=== PATIENT | male | born 2000 | race Caucasian/White ===

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

== ENCOUNTER → 2021-02-10 16:35 | Outpatient (CLI) | payer OTHER, SELFPAY ==
--- NOTE | 2021-02-10 16:43 | RAD_ITS ---
EXAM: XR ABDOMEN, 2 VIEWS CLINICAL INDICATION: RUQ ABD PAIN TECHNIQUE: Frontal view of the abdomen/pelvis with upright view of the abdomen. This report was created using [employer] report generation technology. COMPARISON: None. FINDINGS: LOWER THORAX: No acute pathology. INTRAPERITONEAL SPACE: No free air. GASTROINTESTINAL TRACT: Constipation. Stool throughout the colon. Non-obstructive. No bowel or stomach distention. ORGANS: Unremarkable as visualized. No organomegaly. No abnormal calcifications. BONES/JOINTS: No acute pathology. SOFT TISSUES: No acute pathology. RAD/Abd Inc Decub and/or Erect IMPRESSION: Constipation. Electronically Signed: Elder Gonsalez MD at 16:48 EDT , Service support ,
[2021-02-10 17:41] LABS: Absolute Lymphocyte Count 2.32 X10^3/uL (0.83-4.51); Absolute Neutrophil Count 4.2 X10^3/uL (2.0-7.7); Basophil# 0.05 X10^3/uL; Basophil% 0.7 % (0-1); Eosinophil# 0.06 X10^3/uL; Eosinophils% 0.8 % (0-5); Hematocrit 48.2 % (40-54); Hemoglobin 15.8 g/dL (13.0-16.5); Lymphocyte # 2.32 X10^3/ul (0.83-4.51); Lymphocyte % 31.4 % (19-41); Mean Corp Hgb Conc 32.8 g/dL (32-36); Mean Corpuscular Hgb 29.4 pg (27.0-32.0); Mean Corpuscular Volume 89.8 fL (80-94); Mean Platelet Vol. 9.7 fl (6.2-12.0); Monocyte# 0.77 X10^3/uL; Monocyte% 10.4 % (0-10); NRBC Flagged by Analyzer 0 % (0-5); Neutrophil # 4.16 X10^3/uL (2.7-7.7); Neutrophil % 56.4 % (47-70); Platelet Count 314 K/mm3 (150-450); RBC Distribution Width CV 12.8 % (11.6-14.6); RBC Distribution Width SD 41.8 fl (35.1-43.9); Red Blood Count 5.37 M/mm3 (4.6-6.2); White Blood Count 7.4 K/mm3 (4.4-11.0)
[2021-02-10 18:35] LABS: AST(SGOT) 18 U/L (15-37); Alanine Aminotransfer ALT/SGPT 28 U/L (16-61); Albumin, Serum 3.5 g/dL (3.2-5.0); Alkaline Phosphatase 59 U/L (45-117); Anion Gap 3 (5-15); BUN 11 mg/dL (7-18); BUN/Creat Ratio 11.5 RATIO (10-20); Calcium,Total 9.5 mg/dL (8.5-10.1); Chloride 107 mmol/L (98-107); Creatinine, Serum 0.96 mg/dL (0.70-1.30); EST Glomerular Filtration Rate 107 mL/min (>60); Est Glom Filt Rate - Afr Amer 129 mL/min (>60); Globulin 3.6 g/dL (2.2-4.2); Glucose 99 mg/dL (74-106); Lipase 98 U/L (73-393); Potassium 3.9 mmol/L (3.5-5.1); Protein, Total 7.1 g/dL (6.4-8.2); Sodium Level 141 mmol/L (136-145)
== END ==
PROVIDERS: PCP Family Medicine; Referring Provider Family Medicine; Visit Provider Family Medicine
DX: K59.00 Constipation, unspecified (principal)
CPT/HCPCS: 36415; 74019; 80053; 83690; 85025

== ENCOUNTER 2021-04-15 20:02 | Emergency (ER) | payer OTHER, SELFPAY ==
[2021-04-15 20:03] VITALS: BP 143/102; PULSE 120; RESP 18; TEMP 35.9; O2SAT 97; BMI 28.8
--- NOTE | 2021-04-15 22:06 | EDS_ITS ---
HPI History of Present Illness Chief Complaint: Dizziness Informant: patient Narrative Narrative: 21-year-old male with a history of hypertension and stroke presents to the emergency room following an episode where he felt lightheaded. 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 Symptoms have subsequently left. He states that he had a stroke earlier this year became concerned. He did not have any arm or leg symptoms denies any speech symptoms. Patient notes that while mixing chemicals did not have any dyspnea or coughing. He notes that he also has a history of anxiety and does feel somewhat anxious about healthcare. [facility] Medical History CVA (cerebral vascular accident) Hypertension Physical exam, pre-employment Home Medications lisinopril 10 mg PO DAILY 01/23/19 [History Last Taken Unknown] escitalopram oxalate [Lexapro] 10 mg PO DAILY 06/12/19 [History Last Taken Unknown] omeprazole 20 mg PO DAILY 06/12/19 [History Last Taken Unknown] buspirone 5 mg PO BID 08/19/20 [History Last Taken Unknown] aspirin 81 mg PO DAILY@0800 #30 tab.chew 08/20/20 [Rx Last Taken Unknown] atorvastatin 40 mg PO QHS #30 tablet 08/20/20 [Rx Last Taken Unknown] clopidogrel 75 mg PO DAILY #21 tablet 08/20/20 [Rx Last Taken Unknown] Allergy/AdvReac Type Severity Reaction Status Date / Time No Known Allergies Allergy Verified 04/15/21 20:05 Social History (Updated 04/15/21 @ 22:[address] Casa Cohen DO) Smoking Status: Never smoker substance use type: does not use ROS ROS ED Constitutional Constitutional ED: Denies chills, fever(s) or weight loss Eyes Eyes: Denies change in vision or diplopia ENT ENT ED: Denies ear pain, rhinorrhea or sore throat Cardiovascular Cardiovascular: Denies chest pain, orthopnea, palpitations or racing heartbeat Respiratory/Chest Respiratory/Chest: Denies cough, dyspnea or orthopnea Gastrointestinal Gastrointestinal: Reports abdominal pain; Denies diarrhea, nausea or vomiting Genitourinary Genitourinary ED: Denies dysuria, hematuria or urinary frequency Musculoskeletal Musculoskeletal: Denies arthralgias or myalgias Integumentary Denies abscess or rash Neurologic Neurologic: Reports other Details: Lightheadedness ; Denies headache(s) or weakness Psychiatric Psychiatric: Denies anxiety, depression, suicidal ideation or suicidal thoughts Endocrine Endocrinology: Denies polydipsia, polyphagia or polyuria Allergic/Immunologic Allergic/Immunologic ED: Denies mouth swelling, tongue swelling or urticaria EXAM Physical Exam Const Vital Signs: 04/15/21 20:03 04/15/21 21:09 04/15/21 22:08 Temperature 96.7 F L Temperature Source Temporal Pulse Rate 120 H 117 H Respiratory Rate 18 Respiratory Effort Normal Blood Pressure 143/102 H Blood Pressure Mean 115 Pulse Ox 97 93 Oxygen Delivery Method Room Air Room Air Positive well nourished and well developed General Appearance ED: well developed HEENT Reports normocephalic, head/scalp atraumatic and moist mucous membranes Eyes PERRL and EOMs intact bilaterally Neck no lymphadenopathy, supple and no JVD Resp normal respiratory effort and clear to auscultation bilaterally Cardio regular rate, regular rhythm and no murmurs GI normal to inspection, nondistended, normoactive bowel sounds and non-tender Palpation: soft Back/Spine no CVA tenderness and normal ROM Extremity normal to inspection General Extremety ED: Negative for edema General Extremity: Negative for edema Neuro oriented x3 and CN's II-XII intact bilaterally Sensorium / Orientation: alert Motor Exam: strength 5/5 throughout Psych mental status grossly normal Mood & Affect: Negative for depressed or tearful Skin no rashes or lesions noted and no wounds MDM MDM MDM Narrative Medical decision making narrative: Patient observed on the monitor. He remains tachycardic but I believe that this is most likely due to his anxiety and he concurs. Basic blood work showed no anemia. Renal function and liver function are normal. Electrolytes are checked. Noted glucose of 142 and was discussed with the patient that next time he has a doctor's appointment for primary care he should perhaps discuss fasting blood work. Lab Data Labs: Laboratory Results - last 24 hr 04/15/21 04/15/21 21:03 21:03 WBC 12.3 H RBC 5.29 Hgb 15.8 Hct 46.8 MCV 88.5 MCH 29.9 MCHC 33.8 RDW Std Deviation 41.3 RDW Coeff of Asya 12.8 Plt Count 287 MPV 9.5 Immature Gran % (Auto) 0.300 Neut % (Auto) 70.8 H Lymph % (Auto) 23.3 Titus % (Auto) 4.9 Eos % (Auto) 0.2 Baso % (Auto) 0.5 Absolute Neuts (auto) 8.7 H Absolute Lymphs (auto) 2.87 Nucleated RBC % 0 Sodium 140 Potassium 3.6 Chloride 106 Carbon Dioxide 29.0 Anion Gap 5 BUN 16 Creatinine 1.15 Estim Creat Clear Calc 102.46 Est GFR (MDRD) Af Amer 104 Est GFR (MDRD) Non-Af 86 BUN/Creatinine Ratio 13.9 Glucose 142 H Calcium 9.2 Total Bilirubin 0.30 AST 22 ALT 43 Alkaline Phosphatase 57 Total Protein 7.2 Albumin 3.5 Globulin 3.7 Albumin/Globulin Ratio 0.9 EKG Initial EKG: Attestation: I personally reviewed and interpreted this EKG as follows: Comments: Sinus tachycardia with a ventricular rate of 110 bpm Discharge Plan Triage Chief Complaint: Dizziness ED Provider: Casa Cohen Dx/Rx/DC Orders Clinical Impression: Light-headedness, Sinus tachycardia Instructions: ED Dizziness, Uncertain Cause Prescriptions: No Action lisinopril 5 MG tablet 10 mg PO DAILY RF: 0 omeprazole 20 MG capsule,delayed release(DR/EC) 20 mg PO DAILY RF: 0 escitalopram oxalate [Lexapro] 10 MG tablet 10 mg PO DAILY RF: 0 buspirone 5 MG tablet 5 mg PO BID RF: 0 atorvastatin 40 MG tablet 40 mg PO QHS Qty: 30 RF: 1 aspirin 81 MG tablet,chewable 81 mg PO DAILY@0800 Qty: 30 RF: 1 clopidogrel 75 MG tablet 75 mg PO DAILY Qty: 21 RF: 0 Primary Care Provider: Eusebio Galarza Referrals: Eusebio Galarza MD [Primary Care Provider] - As Needed Disposition Disposition: Home, Self Care
--- NOTE | 2021-04-15 22:06 | EKG12_ITS ---
Test Reason : DIZZY Blood Pressure : / mmHG Vent. Rate : 110 BPM Atrial Rate : 110 BPM P-R Int : 142 ms QRS Dur : 088 ms QT Int : 330 ms P-R-T Axes : 037 079 -23 degrees QTc Int : 446 ms Sinus tachycardia Nonspecific T wave abnormality Abnormal ECG Confirmed by JOSSELINE PITTMAN, KARTHIKEYAN ([id number]), senior editor YAMILA THAYER ([id number]) on 04/17/2021 8:23:31 AM Referred By: CHAYO Confirmed By:KARTHIKEYAN MANJARREZ MD
[2021-04-15 22:08] VITALS: PULSE 117; O2SAT 93
[2021-04-15 22:21] LABS: Absolute Lymphocyte Count 2.87 X10^3/uL (0.83-4.51); Absolute Neutrophil Count 8.7 X10^3/uL (2.0-7.7); Basophil# 0.06 X10^3/uL; Basophil% 0.5 % (0-1); Eosinophil# 0.03 X10^3/uL; Eosinophils% 0.2 % (0-5); Hematocrit 46.8 % (40-54); Hemoglobin 15.8 g/dL (13.0-16.5); Lymphocyte # 2.87 X10^3/ul (0.83-4.51); Lymphocyte % 23.3 % (19-41); Mean Corp Hgb Conc 33.8 g/dL (32-36); Mean Corpuscular Hgb 29.9 pg (27.0-32.0); Mean Corpuscular Volume 88.5 fL (80-94); Mean Platelet Vol. 9.5 fl (6.2-12.0); Monocyte% 4.9 % (0-10); NRBC Flagged by Analyzer 0 % (0-5); Neutrophil % 70.8 % (47-70); Platelet Count 287 K/mm3 (150-450); RBC Distribution Width CV 12.8 % (11.6-14.6); RBC Distribution Width SD 41.3 fl (35.1-43.9); Red Blood Count 5.29 M/mm3 (4.6-6.2); White Blood Count 12.3 K/mm3 (4.4-11.0)
[2021-04-15 22:37] LABS: ALB/GLOB Ratio 0.9 RATIO (0.9-2.4); AST(SGOT) 22 U/L (15-37); Alanine Aminotransfer ALT/SGPT 43 U/L (16-61); Albumin, Serum 3.5 g/dL (3.2-5.0); Alkaline Phosphatase 57 U/L (45-117); Anion Gap 5 (5-15); BUN 16 mg/dL (7-18); BUN/Creat Ratio 13.9 RATIO (10-20); Calcium,Total 9.2 mg/dL (8.5-10.1); Chloride 106 mmol/L (98-107); Creatinine, Serum 1.15 mg/dL (0.70-1.30); EST Glomerular Filtration Rate 86 mL/min (>60); Est Glom Filt Rate - Afr Amer 104 mL/min (>60); Estimated Creatinine Clearance 102.46 ml/min; Globulin 3.7 g/dL (2.2-4.2); Glucose 142 mg/dL (74-106); Potassium 3.6 mmol/L (3.5-5.1); Protein, Total 7.2 g/dL (6.4-8.2); Sodium Level 140 mmol/L (136-145)
[2021-04-15 22:39] VITALS: PULSE 116; RESP 18; O2SAT 96
== END 2021-04-15 22:46 | disposition home or self-care (01) ==
PROVIDERS: Emergency Provider Emergency Medicine; PCP Family Medicine
DX: R42 Dizziness and giddiness (principal); R00.0 Tachycardia, unspecified; F41.9 Anxiety disorder, unspecified; I10 Essential (primary) hypertension; Z79.82 Long term (current) use of aspirin; Z79.899 Other long term (current) drug therapy
CPT/HCPCS: 80053; 85025; 93005; 99284; A4216

== ENCOUNTER 2021-06-05 02:50 | Emergency (ER) | payer OTHER, SELFPAY ==
[2021-06-05 02:51] VITALS: BP 153/99; PULSE 119; RESP 18; TEMP 36.6; O2SAT 97; BMI 32.5
--- NOTE | 2021-06-05 03:18 | EDS_ITS ---
HPI History of Present Illness Chief Complaint: Dizziness Informant: patient Onset/Context/Timing Onset: Days (4-5) Context: Sudden Onset Timing: Intermittent and Lasts (minute or 2) Quality: spinning Location: head Current Severity: Gone Maximum Severity: Moderate Worsened by: certain movements, especially by bending over and standing back up Associated Symptoms Associated Symptoms: none Narrative Narrative: 21-year-old male presenting with intermittent vertigo over the past 4 or 5 days, started developing a mild headache tonight/this morning. He denies any diplopia or other vision changes, earache, recent URI or concurrent URI symptoms, tinnitus, or otorrhea. He denies any ataxia or problems walking. He is triggering every episode by certain head movements, especially when he bends over, and then also it gets triggered when he stands back up. Every time he gets an episode, it is short-lived as long as he remains still, and the symptoms resolve. He has had this occur in the past with some nausea but no nausea or vomiting this time. He is on aspirin and clopidogrel for a history of a small stroke, his presenting symptoms then were numbness on the right side, which resolved. He denies any peripheral neurologic symptoms with these symptoms now. [facility] Medical History CVA (cerebral vascular accident) Hypertension Physical exam, pre-employment Home Medications lisinopril 10 mg PO DAILY 01/23/19 [History Last Taken Unknown] escitalopram oxalate [Lexapro] 10 mg PO DAILY 06/12/19 [History Last Taken Unknown] omeprazole 20 mg PO DAILY 06/12/19 [History Last Taken Unknown] buspirone 5 mg PO BID 08/19/20 [History Last Taken Unknown] aspirin 81 mg PO DAILY@0800 #30 tab.chew 08/20/20 [Rx Last Taken Unknown] atorvastatin 40 mg PO QHS #30 tablet 08/20/20 [Rx Last Taken Unknown] clopidogrel 75 mg PO DAILY #21 tablet 08/20/20 [Rx Last Taken Unknown] meclizine 25 mg PO Q8H PRN PRN #20 tab 06/05/21 [Rx Last Taken Unknown] Allergy/AdvReac Type Severity Reaction Status Date / Time No Known Allergies Allergy Verified 06/05/21 02:55 Social History Smoking Status: Never smoker substance use type: does not use ROS ROS ED Constitutional Constitutional ED: Denies chills or fever(s) Eyes Eyes: Denies change in vision or diplopia ENT ENT ED: Denies rhinorrhea or sore throat Cardiovascular Cardiovascular: Denies chest pain or palpitations Respiratory/Chest Respiratory/Chest: Denies cough or dyspnea Gastrointestinal Gastrointestinal: Denies abdominal pain, diarrhea, nausea or vomiting Genitourinary Genitourinary ED: Denies dysuria or hematuria Musculoskeletal Musculoskeletal: Denies back pain or neck pain Integumentary Denies abscess or rash Neurologic Neurologic: Reports as per HPI, headache(s) and vertigo; Denies paresthesias or weakness Psychiatric Psychiatric: Denies anxiety or suicidal thoughts EXAM Physical Exam Const Vital Signs: 06/05/21 02:51 Temperature 97.9 F Temperature Source Temporal Pulse Rate 119 H Respiratory Rate 18 Blood Pressure 153/99 H Blood Pressure Mean 117 Pulse Ox 97 Oxygen Delivery Method Room Air Positive well nourished and well developed General Appearance ED: well developed and NAD HEENT Reports TM's normal bilaterally and moist mucous membranes normocephalic and atraumatic Eyes PERRL and EOMs intact bilaterally Eyes Narrative: No vertical or rotatory nystagmus. Neck full ROM and supple Resp normal respiratory effort and clear to auscultation bilaterally Cardio regular rate, regular rhythm and no murmurs GI non-tender and non-distended Auscultation: normoactive bowel sounds Palpation: soft Back/Spine no CVA tenderness General Back: other FROM Extremity normal to inspection General Extremety ED: Negative for edema, pulses abnormal or tenderness General Extremity: Negative for edema or pulses abnormal Neuro oriented x3, CN's II-XII intact bilaterally, no sensory deficits noted and deep tendon reflexes 2+ bilaterally Neuro Narrative: Normal gait. Normal [id number] and normal [id number] bilaterally. Sensorium / Orientation: awake and alert Motor Exam: strength 5/5 throughout Skin no rashes or lesions noted and no wounds MDM MDM MDM Narrative Medical decision making narrative: This patient has peripheral vertigo and has a benign exam, I do not think he needs further emergent work-up at this time. We will prescribe him meclizine to use as needed, if the symptoms persist without improvement for another 4 days or so, advised follow-up with otolaryngology. We discussed reasons to return to his comfortable with the plan. Discharge Plan Triage Chief Complaint: Dizziness ED Provider: Bassam Pittman Dx/Rx/DC Orders Clinical Impression: Peripheral positional vertigo Instructions: ED Vertigo, Unspecified Prescriptions: New meclizine [meclizine] 25 MG tablet 25 mg PO Q8H PRN PRN (Reason: Dizziness) Qty: 20 RF: 0 No Action lisinopril 5 MG tablet 10 mg PO DAILY RF: 0 omeprazole 20 MG capsule,delayed release(DR/EC) 20 mg PO DAILY RF: 0 escitalopram oxalate [Lexapro] 10 MG tablet 10 mg PO DAILY RF: 0 buspirone 5 MG tablet 5 mg PO BID RF: 0 atorvastatin 40 MG tablet 40 mg PO QHS Qty: 30 RF: 1 aspirin 81 MG tablet,chewable 81 mg PO DAILY@0800 Qty: 30 RF: 1 clopidogrel 75 MG tablet 75 mg PO DAILY Qty: 21 RF: 0 Primary Care Provider: Eusebio Galarza Referrals: Eusebio Galarza MD [Primary Care Provider] - Eusebio Downing MD [STAFF PHYSICIAN] - 1 Week if not improving Disposition Disposition: Home, Self Care
[2021-06-05] MEDS: Meclizine HCl 25 MG Tablet PO (03:20)
[2021-06-05 03:26] VITALS: BP 148/90; PULSE 116; RESP 18; O2SAT 98
== END 2021-06-05 03:27 | disposition home or self-care (01) ==
PROVIDERS: Emergency Provider Emergency Medicine; PCP Family Medicine; Visit Provider Emergency Medicine
DX: H81.399 Other peripheral vertigo, unspecified ear (principal); I10 Essential (primary) hypertension; Z79.82 Long term (current) use of aspirin; Z79.899 Other long term (current) drug therapy
CPT/HCPCS: 99282

== ENCOUNTER 2021-11-25 22:22 | Emergency (ER) | payer OTHER, SELFPAY ==
[2021-11-25 22:23] VITALS: BP 117/85; PULSE 130; RESP 16; TEMP 36.9; O2SAT 97; BMI 32.5
--- NOTE | 2021-11-25 23:11 | EDS_ITS ---
HPI History of Present Illness HPI Narrative: Patient presents with pain in his left hand that began today. Patient states he was eating tonight and felt pain in his left fifth MP joint. Patient is right- hand dominant. Patient was eating with his right hand. Patient states the pain began suddenly. Patient states pain is been constant. Patient denies any trauma or injury. Patient describes a severe cramping. Patient states it is better with movement. Patient denies any paresthesias or weakness. Patient denies any other injuries. Chief Complaint: Upper Extremity Injury Informant: patient Occured/Mechanism Comment: Sudden pain while eating Onset/Context/Timing Context: Sudden Onset Timing: Continuous Quality of Pain: - (Cramping) Location: Left fifth MP joint Worsened by: Nothing Relieved by: Movement Associated Symptoms Associated Symptoms: Negative for Parasthesia, Weakness or Loss of Funtion PFSH [facility] Medical History (Updated 11/25/21 @ 23:[address] Luca Barnes DO) Anxiety CVA (cerebral vascular accident) Hypertension Physical exam, pre-employment Allergy/AdvReac Type Severity Reaction Status Date / Time No Known Allergies Allergy Verified 11/25/21 22:25 Surgical History (Updated 11/25/21 @ 23:[address] Luca Barnes DO) History of tonsillectomy and adenoidectomy Social History Smoking Status: Never smoker substance use type: does not use ROS ROS ED Constitutional Constitutional ED: Denies chills or fever(s) Eyes Eyes: Denies blurry vision or change in vision ENT ENT ED: Denies rhinorrhea or sore throat Cardiovascular Cardiovascular: Denies chest pain or palpitations Respiratory/Chest Respiratory/Chest: Denies cough or dyspnea Gastrointestinal Gastrointestinal: Denies nausea or vomiting Genitourinary Genitourinary ED: Denies dysuria or hematuria Musculoskeletal Musculoskeletal: Denies back pain or neck pain Integumentary Denies abscess or rash Neurologic Neurologic: Denies headache(s) or weakness Allergic/Immunologic Allergic/Immunologic ED: Denies mouth swelling or urticaria EXAM Physical Exam Const Vital Signs: 11/25/21 22:23 Temperature 98.5 F Temperature Source Temporal Pulse Rate 130 H Respiratory Rate 16 Blood Pressure 117/85 H Blood Pressure Mean 95 Pulse Ox 97 Oxygen Delivery Method Room Air Positive well nourished, well developed and obese General Appearance ED: well developed and NAD Nutritional Appearance: obese HEENT Reports moist mucous membranes Extremity Extremity Narrative: There is tenderness over the left fifth MP joint and proximal phalanx. There is no edema or ecchymosis. There is no obvious deformity noted. Range of motion was slightly limited in flexion extension of the MP joint secondary to pain. There is no tenderness over the middle and distal phalanges. Capillary refill was less than 2 seconds in all digits. Radial pulses are equal bilaterally. Sensation was intact to light touch in the radial, median, and ulnar areas. Strength is 5/5 in the radial, median, and ulnar areas. Neuro oriented x3, CN's II-XII intact bilaterally, moves all extremities, no focal motor deficits and no sensory deficits noted Sensorium / Orientation: alert Motor Exam: strength 5/5 throughout Psych mental status grossly normal MDM MDM MDM Narrative Medical decision making narrative: I was going to order x-rays of the left hand however, patient states he needs to go to work tomorrow and does not want to have the x-rays done. Patient was given AlumaFoam splint. Patient was instructed to ice and elevate the left hand. Patient was instructed to take Tylenol or ibuprofen as needed for pain. Patient understood and was agreeable with the plan. All questions were answered. Discharge Plan Triage Chief Complaint: Upper Extremity Injury ED Provider: Luca Barnes Dx/Rx/DC Orders Clinical Impression: Left hand pain, Hypertension Instructions: ED Finger Sprain Primary Care Provider: Eusebio Galarza Referrals: Eusebio Galarza MD [Primary Care Provider] - 5-7 Days Disposition Disposition: Home, Self Care
[2021-11-25 23:34] VITALS: PULSE 125; RESP 18; O2SAT 98
== END 2021-11-25 23:36 | disposition home or self-care (01) ==
PROVIDERS: Emergency Provider Emergency Medicine; PCP Family Medicine; Visit Provider Emergency Medicine
DX: M79.642 Pain in left hand (principal); I10 Essential (primary) hypertension; E66.9 Obesity, unspecified; Z68.32 Body mass index [BMI] 32.0-32.9, adult; Z86.73 Personal history of transient ischemic attack (TIA), and cerebral infarction without residual deficits
CPT/HCPCS: 99282

== ENCOUNTER 2021-12-26 00:47 | Observation (INO) | payer OTHER, SELFPAY ==
[2021-12-26] VITALS (17 sets, daily range): BP systolic 137–171; BP diastolic 77–108; PULSE 84–140; RESP 15–27; TEMP 36.4–37.2; O2SAT 93–100; BMI 34.4; BMI 34.0
[2021-12-26 01:21] LABS: Bedside Glucose 147 mg/dL (74-106)
--- NOTE | 2021-12-26 01:24 | EKG12_ITS ---
Test Reason : DYSRHYTHMIA Blood Pressure : / mmHG Vent. Rate : 113 BPM Atrial Rate : 113 BPM P-R Int : 154 ms QRS Dur : 090 ms QT Int : 308 ms P-R-T Axes : 035 066 -42 degrees QTc Int : 422 ms Sinus tachycardia Nonspecific ST and T wave abnormality Abnormal ECG Confirmed by JOSSELINE PITTMAN, KARTHIKEYAN ([id number]), news videotape editor YAMILA THAYER ([id number]) on 12/26/2021 1:48:48 PM Referred By: BB Confirmed By:KARTHIKEYAN MANJARREZ MD
--- NOTE | 2021-12-26 01:24 | CT_ITS ---
EXAM: CT brain without contrast HISTORY: Neuro deficit, acute, stroke suspected -- vertigo, R paresthesias TECHNIQUE: CT Head Stroke Protocol W/O Contrast Injection A radiation dose optimization technique was used for this scan. COMPARISON: CT and MR brain 08/19/2020 LIMITATIONS: None. BRAIN: Chronic lacunar infarct in the left basal ganglia, correlating with prior infarct.. VENTRICLES: No hydrocephalus. EXTRA-AXIAL SPACES: No hemorrhages, fluid collections, or masses. CALVARIUM/SKULL BASE: Normal. FACE/SINUSES: Visualized portions normal. SOFT TISSUES: Normal. OTHER: None. CONCLUSION: No intracranial hemorrhage or acute territorial infarction. Chronic lacunar infarct in the left basal ganglia. N.B. : The above Results were Read Back by London Toro MD to Bassam Pittman MD, and understanding confirmed on 12/26/2021 01:57:00 (ET). Electronically Signed: London Toro MD at 1:54 EDT , CT/STROKE Brain/Head without Cont IMPRESSION: undefined
--- NOTE | 2021-12-26 01:25 | CT_ITS ---
We are attempting to reach an attending provider to discuss findings. An addendum with communication details will be sent when the communication is complete. STUDY: CTA HEAD AND NECK WITH CONTRAST REASON FOR EXAM: Male, 21 years old. Neuro deficit, acute, stroke suspected -- vertigo, R paresthesias RADIATION DOSAGE (If Supplied By Facility): CTDIvol = ( 13.96 ) mGy, DLP = ( 2223.51 ) mGycm TECHNIQUE: CT angiography was performed with a multi-detector CT scanner. Data acquisition was obtained from the skull base through the vertex following intravenous administration of IV 100mL Isovue-370. MIP images were reconstructed from the axial data set. Post-processing of the angiographic images was performed, with multiplanar reformation and 3D reconstruction. Individualized dose optimization techniques were used for this CT. COMPARISON: CTA head and neck 08/19/2020. FINDINGS: CAROTID ARTERIES: Normal. ANTERIOR CEREBRAL ARTERIES: Normal. MIDDLE CEREBRAL ARTERIES: Normal. POSTERIOR CEREBRAL ARTERIES: Normal. BASILAR ARTERY: Normal. VERTEBRAL ARTERIES: Diminutive right vertebral artery. VENOUS STRUCTURES: Normal. OTHER: None. AORTIC ARCH: Normal. CAROTID ARTERIES: Normal. VERTEBRAL ARTERIES: Normal. OTHER ARTERIES: Normal. VENOUS STRUCTURES: Normal. BONES/SOFT TISSUES: Nonspecific reversal of the normal cervical lordosis. OTHER: None. CT/STROKE CTA Head AND Neck W/Con IMPRESSION: Diminutive right vertebral artery, similar compared to the prior. Otherwise, no flow-limiting stenosis, aneurysm or dissection in the head and neck. Findings discussed with Dr. Bassam Pittman via phone at 11:13 PM PST on 12/25/2021. Electronically Signed: London Toro MD at 2:16 EDT ,
--- NOTE | 2021-12-26 01:27 | EDS_ITS ---
HPI History of Present Illness Chief Complaint: Neuro S/Sx Informant: patient Onset/Context/Timing Onset: Hours (4-4.5) Context: Sudden Onset Timing: Continuous Quality and Location: Positive for Right Arm Parasthesia and Right Leg Parasthesia Current Severity: Mild Maximum Severity: Mild Worsened by: nothing Relieved by: nothing Associated Symptoms Associated Symptoms: Negative for Headache, Nausea, Vomiting or Chest Pain Narrative Narrative: Patient states he was lying in bed, thinks maybe he turned his head and suddenly felt dizzy like he was spinning. No associated headache, loss of consciousness, feeling like he was going to faint, or nausea/vomiting. He states that was about 7 PM. He states around the same time, he noticed that his heart was racing a little. He does not notice that as much now. Additionally, about 2.5 hours later at 2130, he noticed numbness and tingling in his right hand and his right foot. No trouble speaking or understanding others, no weakness, no other new symptoms. The symptoms have now been there, he presents to the emergency department ambulatory with his father, and states that he had a TIA that he was admitted for here a year or so ago, discharged on aspirin and other prescription medications, he never followed up, and has not taken any of those medications in at least a year or so. He does not know why he had a TIA. He denies having COVID that he knew of prior to that. [facility] Medical History Anxiety CVA (cerebral vascular accident) Hypertension Physical exam, pre-employment Allergy/AdvReac Type Severity Reaction Status Date / Time No Known Allergies Allergy Verified 11/25/21 22:25 Surgical History History of tonsillectomy and adenoidectomy Social History Smoking Status: Current some day smoker tobacco type: e-cigarettes substance use type: does not use ROS ROS ED Constitutional Constitutional ED: Denies chills or fever(s) Eyes Eyes: Denies blurry vision, change in vision or diplopia ENT ENT ED: Denies ear pain, rhinorrhea, sore throat or tinnitus Cardiovascular Cardiovascular: Denies chest pain or palpitations Respiratory/Chest Respiratory/Chest: Denies cough or dyspnea Gastrointestinal Gastrointestinal: Denies abdominal pain, diarrhea, nausea or vomiting Genitourinary Genitourinary ED: Denies dysuria or hematuria Musculoskeletal Musculoskeletal: Denies back pain or neck pain Integumentary Denies abscess or rash Neurologic Neurologic: Reports as per HPI, paresthesias and vertigo; Denies headache(s) or weakness Psychiatric Psychiatric: Denies anxiety or suicidal thoughts EXAM Physical Exam Const Vital Signs: 12/26/21 00:51 12/26/21 01:24 12/26/21 01:51 Temperature 97.9 F Temperature Source Temporal Pulse Rate 134 H 140 H 121 H Respiratory Rate 22 H 22 H 27 H Blood Pressure 161/108 H 164/101 H 171/107 H Blood Pressure Mean 125 122 128 Pulse Ox 100 100 97 Oxygen Delivery Method Room Air Room Air Room Air 12/26/21 01:54 12/26/21 01:24 12/26/21 02:00 Temperature Temperature Source Pulse Rate 118 H 140 H 114 H Respiratory Rate 15 22 H 21 H Blood Pressure 171/107 H 164/101 H 171/107 H Blood Pressure Mean 128 122 128 Pulse Ox 98 100 98 Oxygen Delivery Method Room Air Room Air Room Air 12/26/21 01:24 12/26/21 02:14 12/26/21 02:30 Temperature Temperature Source Pulse Rate 113 H 115 H Respiratory Rate 26 H 25 H Blood Pressure 152/94 H 149/98 H Blood Pressure Mean 113 115 Pulse Ox 97 98 96 Oxygen Delivery Method Room Air Room Air Room Air 12/26/21 03:00 Temperature Temperature Source Pulse Rate 99 Respiratory Rate 24 H Blood Pressure 142/86 H Blood Pressure Mean 104 Pulse Ox 96 Oxygen Delivery Method Room Air Positive well nourished and well developed General Appearance ED: well developed and NAD HEENT Reports moist mucous membranes normocephalic and atraumatic Eyes PERRL and EOMs intact bilaterally Neck full ROM and supple Resp normal respiratory effort and clear to auscultation bilaterally Cardio regular rate, regular rhythm and no murmurs Rate: tachycardic GI non-tender and non-distended Auscultation: normoactive bowel sounds Palpation: soft Back/Spine no CVA tenderness General Back: other FROM Extremity normal to inspection General Extremety ED: Negative for edema, pulses abnormal or tenderness General Extremity: Negative for edema or pulses abnormal Neuro oriented x3, CN's II-XII intact bilaterally and no sensory deficits noted Sensorium / Orientation: awake and alert Motor Exam: strength 5/5 throughout Skin no rashes or lesions noted and no wounds STROKE Vital Signs/Narrative: Vital Signs Temp Pulse Resp BP Pulse Ox O2 Del Method 12/26/21 03:00 99 24 H 142/86 H 96 Room Air 12/26/21 02:30 115 H 25 H 149/98 H 96 Room Air 12/26/21 02:14 113 H 26 H 152/94 H 98 Room Air 12/26/21 01:24 97 Room Air 12/26/21 02:00 114 H 21 H 171/107 H 98 Room Air 12/26/21 01:24 140 H 22 H 164/101 H 100 Room Air 12/26/21 01:54 118 H 15 171/107 H 98 Room Air 12/26/21 01:51 121 H 27 H 171/107 H 97 Room Air 12/26/21 01:24 140 H 22 H 164/101 H 100 Room Air 12/26/21 00:51 97.9 F 134 H 22 H 161/108 H 100 Room Air NIHSS Initial: 1a Level of Consciousness: 0 1b LOC Questions (Score 2 if aphasic/stupor): 0 1c LOC Commands (Only score 1st attempt): 0 2 Best Gaze (If aphasic, use reflexive mvmts.): 0 3 Visual: 0 4 Facial Palsy: 0 5 Motor Arm Right (UN = amputation/fusion): 0 5 Motor Arm Left: 0 6 Motor Leg Right: 0 6 Motor Leg Left: 0 7 Limb ataxia (Only + if out of proportion): 0 8 Sensory (Aphasia/stupor=0 or 1, coma=2): 1 9 Best Language: 0 10 Dysarthria (mute, coma=2, intubated=UN): 0 11 Extinction and Inattention (only scored if +): 0 Total Score: 1 MDM MDM MDM Narrative Medical decision making narrative: Patient did indeed have an MRI of the brain in August 2020 showing several lacunar infarcts in the left basal ganglia. I did call a stroke team, and since the patient has unexplained tachycardia that appears to be sinus and an S1Q3T3 pattern and apparently a history of abnormal clotting, I sent for CT angiography of the chest to evaluate for pulmonary embolus simultaneous with the CTA of the head and neck. The plain CT was negative. I saw the patient back in the room simultaneous with the stroke neurologist via telemedicine, who evaluated the patient in real-time. His paresthesias have improved some but are still present. She and I both agree that IV tPA is not indicated due to nondisabling mild neurologic symptoms and findings, her NIHSS is 0 at the time of her evaluation. I discussed this with the patient and father and they are in agreement, he states he was much worse than this when he was seen here last August for similar symptoms. His CTA returned negative for LVO. His blood pressure is elevated, but not high enough to require emergent treatment/control. That will continue to be monitored closely. CT angiography of the chest negative for pulmonary embolus. The rest of his work-up is unremarkable. Plan is for admission for further stroke work-up and treatment. Lab Data Attestation: I reviewed the patient's lab results. Labs: Laboratory Results - last 24 hr 12/26/21 12/26/21 12/26/21 01:02 01:27 01:27 WBC 10.6 RBC 5.42 Hgb 16.2 Hct 47.7 MCV 88.0 MCH 29.9 MCHC 34.0 RDW Std Deviation 40.4 RDW Coeff of Asya 12.6 Plt Count 312 MPV 10.0 Immature Gran % (Auto) 0.200 Neut % (Auto) 48.0 Lymph % (Auto) 39.4 Roosevelt % (Auto) 10.9 H Eos % (Auto) 1.0 Baso % (Auto) 0.5 Absolute Neuts (auto) 5.1 Absolute Lymphs (auto) 4.19 Nucleated RBC % 0 PT 12.6 INR 1.0 APTT 26.7 Sodium Potassium Chloride Carbon Dioxide Anion Gap BUN Creatinine Estim Creat Clear Calc Est GFR (MDRD) Af Amer Est GFR (MDRD) Non-Af BUN/Creatinine Ratio Glucose Calcium Troponin I High Sens POC Glucose 147 H 12/26/21 01:27 WBC RBC Hgb Hct MCV MCH MCHC RDW Std Deviation RDW Coeff of Asya Plt Count MPV Immature Gran % (Auto) Neut % (Auto) Lymph % (Auto) Roosevelt % (Auto) Eos % (Auto) Baso % (Auto) Absolute Neuts (auto) Absolute Lymphs (auto) Nucleated RBC % PT INR APTT Sodium 142 Potassium 3.5 Chloride 107 Carbon Dioxide 28.0 Anion Gap 7 BUN 12 Creatinine 1.05 Estim Creat Clear Calc 108.57 Est GFR (MDRD) Af Amer 115 Est GFR (MDRD) Non-Af 95 BUN/Creatinine Ratio 11.4 Glucose 132 H Calcium 9.5 Troponin I High Sens < 3 L POC Glucose Radiography Diagnostic Testing: Clinical Impression(s) from Imaging Studies Brain CT 12/26/21 01:24 IMPRESSION: undefined Head/Neck CTA 12/26/21 01:25 IMPRESSION: Diminutive right vertebral artery, similar compared to the prior. Otherwise, no flow-limiting stenosis, aneurysm or dissection in the head and neck. Findings discussed with Dr. Bassam Pittman via phone at 11:13 PM PST on 12/25/2021. Electronically Signed: London Toro MD at 2:16 EDT Reading Location ID and State: [id number] / [employer] Tel , Service support , ADDENDUM: 12/26/21 0229 IMPRESSION: Diminutive right vertebral artery, similar compared to the prior. Otherwise, no flow-limiting stenosis, aneurysm or dissection in the head and neck. Findings discussed with Dr. Bassam Pittman via phone at 11:13 PM PST on 12/25/2021. N.B. : The above Results were Read Back by London Toro MD to Bassam Pittman MD, and understanding confirmed on 12/26/2021 02:22:46 (ET). Electronically Signed: London Toro MD at 2:16 EDT , Chest CTA 12/26/21 01:34 IMPRESSION: No pulmonary embolism to the subsegmental level.. Absent flow within the proximal right vertebral artery, similar compared to the prior. Electronically Signed: London Toro MD at 2:55 EDT , Rhythm Strip Rhythm Strip: Sinus Tach Rate: 115 Ectopy: None EKG Initial EKG: Attestation: I personally reviewed and interpreted this EKG as follows: Interpretation: No Acute Injury Pattern, Sinus Tachycardia, Inverted T- Waves (inf and lat precord leads) and Non-Specific ST Changes Comments: +S1Q3T3 pattern present Stroke Documentation Questions Stroke Team Activated: Yes Reviewed Inclusion/Exclusion criteria: Yes Was Patient considered for Endovascular Intervention?: No-CTA negative, determined not to be an endovascular candidate IV Alteplase (t-PA) Administered: No Critical Care Time Critical Care Time: Yes Critical care time (excluding procedures): 30-74 minutes (40 min), Including time spent:, Discussing w/Patient &/or Family/Ecommerce Analyst, Discussing w/Consultants, Arranging Admission or Transfer and Performing Direct Patient Care at Bedside Discharge Plan Dx/Rx/DC Orders Clinical Impression: Acute ischemic stroke, Vertigo, Noncompliance with medications, Tachycardia Disposition Disposition: Acute Care Hospital [facility]
[2021-12-26 01:32] LABS: Absolute Lymphocyte Count 4.19 X10^3/uL (0.83-4.51); Absolute Neutrophil Count 5.1 X10^3/uL (2.0-7.7); Basophil# 0.05 X10^3/uL; Basophil% 0.5 % (0-1); Eosinophil# 0.11 X10^3/uL; Hematocrit 47.7 % (40-54); Hemoglobin 16.2 g/dL (13.0-16.5); Lymphocyte # 4.19 X10^3/ul (0.83-4.51); Lymphocyte % 39.4 % (19-41); Mean Corpuscular Hgb 29.9 pg (27.0-32.0); Monocyte# 1.16 X10^3/uL; Monocyte% 10.9 % (0-10); NRBC Flagged by Analyzer 0 % (0-5); Neutrophil # 5.11 X10^3/uL (2.7-7.7); Platelet Count 312 K/mm3 (150-450); RBC Distribution Width CV 12.6 % (11.6-14.6); RBC Distribution Width SD 40.4 fl (35.1-43.9); Red Blood Count 5.42 M/mm3 (4.6-6.2); White Blood Count 10.6 K/mm3 (4.4-11.0)
--- NOTE | 2021-12-26 01:34 | CT_ITS ---
STUDY: CTA CHEST REASON FOR EXAM: Male, 21 years old. sob, tachycardia RADIATION DOSAGE (If Supplied By Facility): CTDIvol = ( 13.96 ) mGy, DLP = ( 2223.51 ) mGycm TECHNIQUE: The examination was performed with the intravenous administration of IV 100mL Isovue-370. Post-processing of the angiographic images was performed, with multiplanar reformation and 3D reconstruction. Individualized dose optimization techniques were used for this CT. COMPARISON: CTA head and neck 08/19/2020 FINDINGS: LUNGS: Normal. AORTA/GREAT VESSELS: No aneurysm. Absent flow in the proximal right vertebral artery, similar compared to the prior. PULMONARY VESSELS: Normal. PLEURA: Normal. MEDIASTINUM: Normal. UPPER ABDOMEN: Normal. BONES/SOFT TISSUES: Normal. OTHER: None. CT/CTA Chest W/WO Contrast IMPRESSION: No pulmonary embolism to the subsegmental level.. Absent flow within the proximal right vertebral artery, similar compared to the prior. Electronically Signed: London Toro MD at 2:55 EDT ,
[2021-12-26 01:42] LABS: Prothrombin Time (Protime)PT. 12.6 SECONDS (11.7-14.9)
[2021-12-26 01:43] LABS: Partial Thromboplast Time 26.7 Seconds (24.1-36.2)
[2021-12-26] MEDS: 0.9% Normal Saline 1,000 ML 999 ML IV (01:45)
[2021-12-26 01:50] LABS: Anion Gap 7 (5-15); BUN 12 mg/dL (7-18); BUN/Creat Ratio 11.4 RATIO (10-20); Calcium,Total 9.5 mg/dL (8.5-10.1); Chloride 107 mmol/L (98-107); Creatinine, Serum 1.05 mg/dL (0.70-1.30); EST Glomerular Filtration Rate 95 mL/min (>60); Est Glom Filt Rate - Afr Amer 115 mL/min (>60); Estimated Creatinine Clearance 108.57 ml/min; Glucose 132 mg/dL (74-106); Potassium 3.5 mmol/L (3.5-5.1); Sodium Level 142 mmol/L (136-145); Troponin-I HS < 3 pg/mL (3.0-78.0)
--- NOTE | 2021-12-26 03:51 | PCM.HP.STD ---
[facility] - General General Date of Admission: 12/26/21 Date of Service: 12/26/21 Chief Complaint: Dizziness after few hours right-sided numbness and weakness, night of 12/25/2021 HPI Narrative RENU LICEA, is a 21 M came to ER after he felt dizzy, spinning sensation about 7 PM on 12/25. After about 2 and half hours, about 2130 hrs., he felt right upper and right lower extremity numbness and weakness. His said he was feeling losing balance and walking. Of note, patient had subacute lacunar infarct in left sided basal ganglia in August 2020 during his previous admission. Patient is nonadherent to aspirin and is not taking it. It is also unclear whether he completed dual antiplatelet regimen, aspirin and Plavix for 3 weeks. This time, patient had CT head which did not show acute abnormality, head and neck CTA showed diminutive right vertebral artery similar to the previous imaging; otherwise no flow-limiting stenosis, aneurysm or dissection in head and neck. Chest CTA was also done because of S1,Q3, T3 pattern EKG and was negative for acute PE to subsegmental level. Twelve-lead EKG individually reviewed which showed sinus tachycardia at 113 bpm, S1,Q3, T3 pattern, NH 154 ms, QRS 90 ms. QTc 422 ms. In ED, patient was tachycardic, heart rate 120s to 140s per minute, respiratory rate 22-27, BP 170/107. Basic labs discussed in assessment plan but showed mild hyperglycemia, 132 mg/dL Patient is further admitted for complete work-up of suspected stroke. [facility] Medical History Anxiety CVA (cerebral vascular accident) Hypertension Physical exam, pre-employment Allergy/AdvReac Type Severity Reaction Status Date / Time No Known Allergies Allergy Verified 11/25/21 22:25 Surgical History History of tonsillectomy and adenoidectomy Social History Smoking Status: Current some day smoker tobacco type: e-cigarettes substance use type: does not use ROS ROS Narrative Constitutional: No fever, no URI. No headache HEENT: Mild dizziness and a spinning sensation. Reports systems reviewed and no addt'l complaints, except as documented Respiratory/Chest: Denies chest pain, shortness of breath at rest or with exertion Gastrointestinal: Denies coffee ground emesis, hematemesis or vomiting Genitourinary: Denies burning urination or new urinary tract symptoms Musculoskeletal: Reports joint pain and limited range of motion Neurologic: Denies seizure-like activity. As described in HPI skin: No ulcer. No rash Endocrinology: Reports systems reviewed and no addt'l complaints, except as documented Hematologic/Lymphatic: Reports systems reviewed and no addt'l complaints, except as documented Rest 14 ROS are negative except as mentioned in HPI Vital Signs Vital Signs Vital Signs: 12/26/21 00:51 12/26/21 01:24 12/26/21 01:51 Temperature 97.9 F Temperature Source Temporal Pulse Rate 134 H 140 H 121 H Respiratory Rate 22 H 22 H 27 H Blood Pressure 161/108 H 164/101 H 171/107 H Blood Pressure Mean 125 122 128 Pulse Ox 100 100 97 Oxygen Delivery Method Room Air Room Air Room Air 12/26/21 01:54 12/26/21 01:24 12/26/21 02:00 Temperature Temperature Source Pulse Rate 118 H 140 H 114 H Respiratory Rate 15 22 H 21 H Blood Pressure 171/107 H 164/101 H 171/107 H Blood Pressure Mean 128 122 128 Pulse Ox 98 100 98 Oxygen Delivery Method Room Air Room Air Room Air 12/26/21 01:24 12/26/21 02:14 12/26/21 02:30 Temperature Temperature Source Pulse Rate 113 H 115 H Respiratory Rate 26 H 25 H Blood Pressure 152/94 H 149/98 H Blood Pressure Mean 113 115 Pulse Ox 97 98 96 Oxygen Delivery Method Room Air Room Air Room Air 12/26/21 03:00 12/26/21 03:30 12/26/21 03:46 Temperature 98.9 F Temperature Source Temporal Pulse Rate 99 91 91 Respiratory Rate 24 H 23 H 23 H Blood Pressure 142/86 H 144/77 H 144/77 H Blood Pressure Mean 104 99 99 Pulse Ox 96 93 93 Oxygen Delivery Method Room Air Room Air Room Air 12/26/21 03:00 Temperature Temperature Source Pulse Rate 91 Respiratory Rate 23 H Blood Pressure 144/77 H Blood Pressure Mean 99 Pulse Ox 93 Oxygen Delivery Method Room Air Weight Weight: 226 lb 13.69 oz Body Mass Index (BMI) 34.4 Physical Exam Narrative Physical exam General: Alert, Oriented x3, Cooperative, obesity grade 3; BMI 34.5 kg/m? HEENT: Deep oropharyngeal structures could not be clearly visualized. Atraumatic, PERRLA, EOMI, Normocephalic Oral: No Gingival or Mucosal Lesions/ Ulcerations Neck: Supple, No JVD, Negative Carotid Bruits Lungs: Air entry diminished in bilateral lung bases. No crepitation/rhonchi Cardiovascular: Regular rate, Regular Rhythm, Normal S1, Normal S2, No murmurs Abdomen: Bowel Sounds Present, Soft, Non Tender, Non-Distended : No renal angle tenderness. No suprapubic tenderness. Extremities: No edema, Capillary Refill Less than 3 Seconds Skin: No rashes, No breakdown Musculoskeletal: No Tenderness to Palpation of Joints or Extremities. Muscle strength 5/5 at major joints of all extremities Neurological: Cranial nerves II-XII grossly intact, DTR 2+/4 and Symmetrical, NIHSS 0. No language deficit, dysarthria, dysphagia, dysphonia or muscle incoordination. Psych/Mental Status: Normal Affect, Appropriate. Results Lab / Micro Data Result Diagrams: 12/26/21 01:12/26/21 01: Labs: Laboratory Results - last 24 hr 12/26/21 01:02: POC Glucose 147 H 12/26/21:: WBC 10.6, RBC 5.42, Hgb 16.2, Hct 47.7, MCV 88.0, MCH 29.9, MCHC 34.0, RDW Std Deviation 40.4, RDW Coeff of Asya 12.6, Plt Count 312, MPV 10.0, Immature Gran % (Auto) 0.200, Neut % (Auto) 48.0, Lymph % (Auto) 39.4, Edwards % (Auto) 10.9 H, Eos % (Auto) 1.0, Baso % (Auto) 0.5, Absolute Neuts (auto) 5.1, Absolute Lymphs (auto) 4.19, Nucleated RBC % 0 12/26/21:: PT 12.6, INR 1.0, APTT 26.7 12/26/21 01:27: Sodium 142, Potassium 3.5, Chloride 107, Carbon Dioxide 28.0, Anion Gap 7, BUN 12, Creatinine 1.05, Estim Creat Clear Calc 108.57, Est GFR (MDRD) Af Amer 115, Est GFR (MDRD) Non-Af 95, BUN/Creatinine Ratio 11.4, Glucose 132 H, Calcium 9.5, Troponin I High Sens < 3 L Rhythm Strip Rhythm Strip: Sinus Tach Rate: 115 Ectopy: None Radiology Impression Brain CT 12/26/21 01:24 IMPRESSION: undefined ADDENDUM: 12/26/21307 IMPRESSION: undefined ADDENDUM: 12/26/21307 IMPRESSION: undefined Head/Neck CTA 12/26/21 01:25 IMPRESSION: Diminutive right vertebral artery, similar compared to the prior. Otherwise, no flow-limiting stenosis, aneurysm or dissection in the head and neck. Findings discussed with Dr. Bassam Pittman via phone at 11:13 PM PST on 12/25/2021. Electronically Signed: London Toro MD at 2:16 EDT Reading Location ID and State: [email or web address] / [employer] Tel , Service support , ADDENDUM: 12/26/21 0229 IMPRESSION: Diminutive right vertebral artery, similar compared to the prior. Otherwise, no flow-limiting stenosis, aneurysm or dissection in the head and neck. Findings discussed with Dr. Bassam Pittman via phone at 11:13 PM PST on 12/25/2021. N.B. : The above Results were Read Back by London Toro MD to Bassam Pittman MD, and understanding confirmed on 12/26/2021 02:22:46 (ET). Electronically Signed: London Toro MD at 2:16 EDT , Chest CTA 12/26/21 01:34 IMPRESSION: No pulmonary embolism to the subsegmental level.. Absent flow within the proximal right vertebral artery, similar compared to the prior. Electronically Signed: London Toro MD at 2:55 EDT , Assessment & Plan Assessment/Plan (1) Stroke-like symptoms: PLAN: Plan This is a 21-year-old question is being admitted for work-up for suspected stroke. 1. TIA/suspected stroke: Patient's symptoms of right-sided weakness and numbness has resolved by the time he came to ED. Patient evaluated by [facility] neurologist. No tPA recommended as patient symptoms improved. NIH stroke scale 0. CT does not show LVO or in fact unremarkable as in the previous CTA of August 2020. Recommended full stroke work-up with MRI head and echo. Fasting profile, A1c and TSH tomorrow AM. Stroke protocol with PT OT and speech therapy evaluation, BP and glucose control. 2. Lacunar infarct of left posterior putamen and posterior body of left caudate nucleus: Patient was admitted in August 2020. Full stroke work-up was done. Echo showed EF 65% with negative bubble study. Further patient had SAMIA which showed no thrombus detected in left atrial appendage. Small mobile echodensity on the atrial aspect of mitral valve apparatus compatible with Lambls excrescence. At that time patient was discharged on 30-day event monitor, dual antiplatelet agent and high intensity statin which patient is not adherent. Patient did not had any residual neurological deficit from previous stroke. 3. Hypertension: Keep BP as per stroke protocol, systolic about 150 in the next 24 hours. 4. Hyperglycemia: A1c tomorrow AM. Patient states he is not diabetic. 5. Dyslipidemia: Patient not taking statin. Fasting probably tomorrow a.m. 6. Suspected obstructive sleep apnea: Patient states he has difficulty falling asleep and sometimes he wakes up in middle of night. Suggested outpatient sleep study. CODE STATUS: Full code Charges/Coding Visit Charges OBSV E&M: 89789 Initial observation care L3
[2021-12-26 04:12] LABS: Magnesium 2.1 mg/dL (1.6-2.6)
--- NOTE | 2021-12-26 04:51 | MRI_ITS ---
HISTORY: STROKE. TECHNIQUE: Multiplanar and multisequence MR images of the brain were obtained without contrast. 286 images. COMPARISON: CT same day, MR 08/19/2020. FINDINGS: BRAIN PARENCHYMA: Multiple small foci of increased T2 FLAIR signal in the bilateral cerebral white matter again seen. Chronic left basal ganglia lacunar infarct. No abnormal focus of restricted diffusion. No acute intracranial hemorrhage identified. CSF SPACES: Cerebral ventricles, cortical sulci, and other extra-axial CSF spaces within normal limits in size for patient''s age. No significant midline shift or other mass effect.No extra-axial fluid collection. VASCULAR SYSTEM: Major intracranial flow voids are maintained. PARANASAL SINUSES AND MASTOID AIR CELLS: No significant air fluid levels. ORBITS: Symmetric contents. MRI/Brain without Contrast IMPRESSION: No evidence for acute infarct. Chronic lacunar infarct in the left basal ganglia. No significant interval change in mild white matter changes which can be seen with chronic small vessel ischemic gliosis, migraine related changes, or sequela of nonspecific demyelination or inflammation. Electronically Signed: Malu Valadez MD at 10:39 EDT ,
[2021-12-26] MEDS: Potassium Chloride Oral Tablet 20 MEQ 40 MEQ PO (05:38)
[2021-12-26] MEDS: 0.9% Saline Lock 10 ML Syringe IV (05:39)
[2021-12-26] MEDS: Lactated Ringers 1,000 ML 100 ML IV (05:40)
[2021-12-26 07:20] LABS: Anion Gap 4 (5-15); BUN 12 mg/dL (7-18); BUN/Creat Ratio 14.1 RATIO (10-20); Calcium,Total 8.7 mg/dL (8.5-10.1); Chloride 110 mmol/L (98-107); Cholesterol 161 mg/dL (200); Creatinine, Serum 0.85 mg/dL (0.70-1.30); EST Glomerular Filtration Rate 121 mL/min (>60); Est Glom Filt Rate - Afr Amer 146 mL/min (>60); Estimated Creatinine Clearance 134.12 ml/min; Glucose 102 mg/dL (74-106); High Density Lipoprotein 33 mg/dL; Sodium Level 141 mmol/L (136-145); Thyroid Stim Hormone (TSH) 1.78 uIU/mL (0.358-3.74); Triglycerides 56 mg/dL; Very Low Density Lipoprotein 11 mg/dL (5-40)
[2021-12-26 07:38] LABS: Hemoglobin A1c 5.8 % (3.8-5.6)
[2021-12-26] MEDS: Escitalopram Oxalate 10 MG Tablet PO (08:00)
[2021-12-26] MEDS: Aspirin 81 MG TAB.CHEW PO (08:00)
[2021-12-26 11:55] LABS: Bedside Glucose 92 mg/dL (74-106)
--- NOTE | 2021-12-26 12:00 | PCM.DC.SUM ---
Providers Date of Admission: 12/26/21 Date of Discharge: 12/26/21 Primary Care Physician: Dr. Eusebio Galarza MD Reason For Visit: SUSPECTED STROKE Diagnosis Discharge Diagnosis (1) Stroke-like symptoms: Status: Acute Code(s): R29.90 - Unspecified symptoms and signs involving the nervous system Medications at Discharge Home Medications amlodipine 5 mg tablet 5 mg PO DAILY #30 tabs 12/26/21 aspirin 81 mg chewable tablet 81 mg PO BREAKFAST #30 tabs 12/26/21 atorvastatin 20 mg tablet 20 mg PO QHS #30 tabs 12/26/21 escitalopram oxalate 10 mg tablet (Lexapro) 10 mg PO DAILY 12/26/21 Hospital Course Operations None Procedures - (MRI Brain) Summary of Care Provided Minutes Spent on Discharge: 36 Hospital Course: Luca Franco 21-year-old white male who presents emergency department was coming hospital on 12/26/2021 complaining of dizziness after a few hours of right-sided numbness and weakness on the night of 12/25/2021. Upon presentation the patient reported he felt dizzy with a spinning sensation that started a about 7 PM on 12/25/2021. After about 2 and half hours he felt that he had some right upper and right lower extremity weakness and numbness. He reported that he felt like he was losing balance and difficulty walking. The patient had a known history of subacute lacunar infarct in the left-sided basal ganglia in August 2020 at which time a SAMIA was performed and negative and a hypercoagulable panel was performed and negative. He was evaluated by neurology at that time and besides the above studies it was recommended that he proceed with aspirin 81 mg daily on a continual basis and he was placed on Plavix for 21 days after that period. The patient is currently only on Lexapro and has been noncompliant with his aspirin at baseline. He was also recommended he follow-up with neurology but the pt never proceeded with this follow-up after discharge. It was noted that he was hypertensive on arrival and he remained so throughout his stay. There is a documented h/o HTN but the pt was not taking any medication for this. A CT of his brain was done on presentation that showed no intra cranial hemorrhage or acute territorial infarction but did show his chronic lacunar infarct of the left basal ganglia consistent with his previous stroke. CTA of his head and neck showed a diminutive right vertebral artery which was unchanged from his previous study but otherwise no limiting stenosis, aneurysm, or dissection in the head or neck. CTA of his chest was performed showed absent flow within the proximal right vertebral artery similar to previous study from 08/19/2020. The echocardiogram done previously which was a SAMIA did not show any positive bubble study and no other significant abnormalities therefore was not repeated this admission. He was evaluated by stroke neurologist and emergency department who recommended further evaluation with an MRI but the torrential included TIA versus migraine. MRI performed on 12/26/2021 showed no acute abnormalities and redemonstrated his previous basal ganglia stroke. Hemoglobin A1c was obtained and found to be 5.8 and his cholesterol panel showed a total cholesterol of 161/LDL of 117/triglycerides of 56. We did start amlodipine 5 mg p.o. daily for his blood pressure elevation and I have encouraged him to follow-up with his primary care physician within the next 1 to 2 weeks for follow-up on his blood pressure. The patient did not ever follow-up with neurology previously and we have call to make an appointment with Dr. Diallo which will be on February 16, 2022 at 1 PM. This information was disseminated the patient prior to discharge both verbally and on his discharge paperwork. I have impressed on him the importance of following up given his previous stroke on MRI and with his neurological symptoms he experienced prior to this admission. We will restart his aspirin and I strongly impressed upon him the importance of continued antiplatelet therapy ongoing until he is evaluated by neurology. We also started him on atorvastatin 20 mg daily with his previous stroke his goal LDL is less than 70 and is currently 117. We also do suspect he has obstructive sleep apnea and have recommended an outpatient polysomnography which she will need to follow-up with his primary care physician to have ordered. He was discharged home in stable condition on 12/26/2021 Discharge diagnoses: Vertigo-resolved Left-sided weakness-resolved Hypertension Hyperlipidemia Suspected insulin resistance without DM-2 Suspected LINDSEY Obesity-BMI 34 Physical Exam Narrative He hadPatient reports all his symptoms have resolved since last evening. Feels well otherwise never followed up with neurology and stopped taking his aspirin. Const alert, oriented x3 and no apparent distress Constitutional Narrative: Obese young white male sitting up in bed, father bedside, patient appears comfortable nontoxic General Appearance: cooperative, comfortable, well kempt and well developed Orientation / Consciousness: awake Exam Limitations: no limitations Nutritional Appearance: obese HEENT normocephalic, head/scalp atraumatic, hearing grossly normal bilaterally and moist oral mucous membranes HEENT Narrative: Poor dentition for age, Mallampati 3, no thrush Eyes PERRL, EOMs intact bilaterally and conjunctivae normal Eyes Narrative: No scleral icterus Neck no lymphadenopathy, supple, no JVD and no carotid bruits Neck Narrative: Trachea midline, no thyroid enlargement, neck is short and thick Resp normal respiratory effort, no retractions, no use of accessory muscles and clear to auscultation bilaterally Auscultation: Negative for crackles, rales, rhonchi or wheezes Cardio regular rate, regular rhythm, S1 normal heart sound, S2 normal heart sound, no murmurs, no rub, no gallops, no clicks and no JVD GI normal to inspection, nondistended, normoactive bowel sounds, soft to palpation, non-tender and non-distended; Negative for hepatosplenomegaly Extremity no clubbing, cyanosis or edema Skin no rashes or lesions noted, no wounds, skin turgor normal and no jaundice Neuro oriented x3, CN's II-XII intact bilaterally, moves all extremities, no focal motor deficits and no sensory deficits noted Sensorium / Orientation: awake, alert, oriented to person, oriented to place and oriented to time Speech: speech normal Motor Exam: strength 5/5 throughout Psych Psych Narrative: Affect is mildly flat but patient's eye contact is good and interaction is normal Weight / BMI Weight Weight: 101.4 kg Body Mass Index (BMI) 34.0 ABG / Lab / Microbiology Data Result Diagrams: 12/26/21 01:27 12/26/21 06:35 Laboratory: Laboratory Results - last 24 hr 12/26/21 01:02: POC Glucose 147 H 12/26/21 01:27: WBC 10.6, RBC 5.42, Hgb 16.2, Hct 47.7, MCV 88.0, MCH 29.9, MCHC 34.0, RDW Std Deviation 40.4, RDW Coeff of Asya 12.6, Plt Count 312, MPV 10.0, Immature Gran % (Auto) 0.200, Neut % (Auto) 48.0, Lymph % (Auto) 39.4, [place] % (Auto) 10.9 H, Eos % (Auto) 1.0, Baso % (Auto) 0.5, Absolute Neuts (auto) 5.1, Absolute Lymphs (auto) 4.19, Nucleated RBC % 0 12/26/21 01:27: PT 12.6, INR 1.0, APTT 26.7 12/26/21 01:27: Sodium 142, Potassium 3.5, Chloride 107, Carbon Dioxide 28.0, Anion Gap 7, BUN 12, Creatinine 1.05, Estim Creat Clear Calc 108.57, Est GFR (MDRD) Af Amer 115, Est GFR (MDRD) Non-Af 95, BUN/Creatinine Ratio 11.4, Glucose 132 H, Calcium 9.5, Troponin I High Sens < 3 L 12/26/21 01:27: Magnesium 2.1 12/26/21 06:35: TSH 1.78 12/26/21 06:35: Sodium 141, Potassium 4.0, Chloride 110 H, Carbon Dioxide 27.0, Anion Gap 4 L, BUN 12, Creatinine 0.85, Estim Creat Clear Calc 134.12, Est GFR (MDRD) Af Amer 146, Est GFR (MDRD) Non-Af 121, BUN/Creatinine Ratio 14.1, Glucose 102, Calcium 8.7, Triglycerides 56, Cholesterol 161, LDL Cholesterol 117, VLDL Cholesterol 11, HDL Cholesterol 33 L 12/26/21 06:35: Hemoglobin A1c 5.8 H 12/26/21 11:20: POC Glucose 92 Radiography Diagnostic Testing: Radiology Impression Brain CT 12/26/21 01:24 IMPRESSION: undefined ADDENDUM: 12/26/21307 IMPRESSION: undefined ADDENDUM: 12/26/21307 IMPRESSION: undefined Head/Neck CTA 12/26/21 01:25 IMPRESSION: Diminutive right vertebral artery, similar compared to the prior. Otherwise, no flow-limiting stenosis, aneurysm or dissection in the head and neck. Findings discussed with Dr. Bassam Pittman via phone at 11:13 PM PST on 12/25/2021. Electronically Signed: London Toro MD at 2:16 EDT , ADDENDUM: 12/26/21 0229 IMPRESSION: Diminutive right vertebral artery, similar compared to the prior. Otherwise, no flow-limiting stenosis, aneurysm or dissection in the head and neck. Findings discussed with Dr. Bassam Pittman via phone at 11:13 PM PST on 12/25/2021. N.B. : The above Results were Read Back by London Toro MD to Bassam Pittman MD, and understanding confirmed on 12/26/2021 02:22:46 (ET). Electronically Signed: London Toro MD at 2:16 EDT , Chest CTA 12/26/21 01:34 IMPRESSION: No pulmonary embolism to the subsegmental level.. Absent flow within the proximal right vertebral artery, similar compared to the prior. Electronically Signed: London Toro MD at 2:55 EDT , Brain MRI 12/26/21 04:51 IMPRESSION: No evidence for acute infarct. Chronic lacunar infarct in the left basal ganglia. No significant interval change in mild white matter changes which can be seen with chronic small vessel ischemic gliosis, migraine related changes, or sequela of nonspecific demyelination or inflammation. Electronically Signed: Malu Valadez MD at 10:39 EDT , D/C Instructions Discharge Diet: Low fat / Low cholesterol Discharge Activity: Return to Normal Activity Return to work on: 12/27/21 Meaningful Use Info Meaningful Use Diagnoses (Choose all that apply): None applicable Discharge Plan Admission Admit Date/Time: 12/26/21 03:32 Primary Reason for Your Visit: Dizziness Attending Provider: Danielle Bronson Primary Care Provider: Eusebio Galarza Consulting Providers: George Eduardo Discharge Orders/Prescriptions Prescriptions: New aspirin 81 mg Tablet,Chewable 81 mg PO BREAKFAST Qty: 30 11RF amlodipine 5 mg tablet 5 mg PO DAILY Qty: 30 1RF atorvastatin 20 mg tablet 20 mg PO QHS Qty: 30 1RF Continued escitalopram oxalate [Lexapro] 10 mg Tablet 10 mg PO DAILY Referrals / Follow Up: Eusebio Galarza MD [Primary Care Provider] - Within 2 Weeks (follow-up for blood pressure and hospital follow-up) Freddie Diallo MD [Non-Staff] - 02/16/22 1:00 pm Disposition Disposition (needs filled in before D/C Order can be placed): Home, Self Care Charges/Coding Visit Charges Inpatient E&M: 94547 Disch Hosp
== END 2021-12-26 12:04 | disposition home or self-care (01) ==
LOC: ED 02:18 → PCU 04:01
PROVIDERS: Admitting Provider Internal Medicine; Emergency Provider Emergency Medicine; PCP Family Medicine; Visit Provider Internal Medicine
DX: R29.90 Unspecified symptoms and signs involving the nervous system (principal); R42 Dizziness and giddiness; Z91.14 Patient's other noncompliance with medication regimen; F17.290 Nicotine dependence, other tobacco product, uncomplicated; R26.2 Difficulty in walking, not elsewhere classified; Z86.73 Personal history of transient ischemic attack (TIA), and cerebral infarction without residual deficits; E78.5 Hyperlipidemia, unspecified; I10 Essential (primary) hypertension; E66.9 Obesity, unspecified; R00.0 Tachycardia, unspecified; R73.9 Hyperglycemia, unspecified; R20.2 Paresthesia of skin; R53.1 Weakness; Z68.34 Body mass index [BMI] 34.0-34.9, adult
CPT/HCPCS: 70450; 70496; 70498; 70551; 71275; 80048; 80061; 82962; 83036; 83735; 84443; 84484; 85025; 85610; 85730; 93005; 94762; 96360; 96361; 99218; 99251; 99285; J7030; J7120; Q9967; A4216; G0378; G0463

== ENCOUNTER 2022-03-26 23:23 | Emergency (ER) | payer OTHER, SELFPAY ==
[2022-03-26 23:25] VITALS: BP 159/101; PULSE 116; RESP 18; TEMP 36.7; O2SAT 98; BMI 31.9
[2022-03-26 23:45] VITALS: PULSE 92; RESP 16; O2SAT 97
--- NOTE | 2022-03-26 23:48 | EX.ED.DYSGE1 ---
HPI History of Present Illness Chief Complaint: Cold Sx Narrative Narrative: Patient presents with cold and congestion and lightheadedness for the past week. He has no fevers or chills or cough. He has no shortness of breath. He is also very interested in smoking cessation. He does not have a headache or neck pain. He has no cough. [facility] Medical History Anxiety CVA (cerebral vascular accident) Hypertension Noncompliance with medications Physical exam, pre-employment Tear of tendon of right upper extremity Home Medications amlodipine 5 mg tablet 5 mg PO DAILY #30 tabs 12/26/21 [Rx Last Taken Unknown] aspirin 81 mg chewable tablet 81 mg PO BREAKFAST #30 tabs 12/26/21 [Rx Last Taken Unknown] atorvastatin 20 mg tablet 20 mg PO QHS #30 tabs 12/26/21 [Rx Last Taken Unknown] escitalopram oxalate 10 mg tablet (Lexapro) 10 mg PO DAILY 12/26/21 [History Last Taken 12/23/21] Allergy/AdvReac Type Severity Reaction Status Date / Time No Known Allergies Allergy Verified 03/26/22 23:27 Surgical History History of tonsillectomy and adenoidectomy Social History Smoking Status: Never smoker substance use type: does not use ROS ROS ED ROS Narrative Past medical history: Reviewed Medications: Reviewed Social history: Smoker, he vapes Review of systems: All systems negative except as indicated General: No fever Eyes: No visual changes ENT: Some upper airway congestion and rhinorrhea. Neck: No neck pain Cardiovascular: No chest pain Respiratory: No shortness of breath or cough Gastrointestinal: No abdominal pain, nausea vomiting or diarrhea Genitourinary: No dysuria Musculoskeletal: Denies myalgias no difficulty with ambulation Skin: No rash Neurological: No memory loss, confusion or any focal weakness Psych: No recent behavioral changes Hematologic: No easy bleeding or easy bruising EXAM Physical Exam Narrative Exam Narrative: Physical exam General: Does not appear in any distress Head: Normocephalic, Atraumatic Eyes: Conjunctiva not pale ENT: TMs are clear. He has slight rhinorrhea and slight swollen nasal turbinates are they are pink. He has very slight postnasal drip but otherwise normal posterior oropharynx. Neck: Supple, Nontender, No lymphadenopathy Cardiovascular: Regular rate, Regular rhythm Respiratory: No distress, CTA bilaterally Abdomen: Soft, Nontender, Nondistended Back: Nontender, Normal Inspection. Negative for: CVA tenderness Extremities: Nontender, No edema Skin: Normal color, No rash Neurological: Alert, Normal Strength, Normal Sensation. He tells me he feels lightheaded he has no vertigo or disequilibrium but I did a cerebellar test which was normal I did a Romberg which was normal his gait is normal. Psychological: Slightly anxious l Const Vital Signs: 03/26/22 23:25 03/26/22 23:45 03/26/22 23:46 Temperature 98.0 F Temperature Source Temporal Pulse Rate 116 H 92 Respiratory Rate 18 16 Respiratory Pattern Normal Blood Pressure 159/101 H Blood Pressure Mean 120 Pulse Ox 98 97 Oxygen Delivery Method Room Air Room Air MDM MDM MDM Narrative Medical decision making narrative: Patient likely has an upper respiratory infection is likely getting better there is no need for antibiotics at this time. He is also slightly hypertensive I mention this to him and he needs to follow-up with PCP he is already on amlodipine, I told him to watch his diet, salt intake and take his blood pressures 2-3 times a day so his doctor can make an informed decision about his blood pressure treatment. Otherwise he is told to quit smoking, in fact I spent quite a bit of time on smoking cessation guidance. I believe he can be safely discharged home Discharge Plan Triage Chief Complaint: Cold Sx ED Provider: Ace Newman Dx/Rx/DC Orders Clinical Impression: Hypertension, Acute upper respiratory infection Instructions: Blood Pressure Check Steps, ED URI, Viral, No Abx (Adult) Prescriptions: No Action escitalopram oxalate [Lexapro] 10 mg Tablet 10 mg PO DAILY aspirin 81 mg Tablet,Chewable 81 mg PO BREAKFAST Qty: 30 11RF amlodipine 5 mg tablet 5 mg PO DAILY Qty: 30 1RF atorvastatin 20 mg tablet 20 mg PO QHS Qty: 30 1RF Primary Care Provider: Eusebio Galarza Referrals: Eusebio Galarza MD [Primary Care Provider] - 3-5 Days Disposition Disposition: Home, Self Care
== END 2022-03-26 23:57 | disposition home or self-care (01) ==
PROVIDERS: Emergency Provider Emergency Medicine; PCP Family Medicine; Visit Provider Emergency Medicine
DX: J06.9 Acute upper respiratory infection, unspecified (principal); I10 Essential (primary) hypertension; R42 Dizziness and giddiness; F17.290 Nicotine dependence, other tobacco product, uncomplicated
CPT/HCPCS: 99282

== ENCOUNTER 2022-04-05 02:57 | Emergency (ER) | payer OTHER, SELFPAY ==
[2022-04-05 02:58] VITALS: BP 145/95; PULSE 98; RESP 20; TEMP 36.1; O2SAT 94; BMI 32.5
[2022-04-05] MEDS: diazePAM 5 MG Tablet PO (04:20)
--- NOTE | 2022-04-05 05:38 | EDS_ITS ---
HPI History of Present Illness Chief Complaint: Dizziness Narrative Narrative: Patient is a 22-year-old male who states that he has noticed bouts of dizziness which he describes as more of a sense of motion when he moves his head. He states it came on earlier this evening and it seems to resolve if he is at rest but worsens as he changes positions. He denies any trauma or headache or change in vision. He denies any chest pain or palpitations associated with this. However the symptoms have persisted throughout the evening he presents for evaluation [facility] Medical History Anxiety CVA (cerebral vascular accident) Hypertension Noncompliance with medications Physical exam, pre-employment Tear of tendon of right upper extremity Home Medications amlodipine 5 mg tablet 5 mg PO DAILY #30 tabs 12/26/21 [Rx Last Taken Unknown] aspirin 81 mg chewable tablet 81 mg PO BREAKFAST #30 tabs 12/26/21 [Rx Last Taken Unknown] atorvastatin 20 mg tablet 20 mg PO QHS #30 tabs 12/26/21 [Rx Last Taken Unknown] escitalopram oxalate 10 mg tablet (Lexapro) 10 mg PO DAILY 12/26/21 [History Last Taken 12/23/21] diazepam 5 mg tablet (Valium) 5 mg PO TID PRN Dizziness/vertigo 5 days #15 tabs 04/05/22 [Rx Last Taken Unknown] Allergy/AdvReac Type Severity Reaction Status Date / Time No Known Allergies Allergy Verified 04/05/22 04:25 Surgical History History of tonsillectomy and adenoidectomy Social History Smoking Status: Never smoker substance use type: does not use ROS ROS ED Constitutional Constitutional ED: Denies chills or fever(s) Eyes Eyes: Denies change in vision ENT ENT ED: Denies sore throat Cardiovascular Cardiovascular: Denies chest pain Respiratory/Chest Respiratory/Chest: Denies cough or dyspnea Gastrointestinal Gastrointestinal: Denies abdominal pain, diarrhea, nausea or vomiting Genitourinary Genitourinary ED: Denies dysuria Musculoskeletal Musculoskeletal: Denies myalgias Integumentary Denies rash Neurologic Neurologic: Reports other Details: Positive dizziness ; Denies headache(s) Hematologic/Lymphatic Hematologic/Lymphatic: Denies easy bleeding or easy bruising EXAM Physical Exam Const Vital Signs: 04/05/22 02:58 04/05/22 04:24 Temperature 96.9 F L Temperature Source Temporal Pulse Rate 98 Respiratory Rate 20 H Respiratory Effort Normal Respiratory Pattern Normal Blood Pressure 145/95 H Blood Pressure Mean 111 Pulse Ox 94 Oxygen Delivery Method Room Air Positive well nourished and well developed General Appearance ED: well developed HEENT Reports moist mucous membranes Eyes PERRL and EOMs intact bilaterally Neck supple Resp normal respiratory effort and clear to auscultation bilaterally Cardio regular rate and regular rhythm Extremity normal to inspection Neuro oriented x3 and CN's II-XII intact bilaterally Neuro Narrative: Mild horizontal nystagmus is noted and patient has a positive Hallpike Phuc exam on right. No pronator drift no dysmetria no truncal ataxia. NIH stroke scale score of 0 Sensorium / Orientation: alert Psych mental status grossly normal Skin no rashes or lesions noted MDM MDM MDM Narrative Medical decision making narrative: Patient presented to the ER slightly hypertensive but has a past medical history of this. Otherwise he is a normal neurologic exam with stroke scale score of 0. His history and exam is most consistent with peripheral vertigo as he has dizziness described as a sense of motion with changes in position that resolves at rest and he has horizontal nystagmus and positive Hallpike Phuc exam. Therefore this time I do not feel there is need for imaging or laboratory studies. Patient was given oral Valium and then ambulated in the ER. He was able to do so with a steady gait and had improvement of his dizziness and therefore he is safe for discharge. Discharge Plan Triage Chief Complaint: Dizziness ED Provider: Cas Gordon Dx/Rx/DC Orders Clinical Impression: Peripheral positional vertigo Instructions: Vestibular Rehab Therapy, ED BPV Vertigo Prescriptions: New diazepam [Valium] 5 mg tablet 5 mg PO TID PRN (Reason: Dizziness/vertigo) 5 Days Qty: 15 0RF No Action escitalopram oxalate [Lexapro] 10 mg Tablet 10 mg PO DAILY aspirin 81 mg Tablet,Chewable 81 mg PO BREAKFAST Qty: 30 11RF amlodipine 5 mg tablet 5 mg PO DAILY Qty: 30 1RF atorvastatin 20 mg tablet 20 mg PO QHS Qty: 30 1RF Primary Care Provider: Eusebio Galarza Referrals: Eusebio Galarza MD [Primary Care Provider] - Activity Restrictions/Additional Instructions: Please take the Valium as directed to help control any vertigo symptoms. You may try the Keven maneuver at home to help with symptoms as well. Return to the ER should you have any further concerns or worsening of symptoms Disposition Disposition: Home, Self Care Discharge Date/Time: 04/05/22 05:43
[2022-04-05 05:39] VITALS: PULSE 78; RESP 17; O2SAT 99
== END 2022-04-05 05:43 | disposition home or self-care (01) ==
LOC: ED 03:12
PROVIDERS: Emergency Provider Emergency Medicine; PCP Family Medicine; Visit Provider Emergency Medicine
DX: R42 Dizziness and giddiness (principal); I10 Essential (primary) hypertension
CPT/HCPCS: 99283

== ENCOUNTER 2022-04-30 17:48 | Emergency (ER) | payer OTHER, SELFPAY ==
[2022-04-30 17:50] VITALS: BP 140/102; PULSE 97; RESP 15; TEMP 36.2; O2SAT 98; BMI 31.9
--- NOTE | 2022-04-30 19:28 | EX.ED.UPPERE ---
HPI History of Present Illness HPI Narrative: 22-year-old male history of prior shoulder injury 7 years ago. Complaining of recurrent pain. No fever. No recent trauma. He is also had a history of TIAs. Chief Complaint: Upper Extremity Injury Informant: patient Occured/Mechanism Mechanism/Context: No injury and No blunt trauma Onset/Context/Timing Onset: Days Context: Gradual Onset Timing: Continuous Quality of Pain: Dull and Aching Current Severity: Mild Maximum Severity: Mild Associated Symptoms Associated Symptoms: Negative for Parasthesia, Weakness or Loss of Funtion Narrative Narrative: 22-year-old male history of prior right shoulder injury never needed surgery. That was 7 years ago. Also reportedly history of TIAs. States in the last week he has had recurrent right shoulder discomfort. More pain with range of motion. No falls or trauma. No weakness. Prior similar symptoms: Yes Recent Illness/Hospitalization: No PFSH PFSH Medical History Anxiety CVA (cerebral vascular accident) Hypertension Noncompliance with medications Physical exam, pre-employment Tear of tendon of right upper extremity Home Medications amlodipine 5 mg tablet 5 mg PO DAILY #30 tabs 12/26/21 [Rx Last Taken Unknown] aspirin 81 mg chewable tablet 81 mg PO BREAKFAST #30 tabs 12/26/21 [Rx Last Taken Unknown] atorvastatin 20 mg tablet 20 mg PO QHS #30 tabs 12/26/21 [Rx Last Taken Unknown] escitalopram oxalate 10 mg tablet (Lexapro) 10 mg PO DAILY 12/26/21 [History Last Taken 12/23/21] diazepam 5 mg tablet (Valium) 5 mg PO TID PRN Dizziness/vertigo 5 days #15 tabs 04/05/22 [Rx Last Taken Unknown] Allergy/AdvReac Type Severity Reaction Status Date / Time No Known Allergies Allergy Verified 04/30/22 17:54 Surgical History History of tonsillectomy and adenoidectomy Social History Smoking Status: Never smoker substance use type: does not use ROS ROS ED ROS Narrative Denies recent illness. Review of Systems ROS Unobtainable: Denies due to encephalopathy Constitutional Constitutional ED: Denies chills or fever(s) Eyes Eyes: Denies blurry vision Cardiovascular Cardiovascular: Denies chest pain Respiratory/Chest Respiratory/Chest: Denies cough or dyspnea Gastrointestinal Gastrointestinal: Denies abdominal pain Genitourinary Genitourinary ED: Denies dysuria Integumentary Denies abscess Neurologic Neurologic: Denies headache(s) Psychiatric Psychiatric: Denies anxiety Endocrine Endocrinology: Denies cold intolerance Hematologic/Lymphatic Hematologic/Lymphatic: Denies easy bleeding Allergic/Immunologic Allergic/Immunologic ED: Denies mouth swelling or tongue swelling EXAM Physical Exam Narrative Exam Narrative: Well-appearing 22-year-old male. Vital signs stable afebrile. Sitting upright in bed. H EENT exam normal. No facial droop. Normal speech. Neck nontender no lymphadenopathy. Lungs clear to auscultation bilaterally. Heart regular rhythm no murmur. Abdomen soft nontender. Patient moves all 4 extremities. Specifically the right shoulder has mild tenderness. However he has full internal and external rotation. AB and adduction. He can lift his hand above his head. There is no signs of any type of rotator cuff tear. 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 Normal radial pulse. Normal flexion-extension of his wrist and elbow. Shoulder is not swollen. No redness. No bony deformity. Neurologic exam normal. NIH is 0. Const Vital Signs: 04/30/22 17:50 Temperature 97.2 F L Temperature Source Temporal Pulse Rate 97 Respiratory Rate 15 Blood Pressure 140/102 H Blood Pressure Mean 114 Pulse Ox 98 Oxygen Delivery Method Room Air Positive well nourished and well developed; Negative for obese, cachectic, contractures or unkempt General Appearance ED: well developed and NAD; Negative for unkempt, cachectic, contractures, cyanotic or diaphoretic Nutritional Appearance: Negative for cachectic or obese HEENT Reports moist mucous membranes normocephalic and atraumatic; Negative for trauma or tenderness Eyes PERRL and EOMs intact bilaterally General Eye ED: Negative for other Neck full ROM and supple General: Negative for tenderness Lymph Lymphatic: Negative for other Chest Wall inspection of chest normal and palpation of chest normal Chest: Negative for other Resp normal respiratory effort and clear to auscultation bilaterally Effort and Inspection: Negative for pain with movement Auscultation: Negative for rales, rhonchi or wheezes Cardio regular rate, regular rhythm, S1 normal heart sound, S2 normal heart sound and no murmurs Rate: Negative for bradycardia or tachycardic Rhythm: Negative for abnormal rhythm GI non-tender, non-distended and no masses Inspection: Negative for abdominal distention Auscultation: normoactive bowel sounds Palpation: soft; Negative for tender or guarding Back/Spine no CVA tenderness General Back: Negative for CVA tenderness Cervical Spine: Negative for cervical spine tenderness Thoracic Spine / Upper Back: Negative for thoracic spinal tenderness Lumbar Spine / Lower Back: Negative for lumbar spinal tenderness or straight leg raise positive - left Extremity normal to inspection and full ROM Extremity Narrative: Mild right shoulder tenderness. However full range of motion. Normal strength. No rotator cuff tear. 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 Normal radial pulse. Normal sensation. General Extremety ED: Negative for edema General Extremity: Negative for edema Neuro oriented x3, CN's II-XII intact bilaterally, moves all extremities, no focal motor deficits and no sensory deficits noted Sensorium / Orientation: alert, oriented to person, oriented to place and oriented to time; Negative for orientation impaired, lethargic or stuporous Motor Exam: strength 5/5 throughout Psych mental status grossly normal Appearance: Negative for unkempt Attitude: No agitated Mood & Affect: Negative for depressed, anxious or tearful Skin General Skin Exam: Negative for petechiae Lesions: no lesions Rashes: no rashes Trauma: no lacerations or abrasions MDM MDM MDM Narrative Medical decision making narrative: Patient reportedly with a prior right shoulder injury 7 years ago. Complaining of recurrent discomfort over the last week. Exam there is no rotator cuff injury. He has had no recent trauma. I suspect that he had a prior rotator cuff strain. He has recurrent inflammation. There is no signs of this being a TIA or CVA. He does not need any x-rays because there is been no recent trauma. He will be placed on Motrin for pain. Ice. Follow-up with orthopedics. Discharge Plan Triage Chief Complaint: Upper Extremity Injury ED Provider: Rashi Abreu Dx/Rx/DC Orders Clinical Impression: Acute pain of right shoulder, History of TIAs Instructions: ED Shoulder Sprain Prescriptions: No Action escitalopram oxalate [Lexapro] 10 mg Tablet 10 mg PO DAILY aspirin 81 mg Tablet,Chewable 81 mg PO BREAKFAST Qty: 30 11RF amlodipine 5 mg tablet 5 mg PO DAILY Qty: 30 1RF atorvastatin 20 mg tablet 20 mg PO QHS Qty: 30 1RF diazepam [Valium] 5 mg tablet 5 mg PO TID PRN (Reason: Dizziness/vertigo) 5 Days Qty: 15 0RF Primary Care Provider: Eusebio Galarza Referrals: Eusebio Galarza MD [Primary Care Provider] - Dario Bauman MD [Med Staff - Active Staff] - 1 Week Activity Restrictions/Additional Instructions: Ice to shoulder decrease pain and inflammation. Motrin 400 to 600 mg 3 times a day to decrease pain and inflammation. Follow-up with orthopedic doctor if not improving. Disposition Disposition: Home, Self Care
== END 2022-04-30 19:40 | disposition home or self-care (01) ==
PROVIDERS: Emergency Provider Emergency Medicine; PCP Family Medicine; Visit Provider Emergency Medicine
DX: M25.511 Pain in right shoulder (principal); Z79.82 Long term (current) use of aspirin; Z79.899 Other long term (current) drug therapy; Z86.73 Personal history of transient ischemic attack (TIA), and cerebral infarction without residual deficits
CPT/HCPCS: 99282

== ENCOUNTER 2022-05-31 19:38 | Emergency (ER) | payer OTHER, SELFPAY ==
[2022-05-31 19:41] VITALS: BP 184/98; PULSE 120; RESP 18; TEMP 36.3; O2SAT 97; BMI 31.9
--- NOTE | 2022-05-31 19:43 | ED.RN ---
DR ALY AND MEL MADE AWARE OF PT'S SYMPTOMS. NO STROKE ALERT CALLED AT THIS TIME
--- NOTE | 2022-05-31 19:47 | SDCEKG_ITS ---
Test Reason : DIZZINESS Blood Pressure : / mmHG Vent. Rate : 111 BPM Atrial Rate : 111 BPM P-R Int : 142 ms QRS Dur : 082 ms QT Int : 326 ms P-R-T Axes : 038 063 -22 degrees QTc Int : 443 ms Sinus tachycardia T wave abnormality, consider inferior ischemia Abnormal ECG Confirmed by ROBYN PITTMAN, CHRISTINE ([id number]), publications editor YAMILA THAYER ([id number]) on 06/02/2022 9:31:19 AM Referred By: Confirmed By:CHRISTINE CARLSON MD
--- NOTE | 2022-05-31 19:47 | CT_ITS ---
INDICATION: numbness EXAMINATION: CT BRAIN - CT Head or Brain W/O Contrast Injection TECHNIQUE: Multiple axial images were obtained of the head without intravenous contrast. A radiation dose optimization technique was used for this scan. IV Contrast dosage and agent: None. COMPARISON: 12/26/2021 FINDINGS: BRAIN PARENCHYMA: No intra- or extra-axial hemorrhage. No acute territorial infarction. Stable chronic lacunar infarction left basal ganglia. No intracranial mass or mass effect. Posterior fossa structures are unremarkable. CSF SPACES: Appropriate for age. No hydrocephalus. Basal cisterns are patent. CALVARIUM, SKULL BASE, PARANASAL SINUSES AND MASTOID AIR CELLS: Clear. No discrete lytic or blastic abnormalities. ORBITS: Both globes, extraocular muscles, optic nerves and retrobulbar fat appear unremarkable. CT/Brain/Head without Contrast IMPRESSION: No acute intracranial findings. Electronically Signed: Brian Sandoval MD at 20:55 EST ,
--- NOTE | 2022-05-31 19:55 | EX.ED.DYSGE1 ---
HPI History of Present Illness Chief Complaint: Neuro S/Sx Narrative Narrative: Patient presents with numbness in his arm and leg, the best he can describe it is that it feels strange but is not completely numb. He has no fever or chills no face involvement he has no weakness he has no difficulty speaking or confusion no vision changes no balance issues. He had a recent work-up for similar symptoms had an overt normal CT angiogram of the head and neck and normal MRI. He was referred to neurology but he did not followe up [facility] Medical History Anxiety CVA (cerebral vascular accident) Hypertension Noncompliance with medications Physical exam, pre-employment Tear of tendon of right upper extremity Home Medications aspirin 81 mg chewable tablet 81 mg PO BREAKFAST #30 tabs 12/26/21 [Rx Last Taken Unknown] atorvastatin 20 mg tablet 20 mg PO QHS #30 tabs 12/26/21 [Rx Last Taken Unknown] escitalopram oxalate 10 mg tablet (Lexapro) 10 mg PO DAILY 12/26/21 [History Last Taken 12/23/21] Allergy/AdvReac Type Severity Reaction Status Date / Time No Known Allergies Allergy Verified 05/31/22 19:42 Surgical History History of tonsillectomy and adenoidectomy Social History Smoking Status: Current every day smoker tobacco type: e-cigarettes substance use type: does not use ROS ROS ED ROS Narrative Past medical history: Reviewed, mostly unremarkable he has a history of hypertension, as well as tachycardia especially when he is stressed, he tells me he is stressed currently. Medications: Reviewed Social history: Noncontributory Review of systems: All systems negative except as indicated General: No fever Eyes: No visual changes ENT: No upper airway congestion, normal voice Neck: No neck pain Cardiovascular: No chest pain Respiratory: No shortness of breath or cough Gastrointestinal: No abdominal pain, nausea vomiting or diarrhea Genitourinary: No dysuria Musculoskeletal: Denies myalgias no difficulty with ambulation Skin: No rash Neurological: As in HPI Psych: No recent behavioral changes Hematologic: No easy bleeding or easy bruising EXAM Physical Exam Narrative Exam Narrative: Physical exam General: Well nourished, Well developed, No Acute Distress Head: Normocephalic, Atraumatic Eyes: Conjunctiva not pale ENT: Moist mucous membranes Neck: Supple, Nontender, No lymphadenopathy Cardiovascular: Regular tachycardia Respiratory: No distress, CTA bilaterally Abdomen: Soft, Nontender, Nondistended Back: Nontender, Normal Inspection. Negative for: CVA tenderness Extremities: Nontender, No edema Skin: Normal color, No rash Neurological: Alert, Normal Strength, Normal Sensation Psychological: Normal affect Const Vital Signs: 05/31/22 19:41 Temperature 97.3 F L Temperature Source Temporal Pulse Rate 120 H Respiratory Rate 18 Blood Pressure 184/98 H Blood Pressure Mean 126 Pulse Ox 97 MDM MDM MDM Narrative Medical decision making narrative: A. Problems addressed ( does not have to be diagnoses) B. Amount and/or complexity of the data (2 out of 3) 1. Any 3 I reviewed prior notes from Dr. Eduardo on 12/26/2021 as well as prior MRI and CT angiogram of the head and neck which were negative. CBC and CMP were ordered and interpreted by me I discussed the patient with his friend who was in the room 2. Independent interpretation of test Telemetry: Sinus rhythm with a rate in the 120s, no ectopy. C. Risk of complications and/or morbidity Differential diagnosis: I was worried about TIA, however the patient recently had an MRI which was negative. Her CT here is also negative. I am worried about possible other neurological pathologies like multiple sclerosis, he will need an outpatient work-up and I will refer him again to neurology. I have thought about admitting the patient, however the patient recently was admitted for a TIA, had normal work-up therefore especially that I cannot reproduce his symptoms I believe it is reasonable to be discharged home and get an outpatient neurology follow-up. Patient also has significant anxiety, he is tachycardic and he tells me every time he is anxious he gets tachycardic and this is not abnormal, after observing him in the ED his heart rate did improve and his anxiety also improved. Lab Data Labs: Laboratory Results - last 24 hr 05/31/22 05/31/22 19:54 19:54 WBC 10.2 RBC 5.59 Hgb 16.4 Hct 48.8 MCV 87.3 MCH 29.3 MCHC 33.6 RDW Std Deviation 41.6 RDW Coeff of Asya 13.0 Plt Count 305 MPV 9.2 Immature Gran % (Auto) 0.200 Neut % (Auto) 66.3 Lymph % (Auto) 25.4 [place] % (Auto) 6.9 Eos % (Auto) 0.7 Baso % (Auto) 0.5 Absolute Neuts (auto) 6.8 Absolute Lymphs (auto) 2.58 Nucleated RBC % 0 Sodium 140 Potassium 3.5 Chloride 108 H Carbon Dioxide 27.0 Anion Gap 5 BUN 13 Creatinine 0.93 Estim Creat Clear Calc 121.56 Est GFR (MDRD) Af Amer 132 Est GFR (MDRD) Non-Af 109 BUN/Creatinine Ratio 14.0 Glucose 127 H Calcium 9.1 Total Bilirubin 0.20 AST 18 ALT 37 Alkaline Phosphatase 62 Total Protein 7.4 Albumin 3.8 Globulin 3.6 Albumin/Globulin Ratio 1.1 Radiography Diagnostic Testing: Clinical Impression(s) from Imaging Studies Brain CT 05/31/22 19:47 IMPRESSION: No acute intracranial findings. Electronically Signed: Brian Sandoval MD at 20:55 EST Reading Location ID and State: [id number] [facility] Tel , Service support , EKG Initial EKG: Comments: Sinus rhythm with a rate of 111. Normal CO interval. Normal QTc interval. No acute ischemic changes. Other than tachycardia normal EKG. Interpreted by emergency doctor. Discharge Plan Triage Chief Complaint: Neuro S/Sx ED Provider: Ace Newmna Dx/Rx/DC Orders Clinical Impression: Hypertension, Arm paresthesia, right, Anxiety, Tachycardia Instructions: ED Paraesthesias Prescriptions: No Action escitalopram oxalate [Lexapro] 10 mg Tablet 10 mg PO DAILY aspirin 81 mg Tablet,Chewable 81 mg PO BREAKFAST Qty: 30 11RF atorvastatin 20 mg tablet 20 mg PO QHS Qty: 30 1RF Primary Care Provider: Eusebio Galarza Referrals: Eusebio Galarza MD [Primary Care Provider] - Freddie Diallo MD [Non-Staff] - 3-5 Days Disposition Disposition: Home, Self Care NIHSS NIHSS 1a. Level of Consciousness: Alert; keenly responsive 1b. LOC Questions: Answers BOTH questions correctly. 1c. LOC Commands: Performs both tasks correctly. 2. Best Gaze: Normal 3. Visual: No visual loss 4. Facial Palsy: Normal symmetrical movements 5a. Left Arm: No drift; arm holds 90 (or 45) degrees for full 10 seconds 5b. Right Arm: No drift; arm holds 90 (or 45) degrees for full 10 seconds 6a. Left Leg: No drift; leg holds 30-degree position for full 5 seconds 6b. Right Leg: No drift; leg holds 30-degree position for full 5 seconds 7. Limb Ataxia: Absent 8. Sensory: Normal; no sensory loss 9. Best Language: No aphasia; normal 10. Dysarthria: Normal 11. Extinction and Inattention: No abnormality Total: 0
[2022-05-31 19:58] LABS: Absolute Lymphocyte Count 2.58 X10^3/uL (0.83-4.51); Absolute Neutrophil Count 6.8 X10^3/uL (2.0-7.7); Basophil# 0.05 X10^3/uL; Basophil% 0.5 % (0-1); Eosinophil# 0.07 X10^3/uL; Eosinophils% 0.7 % (0-5); Hematocrit 48.8 % (40-54); Hemoglobin 16.4 g/dL (13.0-16.5); Lymphocyte # 2.58 X10^3/ul (0.83-4.51); Lymphocyte % 25.4 % (19-41); Mean Corp Hgb Conc 33.6 g/dL (32-36); Mean Corpuscular Hgb 29.3 pg (27.0-32.0); Mean Corpuscular Volume 87.3 fL (80-94); Mean Platelet Vol. 9.2 fl (6.2-12.0); Monocyte% 6.9 % (0-10); NRBC Flagged by Analyzer 0 % (0-5); Neutrophil # 6.75 X10^3/uL (2.7-7.7); Neutrophil % 66.3 % (47-70); Platelet Count 305 K/mm3 (150-450); RBC Distribution Width SD 41.6 fl (35.1-43.9); Red Blood Count 5.59 M/mm3 (4.6-6.2); White Blood Count 10.2 K/mm3 (4.4-11.0)
[2022-05-31 20:16] LABS: ALB/GLOB Ratio 1.1 RATIO (0.9-2.4); AST(SGOT) 18 U/L (15-37); Alanine Aminotransfer ALT/SGPT 37 U/L (16-61); Albumin, Serum 3.8 g/dL (3.2-5.0); Alkaline Phosphatase 62 U/L (45-117); Anion Gap 5 (5-15); BUN 13 mg/dL (7-18); Calcium,Total 9.1 mg/dL (8.5-10.1); Chloride 108 mmol/L (98-107); Creatinine, Serum 0.93 mg/dL (0.70-1.30); EST Glomerular Filtration Rate 109 mL/min (>60); Est Glom Filt Rate - Afr Amer 132 mL/min (>60); Estimated Creatinine Clearance 121.56 ml/min; Globulin 3.6 g/dL (2.2-4.2); Glucose 127 mg/dL (74-106); Potassium 3.5 mmol/L (3.5-5.1); Protein, Total 7.4 g/dL (6.4-8.2); Sodium Level 140 mmol/L (136-145)
[2022-05-31 20:38] VITALS: BP 153/77
[2022-05-31 21:13] VITALS: RESP 12
[2022-05-31 21:15] VITALS: BMI 31.8
== END 2022-05-31 21:16 | disposition home or self-care (01) ==
PROVIDERS: Emergency Provider Emergency Medicine; PCP Family Medicine; Visit Provider Emergency Medicine
DX: I10 Essential (primary) hypertension (principal); R20.2 Paresthesia of skin; F41.9 Anxiety disorder, unspecified; R00.0 Tachycardia, unspecified; F17.290 Nicotine dependence, other tobacco product, uncomplicated; Z79.82 Long term (current) use of aspirin; Z79.899 Other long term (current) drug therapy; Z86.73 Personal history of transient ischemic attack (TIA), and cerebral infarction without residual deficits
CPT/HCPCS: 70450; 80053; 85025; 93005; 99282; A4216

== ENCOUNTER → 2022-08-26 | Outpatient (CLI) | payer OTHER, SELFPAY ==
--- NOTE | 2022-08-26 16:38 | MRI_ITS ---
INDICATION: Upper back pain, numbness EXAMINATION: MRI - MR Spine Thoracic W/O Contrast TECHNIQUE: Multiplanar and multisequence MR images of the thoracic spine. IV Contrast Dosage and Agent: None. COMPARISON: None. FINDINGS: VERTEBRAE: No fracture. Normal vertebral bodies and posterior elements. VERTEBRAL ALIGNMENT: Normal. There is preservation of the normal thoracic kyphosis. No scoliosis. DISCS: Normal disc height and morphology. Normal spinal canal and neuroforamina. CORD: Unremarkable in signal and morphology. Normal conus medullaris. SOFT TISSUES: Unremarkable. MRI/Spine Thoracic (Routine) IMPRESSION: Unremarkable MRI of the thoracic spine. Electronically Signed: Ace Barrios MD at 21:03 EDT ,
--- NOTE | 2022-08-26 16:38 | MRI_ITS ---
INDICATION: Dull upper back and neck pain, numbness right arm, leg. EXAMINATION: MRI - MR Spine Cervical W/O Contrast TECHNIQUE: Multiplanar and multisequence MR images of the cervical spine were performed. IV Contrast Dosage and Agent: None. COMPARISON: None. FINDINGS: VERTEBRAE: Normal vertebral bodies and posterior elements. VERTEBRAL ALIGNMENT: Normal, including the craniocervical junction and cervicothoracic junction. No spondylolisthesis. There is preservation of the normal cervical lordosis. CERVICAL SPINAL CORD: Unremarkable in signal and morphology. C2/C3: Normal disc height and morphology. Normal spinal canal and neuroforamina. C3/C4: Normal disc height and morphology. Uncovertebral hypertrophy with moderate right and mild left neural foraminal stenosis. C4/C5: Mild disc bulge. Normal spinal canal and neuroforamina. C5/C6: Mild disc bulge. Normal spinal canal and neuroforamina. C6/C7: Right paracentral disc protrusion with mild mass effect on the ventral cord. Normal spinal canal and neuroforamina. C7/T1: Normal disc height and morphology. Normal spinal canal and neuroforamina. NECK SOFT TISSUES: No prevertebral soft tissue swelling. There is no cervical adenopathy. MRI/Spine Cervical (Routine) IMPRESSION: Uncovertebral hypertrophy at C3-4 with moderate right and mild left neural foraminal stenosis. Right paracentral disc protrusion with mild mass effect on the ventral cord at C6-7. No abnormal cord signal. Electronically Signed: Ace Barrios MD at 20:46 EDT ,
== END | disposition home or self-care (01) ==
PROVIDERS: PCP Family Medicine; Referring Provider Nurse Practitioner Family; Visit Provider Nurse Practitioner Family
DX: R20.0 Anesthesia of skin (principal)
CPT/HCPCS: 72141; 72146

== ENCOUNTER 2022-09-24 20:17 | Emergency (ER) | payer OTHER, SELFPAY ==
[2022-09-24 20:17] VITALS: BP 151/90; PULSE 110; RESP 18; TEMP 36.5; O2SAT 99; BMI 32.5
[2022-09-24 20:37] LABS: Bacteria 0 SEEN /hpf (None Seen); Mucous, Urine 0 SEEN /hpf (<or=2+); Red Blood Cells-Urine 0 SEEN /hpf (0-5)
[2022-09-24 20:39] LABS: Color, Urine Yellow (Yellow); Glucose, Dipstick Normal (Normal); Ketone-Dipstick 5 mg/dl (Negative); Leukocyte Esterase-Dipstick Negative /ul (Negative); Nitrite-Dipstick Negative (Negative); Occult Blood-Urine Negative /ul (Negative); Protein-Dipstick 30 mg/dl (Negative); Specific Gravity, Urine 1.015 (1.002-1.030); Urine Bilirubin Dipstick Negative (Negative); Urine Clarity Clear (Clear); Urine Urobilinogen 4 mg/dl (Normal)
[2022-09-24 20:52] LABS: Absolute Lymphocyte Count 2.65 X10^3/uL (0.83-4.51); Absolute Neutrophil Count 5.8 X10^3/uL (2.0-7.7); Basophil# 0.05 X10^3/uL; Basophil% 0.5 % (0-1); Eosinophil# 0.09 X10^3/uL; Hematocrit 47.7 % (40-54); Hemoglobin 15.8 g/dL (13.0-16.5); Lymphocyte # 2.65 X10^3/ul (0.83-4.51); Lymphocyte % 28.8 % (19-41); Mean Corp Hgb Conc 33.1 g/dL (32-36); Mean Corpuscular Hgb 29.8 pg (27.0-32.0); Mean Corpuscular Volume 89.8 fL (80-94); Mean Platelet Vol. 9.3 fl (6.2-12.0); Monocyte# 0.64 X10^3/uL; NRBC Flagged by Analyzer 0 % (0-5); Neutrophil # 5.75 X10^3/uL (2.7-7.7); Neutrophil % 62.5 % (47-70); Platelet Count 292 K/mm3 (150-450); RBC Distribution Width CV 12.7 % (11.6-14.6); RBC Distribution Width SD 41.5 fl (35.1-43.9); Red Blood Count 5.31 M/mm3 (4.6-6.2); White Blood Count 9.2 K/mm3 (4.4-11.0)
[2022-09-24 20:54] LABS: Squamous Epithelial Cells - UA 0-5 SEEN /hpf (0-5); White Blood Cells 0-5 SEEN /hpf (0-5)
[2022-09-24 21:10] LABS: AST(SGOT) 25 U/L (15-37); Alanine Aminotransfer ALT/SGPT 34 U/L (16-61); Albumin, Serum 3.7 g/dL (3.2-5.0); Alkaline Phosphatase 61 U/L (45-117); Anion Gap 5 (5-15); BUN 14 mg/dL (7-18); BUN/Creat Ratio 15.5 RATIO (10-20); Chloride 109 mmol/L (98-107); Creatinine, Serum 0.91 mg/dL (0.70-1.30); EST Glomerular Filtration Rate 112 mL/min (>60); Est Glom Filt Rate - Afr Amer 135 mL/min (>60); Estimated Creatinine Clearance 124.23 ml/min; Globulin 3.6 g/dL (2.2-4.2); Glucose 112 mg/dL (74-106); Potassium 4.2 mmol/L (3.5-5.1); Protein, Total 7.3 g/dL (6.4-8.2); Sodium Level 142 mmol/L (136-145)
[2022-09-24] MEDS: Ketorolac 15 MG/ML Vial IV (21:40)
--- NOTE | 2022-09-24 22:25 | RAD_ITS ---
INDICATION: abdominal pain EXAMINATION/TECHNIQUE: X-RAY - supine XR Abdomen 1 View COMPARISON: None FINDINGS: BOWEL GAS PATTERN: No abnormally distended, air-filled bowel loops or air fluid levels. FREE AIR: None exemplified. ORGANOMEGALY: Not seen. CALCIFICATIONS: No abnormal calcifications observed. LOWER CHEST: No acute pathology. BONES AND SOFT TISSUES: No acute pathology. RAD/Abdomen Single View (Portable) IMPRESSION: Non-obstructive bowel gas pattern. Electronically Signed: Pedro Enriquez DO at 22:39 EDT ,
--- NOTE | 2022-09-24 22:55 | EDS_ITS ---
HPI HPI - GI History of Present Illness Chief Complaint: Abd Pain Narrative Narrative: 22-year-old male presenting with lower abdominal cramping across the lower aspect of his abdomen. He states this was about 6 of 10. Is now 5 of 10. He denies constipation, diarrhea, fever, chills, nausea, vomiting. He states he is otherwise healthy. He does not have any urinary complaints. PFSH PFS Medical History Anxiety CVA (cerebral vascular accident) Hypertension Noncompliance with medications Physical exam, pre-employment Tear of tendon of right upper extremity Home Medications aspirin 81 mg chewable tablet 81 mg PO BREAKFAST #30 tabs 12/26/21 [Rx Last Taken Unknown] atorvastatin 20 mg tablet 20 mg PO QHS #30 tabs 12/26/21 [Rx Last Taken Unknown] escitalopram oxalate 10 mg tablet (Lexapro) 10 mg PO DAILY 12/26/21 [History Last Taken 12/23/21] Allergy/AdvReac Type Severity Reaction Status Date / Time No Known Allergies Allergy Verified 09/24/22 20:19 Surgical History History of tonsillectomy and adenoidectomy Social History Smoking Status: Light Smoker (<10/day) substance use type: does not use ROS ROS ED Constitutional Constitutional ED: Denies chills, fever(s) or sweats Eyes Eyes: Denies blurry vision or change in vision ENT ENT ED: Denies ear pain or sore throat Cardiovascular Cardiovascular: Denies chest pain, palpitations or racing heartbeat Respiratory/Chest Respiratory/Chest: Denies cough, dyspnea or sputum Gastrointestinal Gastrointestinal: Denies abdominal pain, constipation, diarrhea, nausea or vomiting Genitourinary Genitourinary ED: Denies dysuria, hematuria or urinary frequency Musculoskeletal Musculoskeletal: Denies arthralgias, myalgias or neck pain Integumentary Denies abscess, Abrasions or rash Neurologic Neurologic: Denies headache(s), paresthesias or weakness Psychiatric Psychiatric: Denies anxiety, depression, suicidal ideation or suicidal thoughts Endocrine Endocrinology: Denies polydipsia or polyuria EXAM Physical Exam Const Vital Signs: 09/24/22 20:17 09/24/22 22:56 Temperature 97.7 F L Temperature Source Temporal Pulse Rate 110 H 62 Respiratory Rate 18 15 Blood Pressure 151/90 H 128/79 H Blood Pressure Mean 110 Pulse Ox 99 99 Oxygen Delivery Method Room Air Positive well nourished General Appearance ED: NAD HEENT Reports moist mucous membranes normocephalic and atraumatic Eyes PERRL and EOMs intact bilaterally Resp normal respiratory effort and clear to auscultation bilaterally Cardio regular rate and regular rhythm GI non-tender, non-distended and no masses Back/Spine no CVA tenderness Neuro CN's II-XII intact bilaterally Sensorium / Orientation: alert, oriented to person, oriented to place and oriented to time Motor Exam: strength 5/5 throughout Psych mental status grossly normal Skin no wounds MDM MDM MDM Narrative Medical decision making narrative: Patient with vague lower abdominal pain which is improving. He describes it as cramping. He states he did have a bowel movement today. He denies diarrhea. No fevers or chills. His exam is benign. CBC and CMP already obtained and showed no sign of leukocytosis, anemia,, cytopenia. CMP is essentially normal. Urinalysis negative for infection. Patient was treated with Toradol and on reevaluation he felt improved. I did obtain a KUB which does not show any obstructive pattern. At this point I recommended follow-up with his PCP to ensure resolution. Return precautions were discussed. Impression: 1. Abdominal pain Lab Data Labs: Laboratory Results - last 24 hr 09/24/22 09/24/22 09/24/22 20:35 20:45 20:45 WBC 9.2 RBC 5.31 Hgb 15.8 Hct 47.7 MCV 89.8 MCH 29.8 MCHC 33.1 RDW Std Deviation 41.5 RDW Coeff of Asya 12.7 Plt Count 292 MPV 9.3 Immature Gran % (Auto) 0.200 Neut % (Auto) 62.5 Lymph % (Auto) 28.8 [place] % (Auto) 7.0 Eos % (Auto) 1.0 Baso % (Auto) 0.5 Absolute Neuts (auto) 5.8 Absolute Lymphs (auto) 2.65 Nucleated RBC % 0 Sodium 142 Potassium 4.2 Chloride 109 H Carbon Dioxide 28.0 Anion Gap 5 BUN 14 Creatinine 0.91 Estim Creat Clear Calc 124.23 Est GFR (MDRD) Af Amer 135 Est GFR (MDRD) Non-Af 112 BUN/Creatinine Ratio 15.5 Glucose 112 H Calcium 9.0 Total Bilirubin 0.20 AST 25 ALT 34 Alkaline Phosphatase 61 Total Protein 7.3 Albumin 3.7 Globulin 3.6 Albumin/Globulin Ratio 1.0 Urine Color Yellow Urine Clarity Clear Urine pH 7.0 Ur Specific [place] 1.015 Urine Protein 30 H Urine Glucose (UA) Normal Urine Ketones 5 H Urine Occult Blood Negative Urine Nitrite Negative Urine Bilirubin Negative Urine Urobilinogen 4 H Ur Leukocyte Esterase Negative Urine RBC 0 SEEN Urine WBC 0-5 SEEN Ur Squamous Epith Cells 0-5 SEEN Urine Bacteria 0 SEEN Urine Mucus 0 SEEN Radiography Diagnostic Testing: Clinical Impression(s) from Imaging Studies KUB X-Ray 09/24/22 22:25 IMPRESSION: Non-obstructive bowel gas pattern. Electronically Signed: Pedro Enriquez DO at 22:39 EDT , Discharge Plan Triage Chief Complaint: Abd Pain ED Provider: Marcos Newton Dx/Rx/DC Orders Instructions: ED Abdominal Pain Unkn Cause Male... Prescriptions: No Action escitalopram oxalate [Lexapro] 10 mg Tablet 10 mg PO DAILY aspirin 81 mg Tablet,Chewable 81 mg PO BREAKFAST Qty: 30 11RF atorvastatin 20 mg tablet 20 mg PO QHS Qty: 30 1RF Primary Care Provider: Eusebio Galarza Referrals: Eusebio Galarza MD [Primary Care Provider] - Disposition Disposition: Home, Self Care Discharge Date/Time: 09/24/22 22:56
[2022-09-24 22:56] VITALS: BP 128/79; PULSE 62; RESP 15; O2SAT 99
== END 2022-09-24 22:56 | disposition home or self-care (01) ==
PROVIDERS: Emergency Provider Student in an Organized Health Care Education/Training Program; PCP Family Medicine; Visit Provider Student in an Organized Health Care Education/Training Program
DX: R10.30 Lower abdominal pain, unspecified (principal); I10 Essential (primary) hypertension; F17.200 Nicotine dependence, unspecified, uncomplicated; Z79.82 Long term (current) use of aspirin; Z79.899 Other long term (current) drug therapy; Z86.73 Personal history of transient ischemic attack (TIA), and cerebral infarction without residual deficits
CPT/HCPCS: 74018; 80053; 81001; 85025; 96374; 99282; A4216

== ENCOUNTER 2022-10-13 00:36 | Emergency (ER) | payer OTHER, SELFPAY ==
[2022-10-13 00:38] VITALS: BP 146/92; PULSE 109; RESP 18; TEMP 36.3; O2SAT 98; BMI 33.7
--- NOTE | 2022-10-13 01:10 | EDS_ITS ---
HPI History of Present Illness Chief Complaint: Eye Problem Narrative Narrative: Patient is a 22-year-old male with past medical history of hypertension. He states that today he noticed increased redness and tearing from bilateral eyes with sensation of itching. He states that there is been no UV light exposure such as prolonged sitting in the sun tanning lights or welding. He denies any trauma and he states that there is no use of contact lenses. He reports he is having difficulty going to sleep secondary to the eye irritation with this comes in for evaluation. [facility] Medical History Anxiety CVA (cerebral vascular accident) Hypertension Noncompliance with medications Physical exam, pre-employment Tear of tendon of right upper extremity Home Medications [id number] 3.5 mg/mL-10,000 unit/mL-0.1% eye drops (Maxitrol) 2 drp EACH EYE 4X/DAY 7 days #5 mL 10/13/22 [Rx Last Taken Unknown] Allergy/AdvReac Type Severity Reaction Status Date / Time No Known Allergies Allergy Verified 10/13/22 00:37 Surgical History History of tonsillectomy and adenoidectomy Social History Smoking Status: Current every day smoker tobacco type: e-cigarettes substance use type: does not use ROS ROS ED Constitutional Constitutional ED: Denies chills or fever(s) Eyes Eyes: Reports other Details: Positive eye redness itching and discharge ; Denies blurry vision or change in vision ENT ENT ED: Denies rhinorrhea or sore throat Cardiovascular Cardiovascular: Denies chest pain Respiratory/Chest Respiratory/Chest: Denies cough or dyspnea Gastrointestinal Gastrointestinal: Denies abdominal pain, diarrhea, nausea or vomiting Genitourinary Genitourinary ED: Denies dysuria Musculoskeletal Musculoskeletal: Denies myalgias Integumentary Denies rash Neurologic Neurologic: Denies headache(s) Hematologic/Lymphatic Hematologic/Lymphatic: Denies easy bleeding or easy bruising EXAM Physical Exam Const Vital Signs: 10/13/22 00:38 Temperature 97.3 F L Temperature Source Temporal Pulse Rate 109 H Respiratory Rate 18 Blood Pressure 146/92 H Blood Pressure Mean 110 Pulse Ox 98 Oxygen Delivery Method Room Air Positive well nourished and well developed General Appearance ED: well developed HEENT Reports moist mucous membranes Eyes PERRL and EOMs intact bilaterally Eyes Narrative: Conjunctival is inflamed and edematous bilaterally. There is scleral injection bilaterally with purulent discharge present as well. The upper lid was everted there is no foreign body. No external or internal hordeolum noted. No light sensitivity. No obvious corneal abrasion or ulcer noted. Neck supple Resp normal respiratory effort and clear to auscultation bilaterally Cardio regular rate and regular rhythm Extremity normal to inspection Neuro oriented x3 and CN's II-XII intact bilaterally Sensorium / Orientation: alert Psych mental status grossly normal Skin no rashes or lesions noted MDM MDM MDM Narrative Medical decision making narrative: Patient presented to the ER hypertensive but does have a past medical history of this and otherwise with stable vitals. He denies wearing contact lens use therefore concern for Pseudomonas is low. He also denies any excessive light exposure going against UV keratitis. As he denies any recent trauma concern for corneal abrasion is low as well. History and exam is most consistent with conjunctivitis. With the purulent discharge there is concern this could be bacterial and therefore he will be started on Maxitrol atomic suspension. Otherwise as he has no signs of systemic infection or internal globe injury he is otherwise safe for discharge History & Record Review Discussion w/independent historian: Patient and Family Discharge Plan Triage Chief Complaint: Eye Problem ED Provider: Cas Gordon Dx/Rx/DC Orders Clinical Impression: Conjunctivitis, Hypertension Instructions: ED Conjunctivitis, Nonspecific Prescriptions: New neomycin-polymyxin B-dexameth [Maxitrol] 3.5mg/mL-10,000 unit/mL-0.1 % drops,suspension 2 drp EACH EYE 4X/DAY 7 Days Qty: 5 1RF Primary Care Provider: Eusebio Galarza Referrals: Eusebio Galarza MD [Primary Care Provider] - Disposition Disposition: Home, Self Care Discharge Date/Time: 10/13/22 01:19
== END 2022-10-13 01:19 | disposition home or self-care (01) ==
PROVIDERS: Emergency Provider Emergency Medicine; PCP Family Medicine; Visit Provider Emergency Medicine
DX: H10.9 Unspecified conjunctivitis (principal); I10 Essential (primary) hypertension; F17.290 Nicotine dependence, other tobacco product, uncomplicated; Z86.73 Personal history of transient ischemic attack (TIA), and cerebral infarction without residual deficits
CPT/HCPCS: 99282

== ENCOUNTER 2022-10-25 02:10 | Emergency (ER) | payer OTHER, SELFPAY ==
[2022-10-25 02:10] VITALS: BP 148/91; PULSE 101; RESP 18; TEMP 36.2; O2SAT 97; BMI 34.0
--- NOTE | 2022-10-25 03:54 | EX.ED.VIS.EY ---
HPI History of Present Illness Chief Complaint: Eye Problem Narrative Narrative: Patient is a 22-year-old male with past medical history of hypertension who was seen in the ER recently secondary to bilateral eye redness and irritation. He was placed on Maxitrol ophthalmic eyedrops for conjunctivitis and reported improvement of symptoms. He states that he does not wear contact lenses and he denies any type of trauma. He reports over the last 1 to 2 days he has had return of redness and irritation to his left eye. He denies any light sensitivity or report of UV exposure. With concern he is developed an infectious process he presents for evaluation [facility] Medical History Anxiety CVA (cerebral vascular accident) Hypertension Noncompliance with medications Physical exam, pre-employment Tear of tendon of right upper extremity Home Medications epinastine 0.05 % eye drops 1 drp EACH EYE BID #5 mL 10/25/22 [Rx Last Taken Unknown] Allergy/AdvReac Type Severity Reaction Status Date / Time No Known Allergies Allergy Verified 10/25/22 02:13 Surgical History History of tonsillectomy and adenoidectomy Social History Smoking Status: Current every day smoker tobacco type: e-cigarettes substance use type: does not use ROS ROS ED Constitutional Constitutional ED: Denies chills or fever(s) Eyes Eyes: Reports other Details: Positive left eye redness/irritation ; Denies blurry vision or change in vision ENT ENT ED: Reports rhinorrhea; Denies sore throat Cardiovascular Cardiovascular: Denies chest pain Respiratory/Chest Respiratory/Chest: Denies cough or dyspnea Gastrointestinal Gastrointestinal: Denies abdominal pain, diarrhea, nausea or vomiting Genitourinary Genitourinary ED: Denies dysuria Musculoskeletal Musculoskeletal: Denies myalgias Integumentary Denies rash Neurologic Neurologic: Denies headache(s) Hematologic/Lymphatic Hematologic/Lymphatic: Denies easy bleeding or easy bruising EXAM Physical Exam Const Vital Signs: 10/25/22 02:10 Temperature 97.1 F L Temperature Source Temporal Pulse Rate 101 H Respiratory Rate 18 Blood Pressure 148/91 H Blood Pressure Mean 110 Pulse Ox 97 Oxygen Delivery Method Room Air Positive well nourished and well developed General Appearance ED: well developed HEENT Reports moist mucous membranes HEENT Narrative: Nasal mucosa is hyperemic and boggy and there is cobblestoning the posterior pharynx consistent with sinus drainage Eyes PERRL and EOMs intact bilaterally Eyes Narrative: There is scleral injection noted to the left eye. The conjunctiva on the left is full and erythematous and irritated as well. There is scant amount of purulent discharge. Upper lid was everted there is no foreign body. Vitale lamp exam shows no uptake of dye to suggest corneal abrasion or dendritic lesions. Neck supple Resp normal respiratory effort and clear to auscultation bilaterally Cardio regular rate and regular rhythm Extremity normal to inspection Neuro oriented x3 and CN's II-XII intact bilaterally Sensorium / Orientation: alert Psych mental status grossly normal Skin no rashes or lesions noted MDM MDM MDM Narrative Medical decision making narrative: Patient presented to the ER hypertensive but does have a history of this. He denied any change in vision trauma UV exposure and therefore my concern for large corneal abrasion versus corneal foreign body versus UV keratitis is low. As the patient reports return of symptoms after stopping the eyedrops there is possibly this is infectious in nature but as it is only located to one eye and he has contaminant nasal congestion and drainage I feel this is most likely allergic conjunctivitis. Therefore he will be placed on Elestat eyedrops and is otherwise safe for discharge as his history and exam do not point to signs of systemic infection corneal injury or foreign body History & Record Review Discussion w/independent historian: Patient and Family Discharge Plan Triage Chief Complaint: Eye Problem ED Provider: Cas Gordon Dx/Rx/DC Orders Clinical Impression: Conjunctivitis, Hypertension Instructions: ED Conjunctivitis, Allergic Prescriptions: New epinastine 0.05 % drops 1 drp EACH EYE BID Qty: 5 3RF Primary Care Provider: Eusebio Galarza Referrals: Eusebio Galarza MD [Primary Care Provider] - Joseph Laura MD [Med Staff - Active Staff] - Activity Restrictions/Additional Instructions: Your exam today does not show a stye or corneal abrasion or retained foreign body. Based on the fact that the redness and irritation returned after stopping the steroidal drops I feel this is most likely allergic reaction in nature. Therefore begin using the new eyedrops daily as directed to help control this and return to the ER should you have any further concerns. Disposition Disposition: Home, Self Care Discharge Date/Time: 10/25/22 04:21
[2022-10-25] MEDS: Fluorescein 1 MG STRIP 1 STRIP LEFT EYE (04:14)
[2022-10-25 04:19] VITALS: BP 140/88; PULSE 81; RESP 16; O2SAT 97
== END 2022-10-25 04:21 | disposition home or self-care (01) ==
PROVIDERS: Emergency Provider Emergency Medicine; PCP Family Medicine; Visit Provider Emergency Medicine
DX: H10.9 Unspecified conjunctivitis (principal); I10 Essential (primary) hypertension; F17.290 Nicotine dependence, other tobacco product, uncomplicated; Z86.73 Personal history of transient ischemic attack (TIA), and cerebral infarction without residual deficits
CPT/HCPCS: 99283

== ENCOUNTER 2022-12-16 14:45 | Emergency (ER) | payer OTHER, SELFPAY ==
[2022-12-16 14:46] VITALS: BP 145/93; PULSE 78; RESP 16; TEMP 36.9; O2SAT 98; BMI 33.4
--- NOTE | 2022-12-16 16:51 | EDS_ITS ---
HPI History of Present Illness Chief Complaint: Eye Problem Informant: patient Narrative Narrative: Patient presents with eye burning. Patient was at work carrying dishes. He accidentally hit a broom handle. The broom handle dropped down and hit a cleaning solution on the ground. The cleaning solution splashed up into both eyes. He had near immediate burning. He rinsed out the eyes extensively and they are doing much better now. He has no blurring of his vision. No pain now. The solution that splashed up was called solution QA ultra. [facility] Medical History Anxiety CVA (cerebral vascular accident) Hypertension Noncompliance with medications Physical exam, pre-employment Tear of tendon of right upper extremity Home Medications epinastine 0.05 % eye drops 1 drp EACH EYE BID #5 mL 10/25/22 [Rx Last Taken Unknown] Allergy/AdvReac Type Severity Reaction Status Date / Time No Known Allergies Allergy Verified 12/16/22 14:49 Surgical History History of tonsillectomy and adenoidectomy Social History Smoking Status: Current every day smoker tobacco type: e-cigarettes substance use type: does not use ROS ROS ED Constitutional Constitutional ED: Denies chills Eyes Eyes: Reports other Details: See history of present illness. His symptoms are now really resolved. ENT ENT ED: Denies ear pain, rhinorrhea or sore throat Respiratory/Chest Respiratory/Chest: Denies cough Gastrointestinal Gastrointestinal: Denies nausea or vomiting Integumentary Denies rash Neurologic Neurologic: Denies headache(s) Hematologic/Lymphatic Hematologic/Lymphatic: Denies easy bleeding or easy bruising EXAM Physical Exam Narrative Exam Narrative: Patient awake alert no acute distress. I watched him walk back to the bathroom without difficulty. Carries on normal conversation. HEENT shows no sign of redness or rash or injury or trauma. Oropharynx is normal. Eyes: There is actually no erythema. I was surprised there is no injection. There is no abnormal tearing. Pupillary response is normal. Range of motion is normal and without pain. No afferent pupillary defect. The exam is actually quite normal. Neck is supple. Lungs are clear bilaterally. Heart is regular. Extremities show no injury or sign of rash. Const Vital Signs: 12/16/22 14:46 Temperature 98.4 F Temperature Source Temporal Pulse Rate 78 Respiratory Rate 16 Blood Pressure 145/93 H Blood Pressure Mean 110 Pulse Ox 98 Oxygen Delivery Method Room Air MDM MDM MDM Narrative Medical decision making narrative: I obtained pH paper. I checked the pH of both eyes. They are both right at 7.4. I did look up the chemicals that was splashed in his eye. It has a pH of 7.2. His symptoms are essentially resolved. I do not think he needs any further treatment. I do not think blood work or imaging is appropriate. We discussed protecting the eyes with UV sunglasses for day or so. We discussed reasons to return. Discharge Plan Triage Chief Complaint: Eye Problem ED Provider: Lan Bartholomew Dx/Rx/DC Orders Clinical Impression: Acute chemical conjunctivitis of both eyes Instructions: Conjunctivitis Caused by Irritation Prescriptions: No Action epinastine 0.05 % drops 1 drp EACH EYE BID Qty: 5 3RF Primary Care Provider: Eusebio Galarza Referrals: Eusebio Galarza MD [Primary Care Provider] - Dario Roger MD [Med Staff - Active Staff] - 1-2 Days if not improving Disposition Disposition: Home, Self Care
== END 2022-12-16 17:45 | disposition home or self-care (01) ==
PROVIDERS: Emergency Provider Emergency Medicine; PCP Family Medicine; Visit Provider Emergency Medicine
DX: T65.891A Toxic effect of other specified substances, accidental (unintentional), initial encounter (principal); H10.213 Acute toxic conjunctivitis, bilateral; F17.290 Nicotine dependence, other tobacco product, uncomplicated
CPT/HCPCS: 99283

== ENCOUNTER 2023-01-02 20:01 | Emergency (ER) | payer OTHER, SELFPAY ==
[2023-01-02 20:02] VITALS: BP 130/94; PULSE 120; RESP 16; TEMP 36.3; O2SAT 99; BMI 33.7
--- NOTE | 2023-01-02 20:10 | EDS_ITS ---
HPI <BEVERLY Man - Last Filed: 01/02/23 21:32> History of Present Illness Chief Complaint: Upper Extremity Injury Narrative Narrative: Patient presenting today with an injury to his right hand that he got while he was punching a punching machine at the [facility] [place] and accidentally missed the punching bag and hit the machine with his right hand. He reports pain to the second and third MCPs. He denies any other injury. PFSH <BEVERLY Man - Last Filed: 01/02/23 21:32> PFSH Medical History Anxiety CVA (cerebral vascular accident) Hypertension Noncompliance with medications Physical exam, pre-employment Tear of tendon of right upper extremity Home Medications epinastine 0.05 % eye drops 1 drp EACH EYE BID #5 mL 10/25/22 [Rx Last Taken Unknown] Allergy/AdvReac Type Severity Reaction Status Date / Time No Known Allergies Allergy Verified 01/02/23 20:03 Surgical History History of tonsillectomy and adenoidectomy Social History Smoking Status: Current every day smoker tobacco type: e-cigarettes substance use type: does not use ROS <BEVERLY Man - Last Filed: 01/02/23 21:32> ROS ED Constitutional Constitutional ED: Denies chills or fever(s) Cardiovascular Cardiovascular: Denies chest pain Respiratory/Chest Respiratory/Chest: Denies cough or dyspnea Gastrointestinal Gastrointestinal: Denies abdominal pain, nausea or vomiting Musculoskeletal Musculoskeletal: Reports arthralgias Integumentary Denies Abrasions Neurologic Neurologic: Denies paresthesias or weakness EXAM <BEVERLY Man - Last Filed: 01/02/23 21:32> Physical Exam Const Vital Signs: 01/02/23 20:02 Temperature 97.4 F L Temperature Source Temporal Pulse Rate 120 H Respiratory Rate 16 Blood Pressure 130/94 H Blood Pressure Mean 106 Pulse Ox 99 Oxygen Delivery Method Room Air Positive well nourished, well developed and no apparent distress General Appearance ED: well developed HEENT Reports normocephalic and head/scalp atraumatic Mouth ED: Yes moist mucous membranes normal Eyes PERRL and EOMs intact bilaterally Neck full ROM and supple Chest Wall inspection of chest normal Resp normal respiratory effort and clear to auscultation bilaterally Cardio regular rate and regular rhythm GI soft to palpation, non-tender, non-distended and no masses Back/Spine normal ROM and normal to inspection Extremity normal to inspection and full ROM Extremity Narrative: Edema to the second MCP of the right hand with pain to the second and third MCPs. Full flexion and extension at the MCP, PIP, and DIP joints of the right hand. Radial pulse 2+ and equal bilaterally, good capillary refill, sensation intact. Neuro oriented x3, CN's II-XII intact bilaterally, moves all extremities, no focal motor deficits and no sensory deficits noted Sensorium / Orientation: awake and alert Psych mental status grossly normal and thought process normal Skin no rashes or lesions noted and no wounds [facility] <BEVERLY Man - Last Filed: 01/02/23 21:32> [facility] Narrative Medical decision making narrative: Patient presenting today with pain to his right hand. He was using a punching machine at the [facility] and accidentally missed the punching bag and hit the machine instead. He has pain to his second and third MCP joints, mainly to the second. There is slight edema and ecchymosis to the area. X-ray will be obtained to rule out fracture and is negative. Patient was given Tylenol here f or his pain. He will be given RICE instructions. He will be discharged home in stable condition and is comfortable with plan. <Dr. Lan Bartholomew MD - Last Filed: 01/02/23 20:53> [facility] Treatment and Re-Evaluation Narrative: I have personally performed a face to face assessment of the patient and have reviewed the AKILAH Note. I performed a substantive portion of the visit including all aspects of the following. My fajardo findings include: History: Patient accidentally punched the machine of a punching game. He hit this with his dominant hand. He has pain over the second and third distal metacarpal area. No other areas of injury. He never hit a human mouth. There is no break in the skin. Exam: Contusions but no abrasions in the area of discomfort. Mild swelling but no deformity. No distal numbness tingling. Capillary refill is normal. No wrist tenderness or snuffbox tenderness. Medical Decision Making: My independent interpretation of the patient's three- view x-ray of the right hand shows no sign of acute fracture or dislocation and final reading is similar. Discharge Plan Triage Chief Complaint: Upper Extremity Injury ED Midlevel Provider: Lesa Chairez ED Provider: Lan Bartholomew Dx/Rx/DC Orders Clinical Impression: Contusion of hand, right Instructions: ED Hand Contusion Prescriptions: No Action epinastine 0.05 % drops 1 drp EACH EYE BID Qty: 5 3RF Primary Care Provider: Eusebio Galarza Referrals: Eusebio Galarza MD [Primary Care Provider] - 1 Week if not improving Activity Restrictions/Additional Instructions: If you do not have any improvement of your symptoms in 1 to 2 weeks please follow-up with your PCP. Ice the area several times a day for the next few days, you can take Tylenol for your pain as needed. Disposition Disposition: Home, Self Care Discharge Date/Time: 01/02/23 20:51
[2023-01-02] MEDS: Acetaminophen 325 MG Tablet 650 MG PO (20:16)
--- NOTE | 2023-01-02 20:20 | RAD_ITS ---
STUDY: X-RAY - RIGHT HAND REASON FOR EXAM: Male, 22 years old. Punching injury, pain TECHNIQUE: 3 view(s) of the hand. COMPARISON: None. FINDINGS: Normal radiocarpal articulation. Normal distal radioulnar joint. Normal visualized carpal bones. Normal carpal articulations Normal carpometacarpal articulation of the thumb. Normal second through fifth carpometacarpal joints. Normal metacarpi. Normal metacarpophalangeal joint of the thumb. Normal interphalangeal joint of the thumb. Normal proximal and distal phalanges of the thumb. Normal metacarpophalangeal joints of the second through fifth fingers. Normal proximal and distal interphalangeal joints of the second through fifth fingers. Normal phalanges of the second through fifth fingers. The soft tissue structures are unremarkable. RAD/Hand Min 3 Views IMPRESSION: Normal x-ray examination of the hand. Electronically Signed: Randal Berg (Brooks), at 20:30 EDT ,
== END 2023-01-02 20:51 | disposition home or self-care (01) ==
PROVIDERS: Emergency Provider Emergency Medicine; PCP Family Medicine; Visit Provider Emergency Medicine
DX: S60.221A Contusion of right hand, initial encounter (principal); W22.09XA Striking against other stationary object, initial encounter; Y93.89 Activity, other specified; Y99.8 Other external cause status; Y92.39 Other specified sports and athletic area as the place of occurrence of the external cause; F17.210 Nicotine dependence, cigarettes, uncomplicated
CPT/HCPCS: 73130; 99283

== ENCOUNTER 2023-01-21 23:14 | Emergency (ER) | payer OTHER, SELFPAY ==
[2023-01-21 23:14] VITALS: BP 142/84; PULSE 98; RESP 18; TEMP 36.6; O2SAT 99; BMI 33.5
--- NOTE | 2023-01-22 00:04 | EDS_ITS ---
HPI History of Present Illness Chief Complaint: Cold Sx Informant: patient Narrative Narrative: Patient presents concern for COVID. Evidently somebody at work is COVID. He has not been having symptoms. But he went to bed this evening. About an hour later he woke up. He states he had a metallic bad taste in his mouth. He was coughing. He thought he was having trouble breathing. He states is all better now. I also find out that he is changed his diet recently. He has been eating a lot of fruits and vegetables and even tomato sauces. But he did just have some [employer] earlier which he has been trying to avoid. He has not had fevers or chills. No myalgias. He states sometimes her his bowel movements are soft but that is with his diet change. No blood. He has had no wheezing. No pains in his chest. He feels overall normal at this time. [facility] Medical History Anxiety CVA (cerebral vascular accident) Hypertension Noncompliance with medications Physical exam, pre-employment Tear of tendon of right upper extremity Home Medications epinastine 0.05 % eye drops 1 drp EACH EYE BID #5 mL 10/25/22 [Rx Last Taken Unknown] Allergy/AdvReac Type Severity Reaction Status Date / Time No Known Allergies Allergy Verified 01/21/23 23:17 Surgical History History of tonsillectomy and adenoidectomy Social History Smoking Status: Current every day smoker tobacco type: e-cigarettes substance use type: does not use ROS ROS ED ROS Narrative A complete review of systems was performed and is negative except as documented in the history of present illness. Some specific details below. Constitutional: No recent fevers or chills. No malaise or myalgias. EYE: No discharge, visual complaints, or pain. ENT: He did have an acid and metallic taste in his mouth when he woke up but it is gone now. No change in voice. CV: When he first woke up he had palpitations but those resolved. Respiratory: Coughing when he woke up but it is normal now. He does not feel short of breath. No wheezing was heard. GI: No abdominal pain. No nausea vomiting but he has had some mildly softer stools but no actual diarrhea. No blood in stool. : No frequency dysuria or hematuria. Musculoskeletal: No recent trauma. No pains. No swelling. Skin: No rash. Nondiaphoretic. Neuro: No weakness or numbness. Endocrine: No polyuria or polydipsia. EXAM Physical Exam Narrative Exam Narrative: CONSTITUTIONAL: Patient is nontoxic in appearance. The patient looks comfortable. Work of breathing looks normal. HEENT: No notable trauma. Mucous membranes moist. No sinus tenderness. No indication of pain with swallowing. EYES: No conjunctival injection. No proptosis. NECK:No JVD. No stridor. CARDIOVASCULAR: Regular rate. Regular rhythm. No notable murmur. No JVD. RESPIRATORY: No respiratory distress. Breathing is unlabored. No wheezes. No rhonchi. No rales. No pain with a deep breath. No chest wall tenderness. GASTROINTESTINAL: Not distended. Bowel sounds are normal. No tenderness. GENITOURINARY: No tenderness over the bladder. No CVA tenderness. MUSCULOSKELETAL: Atraumatic. No peripheral edema. No cord. No tenderness along the deep venous system. No asymmetry. No distended veins. NEUROLOGICAL: Patient is alert and appropriate. SKIN: No noted rashes. No diaphoresis. PSYCHIATRIC: Patient is calm. Mood is appropriate. Const Vital Signs: 01/21/23 23:14 01/21/23 23:14 Temperature 97.9 F Temperature Source Temporal Pulse Rate 98 Respiratory Rate 18 Respiratory Effort Normal Non-Labored Respiratory Pattern Normal Blood Pressure 142/84 H Blood Pressure Mean 103 Pulse Ox 99 Oxygen Delivery Method Room Air MDM MDM MDM Narrative Medical decision making narrative: Patient was concerned about COVID. But his symptoms sound very much like reflux. He has had a diet change recently. He woke up with symptoms but then they resolved within a matter of minutes. Certainly sleep apnea could do this. But he had a sour acid taste in his mouth with it. I think this was most likely reflux. We discussed diet as well as [id number] meds. But I do not think he requires x-ray or EKG. His heart rate is normal. His oxygen level is normal. His exam is normal. He is asymptomatic now completely. Discharge Plan Triage Chief Complaint: Cold Sx ED Provider: Lan Bartholomew Dx/Rx/DC Orders Clinical Impression: Close exposure to 2019-nCoV, Gastroesophageal reflux disease Instructions: ED GERD (Adult) Prescriptions: No Action epinastine 0.05 % drops 1 drp EACH EYE BID Qty: 5 3RF Primary Care Provider: Eusebio Galarza Referrals: Eusebio Galarza MD [Primary Care Provider] - 3-5 Days Disposition Disposition: Home, Self Care
[2023-01-22 00:09] VITALS: PULSE 75; RESP 17; O2SAT 99
== END 2023-01-22 00:19 | disposition home or self-care (01) ==
PROVIDERS: Emergency Provider Emergency Medicine; PCP Family Medicine; Visit Provider Emergency Medicine
DX: Z20.828 Contact with and (suspected) exposure to other viral communicable diseases (principal); K21.9 Gastro-esophageal reflux disease without esophagitis; F17.290 Nicotine dependence, other tobacco product, uncomplicated; Z86.73 Personal history of transient ischemic attack (TIA), and cerebral infarction without residual deficits
CPT/HCPCS: 87811; 99282

== ENCOUNTER 2023-03-23 18:53 | Emergency (ER) | payer OTHER, SELFPAY ==
[2023-03-23 18:54] VITALS: BP 140/92; PULSE 96; RESP 18; TEMP 36.3; O2SAT 100; BMI 33.9
--- NOTE | 2023-03-23 19:06 | EKG12_ITS ---
Test Reason : PALPITATIONS Blood Pressure : / mmHG Vent. Rate : 109 BPM Atrial Rate : 109 BPM P-R Int : 150 ms QRS Dur : 090 ms QT Int : 296 ms P-R-T Axes : 036 051 -34 degrees QTc Int : 398 ms Sinus tachycardia Possible Inferior infarct , age undetermined Abnormal ECG Confirmed by YUSUF PITTMAN, LUIS ([id number]), index editor YAMILA THAYER ([id number]) on 03/29/2023 10:42:45 AM Referred By: ALESSANDRA Confirmed By:KAYODE GOLDBERG MD
--- NOTE | 2023-03-23 19:07 | EX.ED.DYSGE1 ---
HPI <BEVERLY Kerr - Last Filed: 03/23/23 20:34> History of Present Illness Chief Complaint: Palpitations Narrative Narrative: 22-year-old male presents with palpitations that started around 5:30 PM while he was working at [employer]. His heart felt like it was pounding. He got off work and states the cold air and drinking water seem to help but it still present. He is also having burning pain in his throat which he thinks might be his acid reflux. He used to be on medication for this but does not take anything presently. He denies chest pain or shortness of breath. No nausea or vomiting. He states he quit caffeine about a week ago and vapes nicotine. PFSH <BEVERLY Kerr Last Filed: 03/23/23 20:34> [facility] Medical History Anxiety CVA (cerebral vascular accident) Hypertension Noncompliance with medications Physical exam, pre-employment Tear of tendon of right upper extremity Home Medications omeprazole 20 mg capsule,delayed release 20 mg PO DAILY #30 CAPSULES 03/23/23 [Rx Last Taken Unknown] Allergy/AdvReac Type Severity Reaction Status Date / Time No Known Allergies Allergy Verified 03/23/23 19:26 Surgical History History of tonsillectomy and adenoidectomy Social History Smoking Status: Current every day smoker tobacco type: e-cigarettes substance use type: does not use ROS <BEVERLY Kerr Last Filed: 03/23/23 20:34> ROS ED ROS Narrative Constitutional: Negative for fever, chills, malaise. CVS: Positive for palpitations. Negative for chest pain, syncope. Respiratory: Negative for shortness of breath, cough. GI: Negative for abdominal pain, nausea, vomiting. EXAM <BEVERLY Kerr - Last Filed: 03/23/23 20:34> Physical Exam Narrative Exam Narrative: CONST: Patient sitting in no acute distress. EYES: Normal inspection. NECK: Normal inspection. RESP: No respiratory distress, CTAB. CVS: Tachycardic around 105 bpm with regular rhythm, no murmur, no gallop. ABD: Soft and nontender, no guarding or rebound, nondistended. SKIN: Color normal, no rash, warm, dry, intact. EXTREMITIES: Normal appearance, no pedal edema. NEURO: Oriented x4. PSYCH: Normal affect. Const Vital Signs: 03/23/23 18:54 03/23/23 20:34 Temperature 97.3 F L 97 F L Temperature Source Temporal Pulse Rate 96 81 Respiratory Rate 18 16 Blood Pressure 140/92 H 128/76 H Blood Pressure Mean 108 93 Pulse Ox 100 99 Oxygen Delivery Method Room Air <Dr. Marcos Newton DO - Last Filed: 03/23/23 21:02> Physical Exam Const Vital Signs: 03/23/23 18:54 03/23/23 20:34 Temperature 97.3 F L 97 F L Temperature Source Temporal Pulse Rate 96 81 Respiratory Rate 18 16 Blood Pressure 140/92 H 128/76 H Blood Pressure Mean 108 93 Pulse Ox 100 99 Oxygen Delivery Method Room Air MDM <BEVERLY Kerr - Last Filed: 03/23/23 20:34> MDM MDM Narrative Medical decision making narrative: History gathered from: Patient and parent Patient is having palpitations and also a burning acid reflux sensation in his throat. He appears well and nontoxic. Vital signs stable. On exam he is slightly tachycardic around 105 bpm regular rhythm and no murmurs. Exam is otherwise unremarkable. Bedside telemetry shows sinus tachycardia which was confirmed on EKG. CBC, BMP, troponin are all unremarkable. He does not have chest pain/shortness of breath and no risk factors for DVT/PE so I did not order D-dimer. He was given IV fluids and Pepcid for his GI symptoms and feels improved. I recommended follow-up with his primary care for palpitations and prescribed omeprazole for GERD. He was discharged in stable condition. Lab Data Attestation: I reviewed the patient's lab results. Labs: Laboratory Results - last 24 hr 03/23/23 19:30 WBC 7.4 RBC 5.12 Hgb 14.8 Hct 45.4 MCV 88.7 MCH 28.9 MCHC 32.6 RDW Std Deviation 41.3 RDW Coeff of Asya 12.7 Plt Count 294 MPV 9.6 Immature Gran % (Auto) 0.300 Neut % (Auto) 57.8 Lymph % (Auto) 30.9 [place] % (Auto) 10.0 Eos % (Auto) 0.7 Baso % (Auto) 0.3 Absolute Neuts (auto) 4.3 Absolute Lymphs (auto) 2.28 Nucleated RBC % 0 Sodium 141 Potassium 3.4 L Chloride 108 H Carbon Dioxide 28.0 Anion Gap 5 BUN 16 Creatinine 0.86 Estim Creat Clear Calc 131.45 Est GFR (MDRD) Af Amer 144 Est GFR (MDRD) Non-Af 119 BUN/Creatinine Ratio 18.7 Glucose 109 H Calcium 9.1 Troponin I High Sens 4 EKG Initial EKG: Attestation: I personally reviewed and interpreted this EKG as follows: Interpretation: Sinus Tachycardia Comments: Sinus tachycardia at 109 bpm, normal intervals, no STEMI criteria <Dr. Marcos Newton, DO - Last Filed: 03/23/23 21:02> [facility] MDM Narrative Medical decision making narrative: History gathered from: Patient and parent Patient is having palpitations and also a burning acid reflux sensation in his throat. He appears well and nontoxic. Vital signs stable. On exam he is slightly tachycardic around 105 bpm regular rhythm and no murmurs. Exam is otherwise unremarkable. Bedside telemetry shows sinus tachycardia which was confirmed on EKG. CBC, BMP, troponin are all unremarkable. He does not have chest pain/shortness of breath and no risk factors for DVT/PE so I did not order D-dimer. He was given IV fluids and Pepcid for his GI symptoms and feels improved. I recommended follow-up with his primary care for palpitations and prescribed omeprazole for GERD. He was discharged in stable condition. This patient was seen with a PA/SCREEN PRINTING MACHINE LOADER UNLOADER Individually assessed they patient including history and physical. I have reviewed everything on the chart that is available and agree with the documentation provided by the PA/SCREEN PRINTING MACHINE LOADER UNLOADER including discussion about the assessment, treatment plan, discussion, and return precautions. Patient presenting with acid reflux symptoms and palpitations. Work-up is ultimately normal. He is young and otherwise healthy and I do not suspect cardiac etiology. I do not believe needs a delta troponin. He is PERC negative. Patient treated with Pepcid. Offered GI cocktail but he refuses. Patient discharged home in stable condition. Impression: 1. GERD 2. Palpitation Lab Data Labs: Laboratory Results - last 24 hr 03/23/23 19:30 WBC 7.4 RBC 5.12 Hgb 14.8 Hct 45.4 MCV 88.7 MCH 28.9 MCHC 32.6 RDW Std Deviation 41.3 RDW Coeff of Asya 12.7 Plt Count 294 MPV 9.6 Immature Gran % (Auto) 0.300 Neut % (Auto) 57.8 Lymph % (Auto) 30.9 [place] % (Auto) 10.0 Eos % (Auto) 0.7 Baso % (Auto) 0.3 Absolute Neuts (auto) 4.3 Absolute Lymphs (auto) 2.28 Nucleated RBC % 0 Sodium 141 Potassium 3.4 L Chloride 108 H Carbon Dioxide 28.0 Anion Gap 5 BUN 16 Creatinine 0.86 Estim Creat Clear Calc 131.45 Est GFR (MDRD) Af Amer 144 Est GFR (MDRD) Non-Af 119 BUN/Creatinine Ratio 18.7 Glucose 109 H Calcium 9.1 Troponin I High Sens 4 Discharge Plan Triage Chief Complaint: Palpitations ED Midlevel Provider: Marilu Chavez ED Provider: Marcos Newton Dx/Rx/DC Orders Clinical Impression: Heart palpitations, Gastroesophageal reflux disease Instructions: ED GERD (Adult), ED Palpitations Prescriptions: New omeprazole 20 mg capsule,delayed release(DR/EC) 20 mg PO DAILY Qty: 30 0RF Primary Care Provider: Eusebio Galarza Referrals: Eusebio Galarza MD [Primary Care Provider] - Activity Restrictions/Additional Instructions: Your heart is in a normal rhythm and your lab work looks normal. These palpitations are harmless but I recommend following up with primary care doctor or returning if you develop chest pain or shortness of breath. I also prescribed omeprazole for your GERD. Disposition Disposition: Home, Self Care Discharge Date/Time: 03/23/23 20:35
[2023-03-23] MEDS: 0.9% Normal Saline (1000mL) 1,000 ML 999 ML IV (19:30)
[2023-03-23] MEDS: Famotidine 20 MG Tablet PO (19:31)
[2023-03-23 19:44] LABS: Absolute Lymphocyte Count 2.28 X10^3/uL (0.83-4.51); Absolute Neutrophil Count 4.3 X10^3/uL (2.0-7.7); Basophil# 0.02 X10^3/uL; Basophil% 0.3 % (0-1); Eosinophil# 0.05 X10^3/uL; Eosinophils% 0.7 % (0-5); Hematocrit 45.4 % (40-54); Hemoglobin 14.8 g/dL (13.0-16.5); Lymphocyte # 2.28 X10^3/ul (0.83-4.51); Lymphocyte % 30.9 % (19-41); Mean Corp Hgb Conc 32.6 g/dL (32-36); Mean Corpuscular Hgb 28.9 pg (27.0-32.0); Mean Corpuscular Volume 88.7 fL (80-94); Mean Platelet Vol. 9.6 fl (6.2-12.0); Monocyte# 0.74 X10^3/uL; NRBC Flagged by Analyzer 0 % (0-5); Neutrophil # 4.27 X10^3/uL (2.7-7.7); Neutrophil % 57.8 % (47-70); Platelet Count 294 K/mm3 (150-450); RBC Distribution Width CV 12.7 % (11.6-14.6); RBC Distribution Width SD 41.3 fl (35.1-43.9); Red Blood Count 5.12 M/mm3 (4.6-6.2); White Blood Count 7.4 K/mm3 (4.4-11.0)
[2023-03-23 20:04] LABS: Anion Gap 5 (5-15); BUN 16 mg/dL (7-18); BUN/Creat Ratio 18.7 RATIO (10-20); Calcium,Total 9.1 mg/dL (8.5-10.1); Chloride 108 mmol/L (98-107); Creatinine, Serum 0.86 mg/dL (0.70-1.30); EST Glomerular Filtration Rate 119 mL/min (>60); Est Glom Filt Rate - Afr Amer 144 mL/min (>60); Estimated Creatinine Clearance 131.45 ml/min; Glucose 109 mg/dL (74-106); Potassium 3.4 mmol/L (3.5-5.1); Sodium Level 141 mmol/L (136-145); Troponin-I HS 4 pg/mL (3.0-78.0)
[2023-03-23 20:34] VITALS: BP 128/76; PULSE 81; RESP 16; TEMP 36.1; O2SAT 99
== END 2023-03-23 20:35 | disposition home or self-care (01) ==
PROVIDERS: Physician Assistant; Emergency Provider Student in an Organized Health Care Education/Training Program; PCP Family Medicine; Visit Provider Student in an Organized Health Care Education/Training Program
DX: R00.2 Palpitations (principal); K21.9 Gastro-esophageal reflux disease without esophagitis; F17.290 Nicotine dependence, other tobacco product, uncomplicated; Z86.73 Personal history of transient ischemic attack (TIA), and cerebral infarction without residual deficits
CPT/HCPCS: 80048; 84484; 85025; 93005; 96360; 99283; J7030

== ENCOUNTER 2023-04-21 18:26 | Emergency (ER) | payer OTHER, SELFPAY ==
[2023-04-21 18:27] VITALS: BP 148/102; PULSE 124; RESP 20; TEMP 36.6; O2SAT 99; BMI 34.0
--- NOTE | 2023-04-21 18:45 | EDS_ITS ---
HPI History of Present Illness Chief Complaint: Upper Extremity Injury Narrative Narrative: 23-year-old male past medical history of hypertension, not currently on medication, presents with left arm pain and pain in his left biceps that he experienced 45 minutes ago. 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 He states he began having pain in his left biceps deep within, and stated he had to step away from the line. He then began having heart palpitations. He was not sure if his anxiety was setting in. He denies any chest pain or shortness of breath, no nausea or vomiting, no family history of early coronary artery disease or sudden . No DVT or PE risk factors. He states that his arm pain is improving, but he presents via EMS with anginal type symptoms. [facility] Medical History Anxiety CVA (cerebral vascular accident) Hypertension Noncompliance with medications Physical exam, pre-employment Tear of tendon of right upper extremity Home Medications omeprazole 20 mg capsule,delayed release 20 mg PO DAILY #30 CAPSULES 03/23/23 [Rx Last Taken Unknown] Allergy/AdvReac Type Severity Reaction Status Date / Time No Known Allergies Allergy Verified 04/21/23 18:27 Family History no significant family his no significant family history Surgical History History of tonsillectomy and adenoidectomy Social History Smoking Status: Current every day smoker tobacco type: e-cigarettes substance use type: does not use ROS ROS ED ROS Narrative Constitutional: No fever, no chills. HEENT: No sore throat. No neck pain. No loss of vision. No rhinorrhea. Cardiovascular: No chest pain. Positive palpitations. No pedal edema. Respiratory: No cough, no shortness of breath. Abdominal: No abdominal pain. No nausea. No vomiting. Genitourinary: No dysuria. No hematuria. Musculoskeletal: Left upper arm pain deep within the biceps. No arthralgias. Neurologic: No headaches. No dizziness. No lightheadedness. Skin: No rash. No change in color. Psychiatric: No depression. No anxiety. EXAM Physical Exam Narrative Exam Narrative: Afebrile. Vital signs noted. HEENT: Normocephalic. Atraumatic. PERRL, EOMI. Neck soft and supple. No point tenderness or step off. Cardiovascular: Mild tachycardia. No murmurs, rubs, or gallops appreciated. Respiratory: No tachypnea. Lungs clear to auscultation bilaterally. Gastrointestinal: Abdomen soft, nontender, with normoactive bowel sounds. No rebound or guarding. Neurological: Awake. Alert. Nonfocal, nonlateralizing. Skin: No rash. Normal color. No pallor. Musculoskeletal: No pedal edema. Full range of motion extremities. Full range of motion of left shoulder. Flexion extension left biceps intact. Palpable radial pulse bilaterally. Const Vital Signs: 04/21/23 18:27 Temperature 98 F Temperature Source Temporal Pulse Rate 124 H Respiratory Rate 20 H Blood Pressure 148/102 H Blood Pressure Mean 117 Pulse Ox 99 Oxygen Delivery Method Room Air MDM MDM MDM Narrative Medical decision making narrative: In the differential diagnosis is acute coronary syndrome versus pulmonary embolism versus pneumonia versus pneumothorax. Also in the differential is muscular pain as he has repeated use. The history and physical does not necessarily support pulmonary embolism or pneumonia as he has not had fever, cough, or shortness of breath. Comprehensive work-up will be pursued. He will be placed on the telemetry monitor. His pulse ox is 99% on room air. EKG was obtained and interpreted by myself independently as sinus tachycardia at 108 bpm without ectopy or acute ST changes. No STEMI. I reviewed his laboratory work and his CBC is grossly unremarkable with a normal WBC count normal hemoglobin. BMP is also grossly unremarkable except for a low anion gap of 4. Initial high-sensitivity troponin is 4. Repeat is currently pending. Chest x-ray in 1 view interpreted by myself shows no evidence of an acute process, no pneumothorax, no pneumonia. D-dimer was also obtained and is negative at less than 0.27. Slight is a second troponin is within the allowable delta troponin, I do feel that he could be discharged to follow-up with his primary care provider. Additionally, I was approached by the RN who stated that while the patient is depressed, but not suicidal, he would like follow-up for his depression. He will be referred to the counseling center and to the local psychiatrist for follow-up. I reviewed his second troponin is 5 which is an acceptable delta troponin. At this point in time, I do not feel that his arm pain is an anginal equivalent. I feel he can be discharged safely home with follow-up. Return instructions to the emergency department were reviewed. Disposition is discharged home in stable condition. History & Record Review Discussion w/independent historian: Patient Additional record(s) reviewed:: Prior ED visit and Prior labs Lab Data Attestation: I reviewed the patient's lab results. Discharge Plan Triage Chief Complaint: Upper Extremity Injury ED Provider: Figueroa Narvaez Dx/Rx/DC Orders Clinical Impression: Depression, Left arm pain Instructions: ED Depression, ED Myalgias, ED Pain, Acute, Uncertain Cause Prescriptions: No Action omeprazole 20 mg capsule,delayed release(DR/EC) 20 mg PO DAILY Qty: 30 0RF Primary Care Provider: Eusebio Galarza Referrals: Counseling,Center [Group of Physicians] - As soon as possible Euseboi Galarza MD [Primary Care Provider] - 3-5 Days Lucio Solorio DO [Med Staff - Air And Hydronic Balancing Technician] - As soon as possible Disposition Disposition: Home, Self Care
--- NOTE | 2023-04-21 19:00 | RAD_ITS ---
INDICATION: chest pain EXAMINATION: Frontal view of the chest COMPARISON: Chest x-ray August 19, 2020. FINDINGS: Frontal view of the chest was obtained. The cardiac silhouette is not enlarged. No confluent airspace disease. No pneumothorax. No acute fracture identified. RAD/Chest 1 View (Portable) IMPRESSION: No acute pulmonary disease. Electronically Signed: Kevin Potter MD at 19:55 EST ,
[2023-04-21] MEDS: 0.9% Normal Saline (1000mL) 1,000 ML 1000 ML IV (19:05)
[2023-04-21 19:09] LABS: Absolute Neutrophil Count 5.8 X10^3/uL (2.0-7.7); Basophil# 0.06 X10^3/uL; Basophil% 0.7 % (0-1); Eosinophil# 0.05 X10^3/uL; Eosinophils% 0.6 % (0-5); Hematocrit 47.7 % (40-54); Hemoglobin 15.8 g/dL (13.0-16.5); Lymphocyte % 24.6 % (19-41); Mean Corp Hgb Conc 33.1 g/dL (32-36); Mean Corpuscular Hgb 29.2 pg (27.0-32.0); Mean Corpuscular Volume 88.2 fL (80-94); Mean Platelet Vol. 9.3 fl (6.2-12.0); Monocyte# 0.79 X10^3/uL; Monocyte% 8.8 % (0-10); NRBC Flagged by Analyzer 0 % (0-5); Neutrophil # 5.83 X10^3/uL (2.7-7.7); Platelet Count 312 K/mm3 (150-450); RBC Distribution Width CV 12.7 % (11.6-14.6); Red Blood Count 5.41 M/mm3 (4.6-6.2)
[2023-04-21 19:25] LABS: D-Dimer Quantitative (DVT/PE) < 0.27 FEU/ug/m (0.27-0.49)
[2023-04-21 19:27] LABS: Anion Gap 4 (5-15); BUN 14 mg/dL (7-18); BUN/Creat Ratio 15.4 RATIO (10-20); Chloride 106 mmol/L (98-107); Creatinine, Serum 0.91 mg/dL (0.70-1.30); EST Glomerular Filtration Rate 111 mL/min (>60); Est Glom Filt Rate - Afr Amer 134 mL/min (>60); Estimated Creatinine Clearance 123.19 ml/min; Glucose 88 mg/dL (74-106); Sodium Level 140 mmol/L (136-145); Troponin-I HS (w/2H Reflex) 4 pg/mL (3.0-78.0)
[2023-04-21] MEDS: Aspirin 81 MG TAB.CHEW 324 MG PO (19:32)
[2023-04-21 21:07] LABS: Reflex Troponin-HS? (from REC) Y
[2023-04-21 21:46] LABS: Troponin-I HS 5 pg/mL (3.0-78.0)
== END 2023-04-21 22:08 | disposition home or self-care (01) ==
PROVIDERS: Emergency Provider Emergency Medicine; PCP Family Medicine; Referring Provider Emergency Medicine; Visit Provider Emergency Medicine
DX: F32.A Depression, unspecified (principal); M79.602 Pain in left arm; F17.290 Nicotine dependence, other tobacco product, uncomplicated; Z86.73 Personal history of transient ischemic attack (TIA), and cerebral infarction without residual deficits
CPT/HCPCS: 71045; 80048; 84484; 85025; 85379; 93005; 99285; J7030; A4216

== ENCOUNTER 2023-05-17 19:29 | Emergency (ER) | payer OTHER, SELFPAY ==
[2023-05-17 19:30] VITALS: BP 132/72; PULSE 149; RESP 18; TEMP 35.8; O2SAT 97; BMI 34.1
--- NOTE | 2023-05-17 19:50 | US_ITS ---
EXAM: US ABDOMEN LIMITED, RIGHT UPPER QUADRANT CLINICAL INDICATION: ABD PAIN TECHNIQUE: Real-time ultrasound of the right upper quadrant with image documentation. COMPARISON: No relevant prior studies available. FINDINGS: LIVER: Unremarkable. 13.3 cm in length. Slightly heterogeneous. No focal hepatic lesion. No intrahepatic biliary ductal dilation. Patent main portal vein, normal direction of flow. Patent visualized hepatic veins. GALLBLADDER: Unremarkable. 1.8 cm AP, not significantly distended. No shadowing gallstone. No gallbladder wall thickening is demonstrated. Borderline 3.1 mm measurement at the anterior fundus may be overestimated, it appears normal thickness on the sagittal images. No pericholecystic fluid. Negative sonographic Stuart''s sign. COMMON BILE DUCT: Unremarkable as visualized. 3 mm at the luis. The proximal common bile duct is within normal limits for the patient''s age. PANCREAS: Largely obscured by bowel gas. RIGHT KIDNEY: Unremarkable. 10.3 cm x 4.6 cm x 4.7 cm. There is no hydronephrosis. No shadowing calculus. No focal lesion or perinephric collection is demonstrated. US/Gallbladder IMPRESSION: Unremarkable right upper quadrant ultrasound. Nonvisualized pancreas. Electronically Signed: Kortney Warner MD at 22:46 EST ,
--- NOTE | 2023-05-17 19:58 | ED.VIS.GI ---
HPI HPI - GI History of Present Illness Chief Complaint: Abd Pain Informant: patient Narrative Narrative: Presents with abdominal pain nausea with diarrhea 2 hours after eating [employer]. He ate salmon without cheese, ate fries. Eaten this before no issues. States this morning he woke up with his typical shoulder pain for which she reports cartilage injury years ago. Denies any abdominal surgeries. Denies any bloody stools. Denies any allergies. History of hypertension and was able to get off medications per patient. Patient concerned could be COVID and flu, denies headaches or myalgias. Prior similar symptoms: No PFSH PFSH Medical History Anxiety CVA (cerebral vascular accident) Hypertension Noncompliance with medications Physical exam, pre-employment Tear of tendon of right upper extremity Home Medications omeprazole 20 mg capsule,delayed release 20 mg PO DAILY #30 CAPSULES 03/23/23 [Rx Last Taken Unknown] ondansetron 4 mg disintegrating tablet 4 mg PO Q8H PRN PRN Nausea #10 tabs 05/17/23 [Rx Last Taken Unknown] Allergy/AdvReac Type Severity Reaction Status Date / Time No Known Allergies Allergy Verified 05/17/23 19:31 Surgical History History of tonsillectomy and adenoidectomy Social History Smoking Status: Current every day smoker tobacco type: e-cigarettes substance use type: does not use ROS ROS ED Constitutional Constitutional ED: Denies chills, fever(s) or sweats Eyes Eyes: Denies change in vision ENT ENT ED: Denies dysphagia or sore throat Cardiovascular Cardiovascular: Denies chest pain, leg edema, palpitations or racing heartbeat Respiratory/Chest Respiratory/Chest: Denies cough, dyspnea or dyspnea on exertion Gastrointestinal Gastrointestinal: Reports abdominal pain, diarrhea and nausea; Denies vomiting Genitourinary Genitourinary ED: Denies dysuria, hematuria or urinary frequency Musculoskeletal Musculoskeletal: Denies back pain, extremity pain or neck pain Integumentary Denies rash or wounds Neurologic Neurologic: Denies headache(s), paresthesias or weakness EXAM Physical Exam Const Vital Signs: 05/17/23 19:30 05/17/23 20:17 05/17/23 22:00 Temperature 96.5 F L Temperature Source Temporal Pulse Rate 149 H 116 H 109 H Respiratory Rate 18 24 H 19 H Blood Pressure 132/72 H 154/91 H 131/88 H Blood Pressure Mean 92 112 102 Pulse Ox 97 95 96 Oxygen Delivery Method Room Air Room Air Room Air Positive well nourished and well developed General Appearance ED: well developed and NAD HEENT Reports moist mucous membranes normocephalic and atraumatic Eyes PERRL, EOMs intact bilaterally and conjunctivae normal General Eye ED: Yes normal appearance of both eyes Neck no lymphadenopathy and supple General: Negative for tenderness Chest Wall Chest: Negative for tenderness Resp normal respiratory effort and normal air movement Effort and Inspection: symmetric chest movement; Negative for respiratory distress Cardio regular rhythm and no murmurs Rate: tachycardic Peripheral Pulses: pulses 2+ throughout GI normal to inspection, nondistended, normoactive bowel sounds GI Narrative: Right upper quadrant tenderness. Negative McBurney's. Palpation: Negative for guarding or rebound tenderness present Back/Spine no CVA tenderness and no thoracic nor lumbar tenderness Extremity normal to inspection General Extremety ED: Negative for edema or tenderness General Extremity: Negative for edema Neuro oriented x3 and no sensory deficits noted Sensorium / Orientation: awake and alert Skin no rashes or lesions noted and no wounds MDM MDM MDM Narrative Medical decision making narrative: Interventions / MDM: Differential diagnosis: Diarrhea, abdominal pain Diagnosis considered but do not suspect: Cholecystitis however ultrasound negative. Pancreatitis however lipase negative. No clinical appendicitis. My EKG interpretation: N/A Imaging independently reviewed and interpreted by myself: Right upper quadrant ultrasound: Normal gallbladder wall normal, no duct no sludge or fluids or stones. External documents reviewed: N/A Test considered but not ordered:N/A ED course: Patient right upper quadrant pain on exam with nausea and diarrhea symptoms. Abdominal labs, right upper quadrant ultrasound, fluids given due to his tachycardia along with Zofran and Toradol. 2220: Symptomatically improving labs are all stable COVID and flu negative. Heart rate improving sinus rhythm on the monitor. Ultrasound reviewed by myself normal gallbladder wall normal common bile duct there is no slides fluid or stones. Awaiting final read for right upper quadrant ultrasound. 2250: Ultrasound results read negative. P.o. challenge with no difficulties. Prescription for Zofran sent to his pharmacy. No he is on omeprazole daily. He will continue this. He will follow-up with his PCP. All questions were answered. Re-evaluation: stable Disposition discussed with patient/family/significant other: Patient Case discussed with consulting clinician: N/A This note was generated with Net[employer] dictation software. It may contain incorrect words, spelling, and punctuation that were not noted in checking the note before signing. Lab Data Attestation: I reviewed the patient's lab results. Labs: Laboratory Results - last 24 hr 05/17/23 20:16 WBC 10.3 RBC 5.59 Hgb 16.2 Hct 49.1 MCV 87.8 MCH 29.0 MCHC 33.0 RDW Std Deviation 41.1 RDW Coeff of Asya 12.8 Plt Count 287 MPV 9.4 Immature Gran % (Auto) 0.300 Neut % (Auto) 85.8 H Lymph % (Auto) 8.8 L [place] % (Auto) 4.3 Eos % (Auto) 0.3 Baso % (Auto) 0.5 Absolute Neuts (auto) 8.8 H Absolute Lymphs (auto) 0.90 Nucleated RBC % 0 Sodium 140 Potassium 4.1 Chloride 110 H Carbon Dioxide 29.0 Anion Gap 1 L BUN 16 Creatinine 1.08 Estim Creat Clear Calc 103.80 Est GFR (MDRD) Af Amer 110 Est GFR (MDRD) Non-Af 91 BUN/Creatinine Ratio 14.8 Glucose 139 H Calcium 8.8 Total Bilirubin 0.40 Direct Bilirubin 0.10 AST 18 ALT 33 Alkaline Phosphatase 62 Total Protein 7.3 Albumin 3.4 Globulin 3.9 Lipase 28 Radiography Diagnostic Testing: Clinical Impression(s) from Imaging Studies Gallbladder Ultrasound 05/17/23 19:50 IMPRESSION: Unremarkable right upper quadrant ultrasound. Nonvisualized pancreas. Electronically Signed: Kortney Warner MD at 22:46 EST , Discharge Plan Triage Chief Complaint: Abd Pain ED Provider: Guy Jeff Dx/Rx/DC Orders Clinical Impression: Diarrhea, Abdominal pain, Nausea Instructions: Abdominal Pain, ED Diarrhea, Unknown Cause Prescriptions: New ondansetron [ondansetron] 4 mg tablet,disintegrating 4 mg PO Q8H PRN PRN (Reason: Nausea) Qty: 10 0RF No Action omeprazole 20 mg capsule,delayed release(DR/EC) 20 mg PO DAILY Qty: 30 0RF Primary Care Provider: Eusebio Galarza Referrals: Eusebio Galarza MD [Primary Care Provider] - 1 Week Activity Restrictions/Additional Instructions: Abdominal labs are normal. Ultrasound gallbladder normal. Continue oral fluids for hydration, use Zofran as needed. Follow-up with your doctor. Disposition Disposition: Home, Self Care
--- OUTSIDE RECORDS SUMMARY | 2023-05-17 20:00 | XMS RPT_ITS | CCD ---
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 Physician Pot Room Tapper Type: Progress Notes Filed: 02/09/2023 5:29 PM Note Text: This note was created using SimuForm. Subjective Renu Licea is a 22 year old male. HPI Presents with right shoulder pain for 4 days. He states he was bowling and felt a pop in his shoulder and had sudden pain 4 days ago. Since then he has had pain with any range of motion of the shoulder. No numbness or tingling. Sometimes radiates down his bicep. He states he has actually had physical therapy for the shoulder previously. Denies any neck pain. No other complaints today. Review of Systems HENT: Negative. Musculoskeletal: Right shoulder pain All other systems reviewed and are negative. No past medical history on file. Current Outpatient Medications Medication Sig Dispense Refill aspirin 81 mg chewable tablet Take 81 mg by mouth once daily. (Patient not taking: Reported on 07/03/2021 ) atorvastatin (LIPITOR) 40 mg tablet Take 40 mg by mouth once daily. (Patient not taking: Reported on 07/03/2021 ) clopidogrel (PLAVIX) 75 mg tablet Take 75 mg by mouth. (Patient not taking: Reported on 07/03/2021 ) busPIRone (BUSPAR) 5 mg tablet Take 5 mg by mouth. (Patient not taking: Reported on 07/03/2021 ) escitalopram oxalate (LEXAPRO) 10 mg tablet Take by mouth. (Patient not taking: Reported on 07/03/2021 ) lisinopril (ZESTRIL, PRINIVIL) 5 mg tablet Take 2.5 mg by mouth. (Patient not taking: Reported on 07/03/2021 ) naproxen (NAPROSYN) 500 mg tablet Take 500 mg by mouth. (Patient not taking: Reported on 07/03/2021 ) omeprazole (PRILOSEC) 20 mg capsule Take by mouth. (Patient not taking: Reported on 07/03/2021 ) ondansetron orally disintegrating (ZOFRAN ODT) 4 mg disintegrating tablet Ondansetron Active 4 MG EVERY 8 HOURS NEEDED May 04, 2019 11:27pm (Patient not taking: Reported on 07/03/2021) No current facility-administered medications for this visit. No past surgical history on file. No family history on file. Social History Tobacco Use Smoking status: Never Smokeless tobacco: Never Objective BP 132/82 Pulse 118 Temp 36.7 ?C (98.1 ?F) Resp 18 Wt 98.9 kg (218 lb) SpO2 97% Physical Exam Vitals reviewed. Constitutional: Appearance: Normal appearance. HENT: Head: Normocephalic and atraumatic. Musculoskeletal: Comments: Exam of the right shoulder reveals no bruising or swelling. Patient tender in the posterior glenohumeral joint. Pain with internal and external rotation. Pain with lifting the arm past 90 degrees. Full strength and sensation in upper extremities. Radial pulse 2+. Normal hand grasp strength. No sign of a biceps long rupture and full flexion and extension at the elbow without difficulty. Skin: General: Skin is warm and dry. Neurological: Mental Status: He is alert. Assessment and Plan ASSESSMENT/PLAN: 1. Injury of right shoulder, initial encounter - ICD9: 959.2, ICD10: S49.91XA X-rays are unremarkable. Discussed possible rotator cuff injury. Discussed follow-up with orthopedics. Ibuprofen and Tylenol, rest, ice recommended. Follow-up with PCP if needs an extension on the note I gave him for a week for work with limited use of the right arm. - XR SHOULDER GENERAL 3V OR MORE AP/TRUE AP/OTHER RIGHT Alvaro Stone PA-C [facility] 02-09-2023 Note HNO ID: [id number] Author: Alexus Camacho RT(R) Service: Radiology Author Type: Technologist Type: Progress Notes Filed: 02/09/2023 5:02 PM Note Text: Radiology Service Progress Note PATIENT NAME: Renu Licea DATE OF SERVICE: February 09, 2023 TIME: 4:54 PM PATIENT IDENTITY VERIFICATION COMPLETED USING TWO (2) IDENTIFIERS: Name and Date of confirmed by patient verbally. FALL SCREENING: Has the patient had 2 falls in the last year or 1 fall with injury or currently using an Ambulatory Assistive Device (Walker, Cane, Wheelchair, Crutches, etc.)? No PATIENT GENDER DATA: Male PATIENT RELEVANT IMPLANT DATA REVIEWED: Yes RADIOLOGY DEPARTMENT: General X-ray: Exam(s) Completed: Upper Extremity X-Ray(s): Shoulder, AP / TRUE AP / AXILLARY right PERIPHERAL IV DATA: Not applicable SIGNED BY: RT Earline(R) February 09, 2023 4:[address] [facility] 07-14-2022 Note HNO ID: [id number] Author: Ivanna Villanueva APRN.HOTEL CUSTODIAN Service: ? Author Type: Nurse Practitioner Type: Progress Notes Filed: 07/14/2022 5:16 PM Note Text: CC: Patient presents with: Head Congestion: ringing in ears and dizziness x 1 month HPI: Renu Licea is a 22 year old male who presents to the office with complaint of ear symptoms for a month. Symptoms are staying the same. Associated symptoms includes ear pain, ear pressure , and ringing and dizziness. Denies headache, body aches, fever, nausea, vomiting , and diarrhea. Treatments tried include nothing so far. with no relief of symptoms. Sick contacts: unknown. History of asthma, frequent episodes of bronchitis, chronic bronchitis, bronchiectasis or COPD: No Smoker: No Seasonal/environmental allergies: No The ROS is otherwise negative. The patient's pmh, medications, allergies, and past visits are reviewed. PHYSICAL EXAM: BP 108/68 Pulse 98 Temp 36.2 ?C (97.1 ?F) Resp 16 Wt 94.8 kg (209 lb) SpO2 96% General appearance: alert, cooperative, pleasant, in no acute distress Head: Normocephalic Eyes: EOM's intact, conjunctiva pink and moist, no icterus, sclera white, non-injected Ears: Right ear: External ear/canal- otitis externa, TM - erythematous, bulging. Left ear: External ear/canal- Normal, TM - clear with good landmarks Oropharynx:moist without lesions, No erythema, exudates or tonsillar hypertrophy. Heart: Negative. RRR without obvious murmur, gallop, or rubs. No ectopy. Lungs: clear to auscultation, without rales or wheeze, good air exchange No past medical history on file. No past surgical history on file. ALLERGIES Patient has no known allergies. MEDICATIONS amoxicillin (AMOXIL) 875 mg tablet Take 1 tablet by mouth twice daily for 7 days. ofloxacin (FLOXIN) 0.3 % otic solution Use 5 Drops in the right ear once daily for 7 days. aspirin 81 mg chewable tablet Take 81 mg by mouth once daily. (Patient not taking: Reported on 07/03/2021 ) atorvastatin (LIPITOR) 40 mg tablet Take 40 mg by mouth once daily. (Patient not taking: Reported on 07/03/2021 ) clopidogrel (PLAVIX) 75 mg tablet Take 75 mg by mouth. (Patient not taking: Reported on 07/03/2021 ) busPIRone (BUSPAR) 5 mg tablet Take 5 mg by mouth. (Patient not taking: Reported on 07/03/2021 ) escitalopram oxalate (LEXAPRO) 10 mg tablet Take by mouth. (Patient not taking: Reported on 07/03/2021 ) lisinopril (ZESTRIL, PRINIVIL) 5 mg tablet Take 2.5 mg by mouth. (Patient not taking: Reported on 07/03/2021 ) naproxen (NAPROSYN) 500 mg tablet Take 500 mg by mouth. (Patient not taking: Reported on 07/03/2021 ) omeprazole (PRILOSEC) 20 mg capsule Take by mouth. (Patient not taking: Reported on 07/03/2021 ) ondansetron orally disintegrating (ZOFRAN ODT) 4 mg disintegrating tablet Ondansetron Active 4 MG EVERY 8 HOURS NEEDED May 04, 2019 11:27pm (Patient not taking: Reported on 07/03/2021) No family history on file. Social History Tobacco Use Smoking status: Never Smokeless tobacco: Never ASSESSMENT/PLAN: 1. Acute otitis media, right - ICD9: 382.9, ICD10: H66.91 - OFLOXACIN 0.3 % EAR DROPS - AMOXICILLIN 875 MG TABLET - OFLOXACIN 0.3 % EAR DROPS Prescription instructions reviewed with patient as applicable. Potential red flag symptoms discussed with the patient. Reviewed appropriate action plan to take if red flag symptoms occur. Patient agreeable to treatment plan. Will follow up with PCP. Ivanna Villanueva APRN.[facility] 07-14-2022 History of Presen t illness Narrative CC: Patient presents with: Head Congestion: ringing in ears and dizziness x 1 month HPI: Renu Licea is a 22 year old male who presents to the office with complaint of ear symptoms for a month. Symptoms are staying the same. Associated symptoms includes ear pain, ear pressure , and ringing and dizziness. Denies headache, body aches, fever, nausea, vomiting , and diarrhea. Treatments tried include nothing so far. with no relief of symptoms. Sick contacts: unknown. History of asthma, frequent episodes of bronchitis, chronic bronchitis, bronchiectasis or COPD: No Smoker: No Seasonal/environmental allergies: No The ROS is otherwise negative. The patient's pmh, medications, allergies, and past visits are reviewed. PHYSICAL EXAM: BP 108/68 Pulse 98 Temp 36.2 C (97.1 F) Resp 16 Wt 94.8 kg (209 lb) SpO2 96% General appearance: alert, cooperative, pleasant, in no acute distress Head: Normocephalic Eyes: EOM's intact, conjunctiva pink and moist, no icterus, sclera white, non-injected Ears: Right ear: External ear/canal- otitis externa, TM - erythematous, bulging. Left ear: External ear/canal- Normal, TM - clear with good landmarks Oropharynx:moist without lesions, No erythema, exudates or tonsillar hypertrophy. Heart: Negative. RRR without obvious murmur, gallop, or rubs. No ectopy. Lungs: clear to auscultation, without rales or wheeze, good air exchange No past medical history on file. No past surgical history on file. ALLERGIES Patient has no known allergies. MEDICATIONS amoxicillin (AMOXIL) 875 mg tablet Take 1 tablet by mouth twice daily for 7 days. ofloxacin (FLOXIN) 0.3 % otic solution Use 5 Drops in the right ear once daily for 7 days. aspirin 81 mg chewable tablet Take 81 mg by mouth once daily. (Patient not taking: Reported on 07/03/2021 ) atorvastatin (LIPITOR) 40 mg tablet Take 40 mg by mouth once daily. (Patient not taking: Reported on 07/03/2021 ) clopidogrel (PLAVIX) 75 mg tablet Take 75 mg by mouth. (Patient not taking: Reported on 07/03/2021 ) busPIRone (BUSPAR) 5 mg tablet Take 5 mg by mouth. (Patient not taking: Reported on 07/03/2021 ) escitalopram oxalate (LEXAPRO) 10 mg tablet Take by mouth. (Patient not taking: Reported on 07/03/2021 ) lisinopril (ZESTRIL, PRINIVIL) 5 mg tablet Take 2.5 mg by mouth. (Patient not taking: Reported on 07/03/2021 ) naproxen (NAPROSYN) 500 mg tablet Take 500 mg by mouth. (Patient not taking: Reported on 07/03/2021 ) omeprazole (PRILOSEC) 20 mg capsule Take by mouth. (Patient not taking: Reported on 07/03/2021 ) ondansetron orally disintegrating (ZOFRAN ODT) 4 mg disintegrating tablet Ondansetron Active 4 MG EVERY 8 HOURS NEEDED May 04, 2019 11:27pm (Patient not taking: Reported on 07/03/2021) No family history on file. Social History Tobacco Use Smoking status: Never Smokeless tobacco: Never ASSESSMENT/PLAN: 1. Acute otitis media, right - ICD9: 382.9, ICD10: H66.91 - OFLOXACIN 0.3 % EAR DROPS - AMOXICILLIN 875 MG TABLET - OFLOXACIN 0.3 % EAR DROPS Prescription instructions reviewed with patient as applicable. Potential red flag symptoms discussed with the patient. Reviewed appropriate action plan to take if red flag symptoms occur. Patient agreeable to treatment plan. Will follow up with PCP. Ivanna Villanueva APRN.KARTHIK documented in this encounter [facility] 01-14-2022 History of Presen t illness Narrative Nontoxic-appearing male presents urgent care chief complaint possible seizure-like activity. Patient states 3 weeks ago he was diagnosed with a TIA. States he wakes up in the middle night with a pounding heart and shaking. Does not know if he is having seizures. Presents today for evaluation. With patient presenting symptoms I recommended him contacting PCP to discuss symptoms. If unable to contact PCP be seen in ED for further evaluation care. Patient verbalized understanding agrees with plan of care. Joseph Lynn APRN.CNP documented in this encounter [facility] 08-16-2021 History of Presen t illness Narrative Images from the original note were not included. Subjective HPI Renu Licea is a 21 year old male who presents with a dog bite to his left knee. He was playing in his yard with his dog when she saw a squirrel and got excited and bit him. It is his dog and he is not concerned about reporting it. He did not clean the wound. He is unsure when his last tetanus booster was. Review of Systems Constitutional: Negative for chills and fever. Musculoskeletal: Negative for joint pain. See HPI Skin: Negative for itching and rash. BP 132/74 Pulse 96 Temp 36.1 C (96.9 F) Resp 18 Wt 99.3 kg (219 lb) SpO2 98% No past medical history on file. No past surgical history on file. ALLERGIES Patient has no known allergies. MEDICATIONS amoxicillin-clavulanic acid (AUGMENTIN) 875-125 mg per tablet Take 1 tablet by mouth twice daily for 10 days. aspirin 81 mg chewable tablet Take 81 mg by mouth once daily. atorvastatin (LIPITOR) 40 mg tablet Take 40 mg by mouth once daily. clopidogrel (PLAVIX) 75 mg tablet Take 75 mg by mouth. busPIRone (BUSPAR) 5 mg tablet Take 5 mg by mouth. escitalopram oxalate (LEXAPRO) 10 mg tablet Take by mouth. lisinopril (ZESTRIL, PRINIVIL) 5 mg tablet Take 2.5 mg by mouth. naproxen (NAPROSYN) 500 mg tablet Take 500 mg by mouth. omeprazole (PRILOSEC) 20 mg capsule Take by mouth. ondansetron orally disintegrating (ZOFRAN ODT) 4 mg disintegrating tablet Ondansetron Active 4 MG EVERY 8 HOURS NEEDED May 04, 2019 11:27pm No family history on file. Social History Tobacco Use Smoking status: Never Smoker Smokeless tobacco: Never Used Substance Use Topics Alcohol use: Not on file Drug use: Not on file Objective Physical Exam Vitals and nursing note reviewed. Constitutional: Appearance: Normal appearance. Musculoskeletal: Left knee: Swelling (at bite rowe) present. No erythema, ecchymosis or lacerations. Normal range of motion. Tenderness (at bite rowe) present. Legs: Skin: General: Skin is warm and dry. Capillary Refill: Capillary refill takes less than 2 seconds. Findings: No erythema or rash. Neurological: Mental Status: He is alert. ASSESSMENT/PLAN: 1. Dog bite of left knee, initial encounter - ICD9: 891.0, E906.0, ICD10: S81.052A, W54.0XXA - TDAP VACCINE AGE 7+ IM - AMOXICILLIN 875 MG-POTASSIUM CLAVULANATE 125 MG TABLET - wound cleaned with chlorhexidine and saline. Covered with antibiotic ointment (bacitracin) and dressing. - Follow-up with your PCP in 3-5 days if symptoms have not improved or sooner if symptoms worsen - Discussed red flags and need for immediate medical evaluation if any occur. - Discussed supportive care treatment with fluids, rest and analgesia. - Discussed expected course of illness Reina Jorgensen APRN.CNP documented in this encounter [facility] 08-16-2021 Instructions Reina Jorgensen APRN.KARTHIK - 08/16/2021 12:13 PM EDT ASSESSMENT/PLAN: 1. Dog bite of left knee, initial encounter - ICD9: 891.0, E906.0, ICD10: S81.052A, W54.0XXA - TDAP VACCINE AGE 7+ IM - AMOXICILLIN 875 MG-POTASSIUM CLAVULANATE 125 MG TABLET - wound cleaned with chlorhexidine and saline. Covered with antibiotic ointment (bacitracin) and dressing. - Follow-up with your PCP in 3-5 days if symptoms have not improved or sooner if symptoms worsen - Discussed red flags and need for immediate medical evaluation if any occur. - Discussed supportive care treatment with fluids, rest and analgesia. - Discussed expected course of illness Reina Jorgensen APRN.CNP WOUND CARE GENERAL INFORMATION: A wound is a break in the skin. There are several types of wounds. Abrasions occur when the outer layer of the skin is rubbed or scraped off. Lacerations are cuts in the skin. Puncture wounds are holes that are made by round, sharp objects such as needles or nails. It may have been necessary to close the wound with stitches (sutures) to speed healing and to prevent infection. Using stitches also will decrease the amount of scarring. INSTRUCTIONS: 1. Keep the bandage clean and dry. If it gets wet and you need to change it, unwrap slowly and carefully. If it sticks and starts to hurt, use water to loosen it gently. Pat the area dry with a clean towel before putting on another bandage. You may use antibiotic ointment. 2. If possible, keep the wound raised for 24-48 hours to decrease pain and swelling and help healing. 3. Leave the dressing on for one days. 4. Clean the wound 2 times a day: Use soap and water to clean your wound gently. Puncture wounds may be soaked in warm water for 10 minutes. CONTACT YOUR DOCTOR OR RETURN TO THE ED IF: 1. You have a temperature over 100.4 F (38 C). 2. You have signs of infection such as increasing pain or soreness, swelling, redness, pus, a foul smell, or red streaks coming from the injured site. 3. You have numbness or swelling below the wound, or you can't move the joint below. documented in this encounter [facility] documented in this encounter [facility]* Diagnosis Procedure not carried out- Primary Procedure not carried out for other reasons [facility] Diagnosis Acute otitis media, right- Primary Unspecified otitis media documented in this encounter [facility] note* Diagnosis Acquired subluxation of right shoulder, subsequent encounter- Primary [facility] Diagnosis Pain of finger of right hand- Primary Pain in limb [facility] Diagnostic Procedure Only (Urgent) - Closed Specialty Diagnoses / Procedures Referred By Sarika humphreys Referred To Contact XR IMAGING Diagnoses Pain of finger of right hand Procedures XR DIGIT GENERAL 3V FRONTAL/LAT/OBL RIGHT RADEX FINGR MINIMUM 2 VIEWS Aurelia Corbett APRN.CNP [address] [place] [address] [place] [id number] Referral ID Status Reason Start Date Expiration Date V isits Requested Visits Authorized [id number] Closed Auto-Generate d Referral 04/06/2023 05/05/2024 1 1 [facility] Summary Purpose Family History No Family History Records FoundNo Family History Records FoundNo Family History Records Found Advance Directives No Advanced Directives Records FoundNo Advanced Directives Records FoundNo Advanced Directives Records Found Reason for Referral Specialty Diagnoses / Procedures Referred By Sarika humphreys Referred To Contact [facility] Diagnoses Acquired subluxation of right shoulder, subsequent encounter Procedures CONSULT TO PHYSICAL THERAPY PHYSICAL THERAPY EVALUATION HIGH COMPLEX 45 MINS Josue Palmer V, DO [address] [place] [address] [facility] [address] [place] [address] Referral ID Status Reason Start Date Expiration Date Visits Requested Visits Authorized [id number] Pending Review Auto-Generat ed Referral 3 02/26/2024 1 1 Additional Source Comments (unrecognized sect ion and content) No Status Records FoundNo Status Records FoundNo Status Records Found INFORMATION SOURCE (unrecogn ized section and content) DATE CREATED AUTHOR AUTHOR'S ORGANIZ ATION 10/10/2020 [facility] DATE CREATED AUTHOR AUTHOR'S ORGANIZ ATION 04/09/[address] [facility] Source Comments (unrecognize d section and content) In the event this informatio n is protected by the Federal Confidentiality of Alcohol and Drug Abuse Patient Records regulations: The Federal rules restrict any use of the information to criminally investigate or prosecute any alcohol or drug abuse patient.[facility] the event this information is protected by the Federal Confidentiality of Alcohol and Drug Abuse Patient Records regulations: The Federal rules restrict any use of the information to criminally investigate or prosecute any alcohol or drug abuse patient.[facility] the event this information is protected by the Federal Confidentiality of Alcohol and Drug Abuse Patient Records regulations: The Federal rules restrict any use of the information to criminally investigate or prosecute any alcohol or drug abuse patient.[facility] the event this information is protected by the Federal Confidentiality of Alcohol and Drug Abuse Patient Records regulations: The Federal rules restrict any use of the information to criminally investigate or prosecute any alcohol or drug abuse patient.[facility] the event this information is protected by the Federal Confidentiality of Alcohol and Drug Abuse Patient Records regulations: The Federal rules restrict any use of the information to criminally investigate or prosecute any alcohol or drug abuse patient.[facility] Reason for Visit (unrecogniz ed section and content) Reason Comments Head Congestion ringing in ears and dizziness x 1 month Reason Comments right shoulder pain Reason Comments right hand pain X 2 days-cannot reca ll an injury Care Teams (unrecognized sec tion and content) Office Electrician Relationship Specialty Start Date End Date Maria Eugenia Galarza MD [address], [place] [id number] PCP - General Family Practice 07/09/18 Office Electrician Relationship Specialty Start Date End Date Maria Eugenia Galarza MD [address] [facility] [place], [place] [id number] PCP - General Family Medicine 07/09/18 Office Electrician Relationship Specialty Start Date End Date Maria Eugenai Galarza MD [address] [place] [address] PCP - General Family Medicine 07/09/18 FOR RECORDS PERTAINING TO PATIENTS WHO ARE OR HAVE BEEN ENROLLED IN A CHEMICAL DEPENDENCY/SUBSTANCEABUSE PROGRAM, SOME INFORMATION MAY BE OMITTED. This clinical summary was aggregated from multiple sources. Caution should be exercised in using it in the provision of clinical care. This summary normalizes information from multiple sources, and as a consequence, information in this document may materially change the coding, format and clinical context of patient data. In addition, data may be omitted in some cases. CLINICAL DECISIONS SHOULD BE BASED ON THE PRIMARY CLINICAL RECORDS. [facility]. provides no warranty or guarantee of the accuracy or completeness of information in this document.
[2023-05-17] MEDS: 0.9% Normal Saline (1000mL) 1,000 ML 1000 ML IV (20:14)
[2023-05-17] MEDS: Ketorolac 15 MG/ML Vial IV (20:14)
[2023-05-17] MEDS: Ondansetron 4 MG/2 ML Vial IV (20:14)
[2023-05-17 20:17] VITALS: BP 154/91; PULSE 116; RESP 24; O2SAT 95
[2023-05-17 20:28] LABS: Absolute Neutrophil Count 8.8 X10^3/uL (2.0-7.7); Basophil# 0.05 X10^3/uL; Basophil% 0.5 % (0-1); Eosinophil# 0.03 X10^3/uL; Eosinophils% 0.3 % (0-5); Hematocrit 49.1 % (40-54); Hemoglobin 16.2 g/dL (13.0-16.5); Lymphocyte % 8.8 % (19-41); Mean Corpuscular Volume 87.8 fL (80-94); Mean Platelet Vol. 9.4 fl (6.2-12.0); Monocyte# 0.44 X10^3/uL; Monocyte% 4.3 % (0-10); NRBC Flagged by Analyzer 0 % (0-5); Neutrophil # 8.82 X10^3/uL (2.7-7.7); Neutrophil % 85.8 % (47-70); Platelet Count 287 K/mm3 (150-450); RBC Distribution Width CV 12.8 % (11.6-14.6); RBC Distribution Width SD 41.1 fl (35.1-43.9); Red Blood Count 5.59 M/mm3 (4.6-6.2); White Blood Count 10.3 K/mm3 (4.4-11.0)
[2023-05-17 20:45] LABS: AST(SGOT) 18 U/L (15-37); Alanine Aminotransfer ALT/SGPT 33 U/L (16-61); Albumin, Serum 3.4 g/dL (3.2-5.0); Alkaline Phosphatase 62 U/L (45-117); Anion Gap 1 (5-15); BUN 16 mg/dL (7-18); BUN/Creat Ratio 14.8 RATIO (10-20); Calcium,Total 8.8 mg/dL (8.5-10.1); Chloride 110 mmol/L (98-107); Creatinine, Serum 1.08 mg/dL (0.70-1.30); EST Glomerular Filtration Rate 91 mL/min (>60); Est Glom Filt Rate - Afr Amer 110 mL/min (>60); Globulin 3.9 g/dL (2.2-4.2); Glucose 139 mg/dL (74-106); Lipase 28 U/L (13-75); Potassium 4.1 mmol/L (3.5-5.1); Protein, Total 7.3 g/dL (6.4-8.2); Sodium Level 140 mmol/L (136-145)
[2023-05-17 22:00] VITALS: BP 131/88; PULSE 109; RESP 19; O2SAT 96
[2023-05-17 23:12] VITALS: BP 130/87; PULSE 98; RESP 18; O2SAT 96
== END 2023-05-17 23:13 | disposition home or self-care (01) ==
PROVIDERS: Emergency Provider Emergency Medicine; PCP Family Medicine; Visit Provider Emergency Medicine
DX: R19.7 Diarrhea, unspecified (principal); R10.9 Unspecified abdominal pain; R11.0 Nausea; F17.290 Nicotine dependence, other tobacco product, uncomplicated; Z86.73 Personal history of transient ischemic attack (TIA), and cerebral infarction without residual deficits
CPT/HCPCS: 76705; 80048; 80076; 83690; 85025; 87428; 96361; 96374; 96375; 99284; J7030; A4216; J2405

== ENCOUNTER 2023-06-21 20:38 | Emergency (ER) | payer OTHER, SELFPAY ==
[2023-06-21 20:39] VITALS: BP 153/95; PULSE 104; RESP 18; TEMP 36.1; O2SAT 99; BMI 34.9
--- OUTSIDE RECORDS SUMMARY | 2023-06-21 21:55 | XMS RPT_ITS | CCD ---
Author Name Unknown Address [address] [place] [address] Organization [facility] Care Team Providers Care Product Development Coordinator Name Role Phone REGINA GARCIA Unavailable Unavailable [...] 97.81 [degF] Aurelia Corbett APRN.CNP Work Phone: [facility] 04-06-2023 16:26-0500 Body weight 100.06 kg Aurelia Corbett APRN.CNP Work Phone: [facility] 04-06-2023 16:26-0500 Diastolic blood pressure 84 mm[Hg] Aurelia Corbett APRN.CNP Work Phone: [facility] 04-06-2023 16:26-0500 Heart rate 103 /min Aurelia Corbett APRN.CNP Work Phone: [facility] 04-06-2023 16:26-0500 Respiratory rate 16 /min Aurelia Corbett APRN.MILL BEAM FITTER Work Phone: [facility] 04-06-2023 16:26-0500 SaO2% (BldA) [Mass fraction] 97 % Aurelia Corbett APRN.[employer]LL BE[employer]TER Work Phone: [facility] 04-06-2023 16:26-0500 Systolic blood pressure 128 mm[Hg] Aurelia Corbett APRN.[employer]LL BE[employer]TER Work Phone: [facility] 07-14-2022 16:54-0500 Body temperature 97.11 [degF] Ivanna Villanueva APRN.[employer] BE[employer]TER Work Phone: [facility] 07-14-2022 16:54-0500 Body weight 94.8 kg Ivanna Villanueva APRN.[employer] BE[employer]TER Work Phone: [facility] 07-14-2022 16:54-0500 Diastolic blood pressure 68 mm[Hg] Ivanna Villanueva APRN.MILL BE[employer]TER Work Phone: [facility] 07-14-2022 16:54-0500 Heart rate 98 /min Ivanna Villanueva APRN.MILL BE[employer]TER Work Phone: [facility] 07-14-2022 16:54-0500 Respiratory rate 16 /min Ivanna Villanueva APRN.MILL BE[employer]TER Work Phone: [facility] 07-14-2022 16:54-0500 SaO2% (BldA) [Mass fraction] 96 % Ivanna Villanueva APRN.MILL BE[employer]TER Work Phone: [facility] 07-14-2022 16:54-0500 Systolic blood pressure 108 mm[Hg] Ivanna Villanueva APRN.MILL BE[employer]TER Work Phone: [facility] 08-16-2021 11:54-0400 Body temperature 96.91 [degF] Reina Jorgensen APRN.MILL BE[employer]TER Work Phone: [facility] 08-16-2021 11:54-0400 Body weight 99.34 kg Reina Jorgensen APRN.MILL BE[employer]TER Work Phone: [facility] 08-16-2021 11:54-0400 Diastolic blood pressure 74 mm[Hg] Reina Littlejohnler-Hola ALTMAN.KARTHIK Work Phone: [facility] 08-16-2021 11:54-0400 Heart rate 96 /min Reina Jorgensen APRN.MILL BE[employer]TER Work Phone: [facility] 08-16-2021 11:54-0400 Respiratory rate 18 /min Reina Jorgensen APRN.MI[employer]TER Work Phone: [facility] 08-16-2021 11:54-0400 SaO2% (BldA) [Mass fraction] 98 % Reina Jorgensen APRN.MILL BE[employer]TER Work Phone: [facility] 08-16-2021 11:54-0400 Systolic blood pressure 132 mm[Hg] Reina Santacruz-Hola ALTMAN.MILL BEAM FITTER Work Phone: [facility] Encounters Encounter Date Encounter Type Care Provider Facility Start: 04-06-2023 End: 04-06-[facility] Start: 04-06-2023 End: 04-06-2023 Patient encounter procedure Aurelia Corbett APRN.CNP Work Phone: [facility] Procedures Date Procedure Procedure Detail Performing Clinician Start: 04-06-2023 Radex fingr minimum 2 views Aurelia Corbett APRN.KARTHIK Work Phone: Plan of Treatment Date Care Activity Detail Author Start: 08-17-2031 Urine microalbumin profile [facility] Start: 07-14-2023 BP CONTROLLED (<130/80) BP CONTROLLE D (<130/80) [facility] Start: 01-15-2023 Influenza vaccination Influenza Vacc ine (#1) [facility] Start: 05-17-2022 DEPRESSION ASSESSMENT DEPRESSION ASS ESSMENT [facility] Start: 01-15-2022 Influenza vaccination [facility] Start: 2019 ANNUAL PCP TEAM LICENSED PHYSICAL THERAPY ASSISTANT PRINCESS DISEASE VISIT ANNUAL PCP TEAM CHRONIC DISEASE VISIT [facility] Start: 2019 BP CONTROLLED (<130/80) BP CONTROLLE D (<130/80) [facility] Start: 2019 HEPATITIS C SCREENING HEPATITIS C SC ANGELICA [facility] Start: 2019 HIV SCREENING HIV SCREENING [facility] Start: 2017 Meningococcal B Vacc ine: Consider Based On Risk (1 of 2 - Patient Seeks Protection) Meningococcal B Vaccine: Consider Based On Risk (1 of 2 - Patient Seeks Protection) [facility] Start: 2015 PEDS TO ADULT TRANSI TION ANNUAL ASSESSMENT PEDS TO ADULT TRANSITION ANNUAL ASSESSMENT [facility] Start: 2013 Adult depression scr eening assessment DEPRESSION SCREENING [facility] Start: 2013 PEDS TO ADULT TRANSI TION INITIAL DISCUSSION PEDS TO ADULT TRANSITION INITIAL DISCUSSION [facility] Start: 2012 HPV VACCINE (1 - Mal e 2-dose series) HPV VACCINE (1 - Male 2-dose series) [facility] Start: 2011 MENINGOCOCCAL B: Con market gardener based on risk (1 of 2 - Risk Bexsero 2-dose series) MENINGOCOCCAL B: Consider based on risk (1 of 2 - Risk Bexsero 2-dose series) [facility] Start: 2010 HPV Vaccine (1 - Mal e 2-dose series) HPV Vaccine (1 - Male 2-dose series) [facility] Start: 2006 COVID-19 VACCINE (1) COVID-19 VACCIN E (1) [facility] Start: 2001 COVID-19 VACCINE (#1) COVID-19 VACCI NE (#1) [facility] Start: 2001 HEPATITIS B (1 of 3 - 3-dose series) HEPATITIS B (1 of 3 - 3-dose series) [facility] Start: 2001 Hepatitis B Vaccine (1 of 3 - 3-dose series) Hepatitis B Vaccine (1 of 3 - 3-dose series) [facility] Immunizations Immunization Date Immunization Notes Care Provider Oscar erwin 08-16-2021 tetanus toxoid, redu alexis diphtheria toxoid, and acellular pertussis vaccine, adsorbed Reina Jorgensen APRN.KARTHIK Work Phone: [facility] Work Phone: Payers Date Payer Category Payer Unknown [employer] PPO [id number] 2021-Present [phone] [address] [place] [address] PPO [id number] 2018 Unknown [id number] 2018 Unknown [id number] 2001 Unknown [id number] Unknown [id number] Social History Date Type Detail Facility Start: 07-09-2018 End: 07-14-2022 Tobacco smoking status NHIS Never smoked tobacco [facility] Start: 07-09-2018 End: 07-14-2022 Tobacco use and exposure Smokeless tobacco non-user [facility] Start: 2001 Sex Assigned At Not on file [facility] Start: 08-06-2021 End: 12-26-2021 Exposure to SARS-CoV-2 (event) Not sure [facility] Start: 02-26-2023 End: 04-06-2023 Alcohol intake Lifetime non-drinker (finding) [facility] Start: 02-26-2023 End: 04-06-2023 History of Social function [facility] Start: 02-26-2023 End: 04-06-2023 Tobacco use panel [facility] National Score (1-10 0), lower number is lower risk 64 [facility] Clinical Notes 08-16-2021 to 04-06-2023 Aurelia Corbett APRN.MILL BEAM FITTER - 04/06/2023 4:36 PM Josue Salazar V, DO - 02/26/2023 4:04 PM Fani Figueredo Ma - 02/26/2023 3:52 PM Stephen Villanueva APRN.MILL BEAM FITTER - 07/14/2022 4:58 PM EST Note Date & Type Note Facility 04-06-2023 Note HNO ID: [id number] Author: Alexus Camacho RT(R) Service: Radiology Author [...] RT Earline(R) April 06, 2023 4:44 PM [facility] 04-06-2023 Note HNO ID: [id number] Author: Aurelia Corbett APRN.MILL BEAM FITTER Service: ? Author Type: Nurse Practitioner Type: [...] digit. Dictated by : MD Aurelia ANTONY APRN.[facility] 04-06-2023 History of Presen t [...] digit. Dictated by : MD Aurelia ANTONY APRN.MILL BEAM FITTER documented in this encounter [facility] 02-26-2023 Note HNO ID: [id number] Author: Josue Palmer V DO Service: ? Author Type: Physician Type: Progress Notes Filed: 02/26/2023 4:07 PM Note Text: Patient presents with: right shoulder pain HPI: Reun is a 22 year old male right-hand [...] with imaging is recommended. Josue Palmer DO [facility] 02-26-2023 Note HNO ID: [id number] Author: Fani Lopez Ma Service: ? Author Type: ? Type: Progress Notes Filed: 02/26/2023 4:07 PM Note Text: AMB ROOMING INTAKE FLOWSHEET DATA Pain Pain Level: 3 Pain Location: Shoulder-Right Description: Aching Duration Amount of Time: 3 Duration Units: Weeks Frequency: Intermittent Intervention/Comfort measure: Cold, Medication [facility] 02-26-2023 History of Presen t illness Narrative [...] measure: Cold, Medication documented in this encounter [facility] 02-09-2023 Note HNO ID: [id number] Author: Alvaro Stone PA-C Service: ? Author Type: Physician Premix Operator Concentrate Type: Progress Notes Filed: 02/09/2023 5:29 PM Note Text: This note was created using GCD Systeme. Subjective Renu Licea is a 22 year [...] MORE AP/TRUE AP/OTHER RIGHT Alvaro Stone PA-C [facility] 02-09-2023 Note HNO ID: [id number] Author: Alexus Camacho RT(R) Service: Radiology Author [...] RT Earline(R) February 09, 2023 4:54 PM [facility] 07-14-2022 Note HNO ID: [id number] Author: Ivanna Villanueva APRN.MILL BEAM FITTER Service: ? Author Type: Nurse Practitioner Type: [...] Will follow up with PCP. Ivanna Villanueva APRN.[facility] 07-14-2022 History of Presen t [...] Ivanna Villanueva APRN.KARTHIK documented in this encounter [facility] 01-14-2022 History of Presen t illness Narrative [...] Joseph Lynn APRN.CNP documented in this encounter [facility] 08-16-2021 History of Presen t illness Narrative [...] Reina Jorgensen APRN.CNP documented in this encounter [facility] 08-16-2021 Instructions Reina Jorgensen APRN.KARTHIK - 08/16/2021 [...] the joint below. documented in this encounter [facility] Diagnosis Procedure not carried out- Primary Procedure not carried out for other reasons [facility] Diagnosis Acute otitis media, right- Primary Unspecified otitis media documented in this encounter [facility] note* Diagnosis Acquired subluxation of right shoulder, subsequent encounter- Primary [facility] Diagnosis Pain of finger of right hand- Primary Pain in limb [facility] Diagnostic Procedure Only (Urgent) - Closed Specialty Diagnoses / Procedures Referred By Sarika humphreys Referred To Contact XR IMAGING Diagnoses Pain of finger of right hand Procedures XR DIGIT GENERAL 3V FRONTAL/LAT/OBL RIGHT RADEX FINGR MINIMUM 2 VIEWS Aurelia Corbett APRN.CNP [address] [place] [address] [place] [id number] Referral ID Status Reason Start Date Expiration Date V isits Requested Visits Authorized [id number] Closed Auto-Generate d Referral 04/06/2023 05/05/2024 1 1 [facility] Summary Purpose Family History No Family History [...] 45 MINS Josue Palmer V, DO [address] [place] [address] [facility] [address] [place] [address] Referral ID Status Reason Start Date Expiration Date Visits Requested Visits Authorized [id number] Pending Review Auto-Generat ed Referral 3 02/26/2024 1 1 Additional Source Comments (unrecognized sect ion and content) No Status Records FoundNo Status Records FoundNo Status Records Found INFORMATION SOURCE (unrecogn ized section and content) DATE CREATED AUTHOR AUTHOR'S ORGANIZ ATION 10/10/2020 [facility] DATE CREATED AUTHOR AUTHOR'S ORGANIZ ATION 04/09/2023 [facility] Source Comments (unrecognize d section and content) In the event this informatio n is protected by the Federal Confidentiality of Alcohol and Drug Abuse Patient Records regulations: The Federal rules restrict any use of the information to criminally investigate or prosecute any alcohol or drug abuse patient.[facility] the event this information is protected by the Federal Confidentiality of Alcohol and Drug Abuse Patient Records regulations: The Federal rules restrict any use of the information to criminally investigate or prosecute any alcohol or drug abuse patient.[facility] the event this information is protected by the Federal Confidentiality of Alcohol and Drug Abuse Patient Records regulations: The Federal rules restrict any use of the information to criminally investigate or prosecute any alcohol or drug abuse patient.[facility] the event this information is protected by the Federal Confidentiality of Alcohol and Drug Abuse Patient Records regulations: The Federal rules restrict any use of the information to criminally investigate or prosecute any alcohol or drug abuse patient.[facility] the event this information is protected by the Federal Confidentiality of Alcohol and Drug Abuse Patient Records regulations: The Federal rules restrict any use of the information to criminally investigate or prosecute any alcohol or drug abuse patient.[facility] Reason for Visit (unrecogniz ed section and content) Reason Comments Head Congestion ringing in ears and dizziness x 1 month Reason Comments right shoulder pain Reason Comments right hand pain X 2 days-cannot reca ll an injury Care Teams (unrecognized sec tion and content) Product Development Coordinator Relationship Specialty Start Date End Date Maria Eugenia Galarza MD [address], [place] [id number] PCP - General Family Practice 07/09/18 Product Development Coordinator Relationship Specialty Start Date End Date Maria Eugenia Galarza MD [address] [facility] [address] [place], [place] [id number] PCP - General Family Medicine 07/09/18 Product Development Coordinator Relationship Specialty Start Date End Date Maria Eugenia Galarza MD [address] [place] [address] PCP - General Family Medicine [...] BE BASED ON THE PRIMARY CLINICAL RECORDS. [facility] [employer] [facility]. provides no warranty or guarantee of the accuracy or completeness of information in this document.
--- NOTE | 2023-06-21 22:56 | ED.VIS.GI ---
HPI HPI - GI History of Present Illness Chief Complaint: Abd Pain Informant: patient Narrative Narrative: Patient presents with epigastric pain. Patient was at work. He started to get some epigastric pain. He thought he was just hungry. He was going to wait till he got his lunch break to eat. He did go to the restroom because he thought maybe he had gas. He did not move his bowels. But the pain in the epigastric area got worse. This prompted him to come to the emergency department. He vomited once after arrival here. He states it tasted like bad lemonade. But now he states his symptoms are completely resolved and he has no problems. When I talked to him I do find out that he has a history of GERD. I asked him if he is taking any medication for this and he was not sure if he was. But then I find out he is not taking any medications for anything. Therefore I suspect he is not taking something for GERD. PFSH PFS Medical History Anxiety CVA (cerebral vascular accident) Hypertension Noncompliance with medications Physical exam, pre-employment Tear of tendon of right upper extremity Home Medications omeprazole 20 mg capsule,delayed release 20 mg PO DAILY #30 CAPSULES 03/23/23 [Rx Last Taken Unknown] ondansetron 4 mg disintegrating tablet 4 mg PO Q8H PRN PRN Nausea #10 tabs 05/17/23 [Rx Last Taken Unknown] omeprazole 20 mg capsule,delayed release 20 mg PO DAILY #30 caps 06/21/23 [Rx Last Taken Unknown] Allergy/AdvReac Type Severity Reaction Status Date / Time No Known Allergies Allergy Verified 06/21/23 20:39 Surgical History History of tonsillectomy and adenoidectomy Social History Smoking Status: Current every day smoker tobacco type: e-cigarettes substance use type: does not use ROS ROS ED ROS Narrative A complete review of systems was performed and is negative except as documented in the history of present illness. Some specific details below. Constitutional: No recent fevers or chills. EYE: No visual complaints or pain. ENT: No difficulty swallowing. No swelling. No pain. CV: No chest pain or palpitations. Respiratory: No dyspnea. No hemoptysis. No difficulty taking breaths. GI: Please see history of present illness. Symptoms are now completely resolved. : No frequency dysuria or hematuria. Musculoskeletal: No recent trauma. No pains. Skin: No rash. Nondiaphoretic. Neuro: No weakness or numbness. Endocrine: No polyuria or polydipsia. EXAM Physical Exam Narrative Exam Narrative: CONSTITUTIONAL: Patient is nontoxic in appearance. The patient looks comfortable. HEENT: No notable trauma. Mucous membranes moist. No sinus tenderness. No indication of pain with swallowing. EYES: No conjunctival injection. No proptosis. CARDIOVASCULAR: Regular rate. Regular rhythm. No notable murmur. No JVD. RESPIRATORY: No respiratory distress. Breathing is unlabored. No wheezes. No rhonchi. No rales. No pain with a deep breath. GASTROINTESTINAL: Not distended. Bowel sounds are normal. No tenderness. No guarding. No rebound. No palpable mass. No bruit. Abdomen is completely benign. GENITOURINARY: No tenderness over the bladder. No CVA tenderness. MUSCULOSKELETAL: Atraumatic. No tenderness NEUROLOGICAL: Patient is alert and appropriate. No focal deficit noted. SKIN: No noted rashes. No diaphoresis. No pallor PSYCHIATRIC: Patient is calm. Mood is appropriate. Const Vital Signs: 06/21/23 20:39 Temperature 97 F L Temperature Source Temporal Pulse Rate 104 H Respiratory Rate 18 Blood Pressure 153/95 H Blood Pressure Mean 114 Pulse Ox 99 Oxygen Delivery Method Room Air MDM MDM MDM Narrative Medical decision making narrative: Patient's symptoms are completely resolved. His exam is benign. I do not think he needs a workup of either labs or imaging at this time. His symptoms match GERD. He started to get hungry which likely stimulated acid production. He could not eat. After he vomited and the acid was gone he felt better. We will get him on omeprazole which he used to be on. We discussed reasons to return. Discharge Plan Triage Chief Complaint: Abd Pain ED Provider: Lan Bartholomew Dx/Rx/DC Orders Clinical Impression: GERD (gastroesophageal reflux disease), Acute epigastric pain Instructions: ED GERD (Adult) Prescriptions: New omeprazole 20 mg capsule,delayed release(DR/EC) 20 mg PO DAILY Qty: 30 0RF No Action omeprazole 20 mg capsule,delayed release(DR/EC) 20 mg PO DAILY Qty: 30 0RF ondansetron [ondansetron] 4 mg tablet,disintegrating 4 mg PO Q8H PRN PRN (Reason: Nausea) Qty: 10 0RF Primary Care Provider: Eusebio Galarza Referrals: Eusebio Galarza MD [Primary Care Provider] - 3-5 Days if not improving Disposition Disposition: Home, Self Care
[2023-06-21] MEDS: Pantoprazole Sodium 20 MG Tablet PO (23:06)
[2023-06-21 23:08] VITALS: BP 135/71; PULSE 85; RESP 16; O2SAT 97
== END 2023-06-21 23:09 | disposition home or self-care (01) ==
PROVIDERS: Emergency Provider Emergency Medicine; PCP Family Medicine; Visit Provider Emergency Medicine
DX: K21.9 Gastro-esophageal reflux disease without esophagitis (principal); R10.13 Epigastric pain; F17.290 Nicotine dependence, other tobacco product, uncomplicated; Z86.73 Personal history of transient ischemic attack (TIA), and cerebral infarction without residual deficits
CPT/HCPCS: 99282

== ENCOUNTER 2023-10-03 23:18 | Emergency (ER) | payer OTHER, SELFPAY ==
[2023-10-03 23:19] VITALS: BP 164/89; PULSE 119; RESP 16; TEMP 36.6; O2SAT 99; BMI 35.4
--- NOTE | 2023-10-04 00:12 | RAD_ITS ---
INDICATION: injury EXAMINATION/TECHNIQUE: X-RAY - RIGHT XR Tibia/Fibula 2 Views COMPARISON: None. FINDINGS: SOFT TISSUES: Unremarkable. BONES/JOINTS: No fracture or dislocation. No significant degenerative changes. No erosive changes. RAD/Tibia & Fibula 2 Views IMPRESSION: No fracture. Electronically Signed: Joseph Mirza DO at 0:44 EDT ,
--- NOTE | 2023-10-04 00:47 | EDS_ITS ---
HPI History of Present Illness Chief Complaint: Lower Extremity Injury Informant: patient Narrative Narrative: Patient is a 23-year-old male with past medical history of hypertension. He states he was at work today around 3 or 4 PM when he fell in between a metal loading ramp and concrete pad striking his right ryder. He denies any other trauma and states that he was able to get up and walk and continue working. He states however he tripped once more and then scraped his ryder and following this had increased pain that was not improving with time or [id number] medication. He states has been able to ambulate but because of the trauma had concern for underlying bony injury and therefore comes in for evaluation [facility] Medical History Anxiety CVA (cerebral vascular accident) Hypertension Noncompliance with medications Physical exam, pre-employment Tear of tendon of right upper extremity Home Medications ?Medication ?Instructions ?Recorded ?Last Taken ?Type NK 10/03/23 Unknown History Allergy/AdvReac Type Severity Reaction Status Date / Time No Known Allergies Allergy Verified 10/03/23 23:22 Surgical History History of tonsillectomy and adenoidectomy Social History Smoking Status: Current every day smoker tobacco type: e-cigarettes substance use type: does not use ROS ROS ED Constitutional Constitutional ED: Denies chills or fever(s) ENT ENT ED: Denies sore throat Cardiovascular Cardiovascular: Denies chest pain Respiratory/Chest Respiratory/Chest: Denies cough or dyspnea Gastrointestinal Gastrointestinal: Denies abdominal pain, diarrhea, nausea or vomiting Genitourinary Genitourinary ED: Denies dysuria Musculoskeletal Musculoskeletal: Reports other Details: Positive right lower leg pain Integumentary Reports Abrasions; Denies rash Neurologic Neurologic: Denies headache(s) or paresthesias Hematologic/Lymphatic Hematologic/Lymphatic: Denies easy bleeding or easy bruising EXAM Physical Exam Const Vital Signs: 10/03/23 23:19 10/04/23 01:03 Temperature 98 F 97.6 F L Temperature Source Temporal Pulse Rate 119 H 88 Respiratory Rate 16 20 H Blood Pressure 164/89 H 150/94 H Blood Pressure Mean 114 112 Pulse Ox 99 94 Oxygen Delivery Method Room Air Positive well nourished, well developed and obese General Appearance ED: well developed Nutritional Appearance: obese HEENT HEENT Narrative: Normocephalic atraumatic Eyes PERRL and EOMs intact bilaterally General Eye ED: Negative for scleral icterus Neck supple Resp normal respiratory effort and clear to auscultation bilaterally Cardio regular rate and regular rhythm Extremity Extremity Narrative: There is tenderness to palpation along the distal third of the right anterior tibia without any obvious bony deformity or joint effusion noted. There is a superficial abrasion at the site as well that is clean dry and intact without surrounding soft tissue skin changes to suggest infection. Remainder of the exam is normal Neuro oriented x3, CN's II-XII intact bilaterally and no sensory deficits noted Sensorium / Orientation: alert Motor Exam: strength 5/5 throughout Psych mental status grossly normal Skin Skin Narrative: Superficial abrasion to the right anterior ryder as documented above MDM MDM MDM Narrative Medical decision making narrative: Patient presented to the ER hypertensive but has a past medical history of this. He reported mechanical fall causing the first and second time trauma to the right ryder and therefore there is no need for cardiac or syncope workup. Physical exam shows mild swelling with superficial abrasion but there are no findings to suggest infection. With differential diagnosis being contusion versus fracture and x-ray was obtained. X-ray revealed no acute findings indicating this is a contusion which is consistent with his history and exam. Patient will be instructed on symptomatic care and is otherwise safe for discharge Radiography Diagnostic Testing: Clinical Impression(s) from Imaging Studies Tibia/Fibula X-Ray 10/04/23 00:12 IMPRESSION: No fracture. Electronically Signed: Joseph Mirza DO at 0:44 EDT , X-ray of the right tibia/fibula as interpreted by the emergency medicine physician reveals no acute fracture or dislocation Discharge Plan Triage Chief Complaint: Lower Extremity Injury ED Provider: Cas Gordon Dx/Rx/DC Orders Clinical Impression: Contusion of right tibia, Hypertension, Abrasion of anterior right lower leg Instructions: Bone Contusion Prescriptions: No Action NK Primary Care Provider: Herrera Galarza Referrals: Herrera Galarza MD [Primary Care Provider] - Print Language: Estonian Disposition Disposition: Home, Self Care Discharge Date/Time: 10/04/23 01:03
[2023-10-04 01:03] VITALS: BP 150/94; PULSE 88; RESP 20; TEMP 36.4; O2SAT 94
== END 2023-10-04 01:03 | disposition home or self-care (01) ==
PROVIDERS: Emergency Provider Emergency Medicine; PCP Family Medicine; Visit Provider Emergency Medicine
DX: S80.811A Abrasion, right lower leg, initial encounter (principal); F17.290 Nicotine dependence, other tobacco product, uncomplicated; I10 Essential (primary) hypertension; Z86.73 Personal history of transient ischemic attack (TIA), and cerebral infarction without residual deficits; W19.XXXA Unspecified fall, initial encounter
CPT/HCPCS: 73590; 99282

== ENCOUNTER 2023-11-14 02:18 | Emergency (ER) | payer OTHER, SELFPAY ==
[2023-11-14 02:19] VITALS: BP 160/112; PULSE 120; RESP 18; TEMP 36.3; O2SAT 98; BMI 36.6
--- NOTE | 2023-11-14 02:30 | EX.ED.DYSGE1 ---
HPI History of Present Illness Chief Complaint: Burn Informant: patient Narrative Narrative: Healthy 23-year-old male was out in the sun for a long time couple days ago, he developed a sunburn and is having a lot of pain where he is having blistering on the back of his neck and shoulders. He states he assumed it was sunburn, but since he had blistering he is concerned that he may have sun poisoning and therefore was apprehensive about applying anything to it before he became evaluated. He takes no systemic medications and has no major medical problems. [facility] Medical History Tear of tendon of right upper extremity Noncompliance with medications Anxiety CVA (cerebral vascular accident) Physical exam, pre-employment Hypertension Home Medications ?Medication ?Instructions ?Recorded ?Last Taken ?Type NK 10/03/23 Unknown History Allergy/AdvReac Type Severity Reaction Status Date / Time No Known Allergies Allergy Verified 10/03/23 23:22 Surgical History History of tonsillectomy and adenoidectomy Social History Smoking Status: Current some day smoker tobacco type: e-cigarettes substance use type: does not use ROS ROS ED Constitutional Constitutional ED: Denies chills or fever(s) Musculoskeletal Musculoskeletal: Reports neck pain Integumentary Reports as per HPI and rash; Denies pruritus Neurologic Neurologic: Denies headache(s), paresthesias or weakness EXAM Physical Exam Const Vital Signs: 11/14/23 02:19 11/14/23 02:21 11/14/23 02:48 Temperature 97.4 F L 97.4 F L Temperature Source Oral Pulse Rate 120 H 102 H Respiratory Rate 18 18 Respiratory Effort Normal Respiratory Depth Normal Respiratory Pattern Normal Blood Pressure 160/112 H 160/85 H Blood Pressure Mean 128 110 Pulse Ox 98 97 Oxygen Delivery Method Room Air Positive well nourished and well developed General Appearance ED: well developed and NAD HEENT Reports moist mucous membranes Eyes PERRL and EOMs intact bilaterally Neck supple Neck Narrative: Tender posteriorly paraspinal neck and posterior trapezius/shoulders where there is secondary sunburn Psych mental status grossly normal Skin Skin Narrative: Diffuse tender erythema bilateral upper arms and neck and upper back, with more significant tenderness where there is nonruptured blistering on the back of his neck and shoulders. Patient currently has on a sleeveless T-shirt, and beneath these areas on top of his shoulders, the skin is spared with no erythema or tenderness. There is no evidence of third-degree or necrotic involvement. MDM MDM MDM Narrative Medical decision making narrative: Patient reassured this is all consistent with sunburn, with some second-degree involvement on the backs of his shoulders and neck. He was given Naprosyn and tramadol here tonight, he states the spray he has at home is Solarcaine, which I advised him is safe to use on all of the affected sore/painful areas. Supportive care advised. Discharge Plan Triage Chief Complaint: Burn ED Provider: Bassam Pittman Dx/Rx/DC Orders Clinical Impression: Second degree sunburn Instructions: ED Sunburn, ED Burn, Second-Degree Prescriptions: No Action NK Primary Care Provider: Herrera Galarza Referrals: Herrera Galarza MD [Primary Care Provider] - 1 Week if not improving Print Language: Irish Disposition Disposition: Home, Self Care Discharge Date/Time: 11/14/23 02:51
[2023-11-14 02:48] VITALS: BP 160/85; PULSE 102; RESP 18; TEMP 36.3; O2SAT 97
[2023-11-14] MEDS: traMADol 50 MG Tablet PO (02:49)
[2023-11-14] MEDS: Naproxen 500 MG Tablet PO (02:49)
== END 2023-11-14 02:51 | disposition home or self-care (01) ==
PROVIDERS: Emergency Provider Emergency Medicine; PCP Family Medicine; Visit Provider Emergency Medicine
DX: L55.1 Sunburn of second degree (principal); I10 Essential (primary) hypertension; Z86.73 Personal history of transient ischemic attack (TIA), and cerebral infarction without residual deficits; F17.290 Nicotine dependence, other tobacco product, uncomplicated
CPT/HCPCS: 99282

== ENCOUNTER 2024-03-17 13:53 | Emergency (ER) | payer OTHER, SELFPAY ==
[2024-03-17 13:54] VITALS: BP 174/109; PULSE 113; RESP 20; TEMP 36.1; O2SAT 99; BMI 36.2
--- NOTE | 2024-03-17 14:42 | ED.RN ---
Pt stated he did not want to wait any longer and would return to ED later when it calms down
== END 2024-03-17 14:40 | disposition left against medical advice (07) ==
LOC: ED 14:44
PROVIDERS: PCP Family Medicine
DX: Z53.21 Procedure and treatment not carried out due to patient leaving prior to being seen by health care provider (principal)

== ENCOUNTER 2024-04-30 12:56 | Emergency (ER) | payer SELFPAY ==
[2024-04-30 12:56] VITALS: BP 150/95; PULSE 97; RESP 16; TEMP 36.8; O2SAT 100; BMI 35.4
--- NOTE | 2024-04-30 13:34 | EDS_ITS ---
HPI <BEVERLY Man - Last Filed: 04/30/24 15:15> History of Present Illness Chief Complaint: Dizziness Narrative Narrative: Patient presenting today with intermittent dizziness he has had over the last year. He reports that he notices his symptoms at night when he lays on his left side, if he lays on his right side the symptoms go away. 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 He reports intermittent paresthesias to his right cheek over the last year, he denies having any paresthesias at this time. He has a history of anxiety and has been using a marijuana vape but broke it yesterday because he does not want to be using it anymore and thinks it could be contributing to his symptoms. He reports that over the past 2 days he has had pain to his bilateral ears that is worse on the right. He denies any fevers or chills. PFSH <BEVERLY Man - Last Filed: 04/30/24 15:15> [facility] Medical History Tear of tendon of right upper extremity Noncompliance with medications Anxiety CVA (cerebral vascular accident) Physical exam, pre-employment Hypertension Home Medications ?Medication ?Instructions ?Recorded ?Last Taken ?Type amoxicillin 875 mg tablet 875 mg PO BID #14 tabs 04/30/24 Unknown Rx Allergy/AdvReac Type Severity Reaction Status Date / Time No Known Allergies Allergy Verified 04/30/24 13:01 Surgical History History of tonsillectomy and adenoidectomy Social History Smoking Status: Current some day smoker tobacco type: e-cigarettes substance use type: does not use ROS <BEVERLY Man - Last Filed: 04/30/24 15:15> ROS ED Constitutional Constitutional ED: Denies chills or fever(s) ENT ENT ED: Reports ear pain bilateral Cardiovascular Cardiovascular: Denies chest pain or palpitations Respiratory/Chest Respiratory/Chest: Denies dyspnea Gastrointestinal Gastrointestinal: Denies abdominal pain, nausea or vomiting Musculoskeletal Musculoskeletal: Denies arthralgias or myalgias Integumentary Denies rash Neurologic Neurologic: Reports dizziness; Denies headache(s) or weakness EXAM <BEVERLY Man - Last Filed: 04/30/24 15:15> Physical Exam Const Vital Signs: 04/30/24 12:56 Temperature 98.2 F Temperature Source Oral Pulse Rate 97 Respiratory Rate 16 Blood Pressure 150/95 H Blood Pressure Mean 113 Pulse Ox 100 Oxygen Delivery Method Room Air Positive well nourished, well developed and no apparent distress General Appearance ED: well developed HEENT Reports normocephalic and head/scalp atraumatic HEENT Narrative: Left cerumen impaction, this was irrigated with saline after Debrox administration and I am able to visualize bilateral TMs with effusions, right TM slightly erythematous. Clear EACs bilaterally, no mastoid tenderness bilaterally. Mouth ED: Yes moist mucous membranes normal Eyes PERRL and EOMs intact bilaterally Eyes Narrative: No nystagmus. Neck full ROM and supple Chest Wall inspection of chest normal Resp normal respiratory effort and clear to auscultation bilaterally Cardio regular rate and regular rhythm Back/Spine normal ROM and normal to inspection Extremity normal to inspection and full ROM Neuro oriented x3, CN's II-XII intact bilaterally, moves all extremities, no focal motor deficits and no sensory deficits noted Neuro Narrative: Negative test of skew, no truncal ataxia, ambulating without difficulty, non- ataxic gait. NIH 0 Sensorium / Orientation: awake and alert Psych mental status grossly normal and thought process normal Skin no rashes or lesions noted and no wounds <Figueroa Narvaez MD - Last Filed: 04/30/24 15:54> Physical Exam Const Vital Signs: 04/30/24 12:56 Temperature 98.2 F Temperature Source Oral Pulse Rate 97 Respiratory Rate 16 Blood Pressure 150/95 H Blood Pressure Mean 113 Pulse Ox 100 Oxygen Delivery Method Room Air MDM <BEVERLY Man - Last Filed: 04/30/24 15:15> [facility] Narrative Medical decision making narrative: Patient presenting today with dizziness he has had over the past year or so when laying on his left side. I did perform a Phuc-Hallpike maneuver, it is positive on the left, I did not appreciate any nystagmus. He does have a history of a TIA, however, he has an NIH of 0, negative test of skew, no ataxia. His examination is consistent with BPPV which he has a history of and has been seen for in the past. He also had a cerumen impaction on the left that was resolved after Debrox administration and saline irrigation. He then reported improvement of his symptoms. I am then able to visualize bilateral TMs which have e ffusions, the right TM is slightly erythematous. I will cover him for otitis media with amoxicillin. I have given him an ENT referral. He also requested referral for mental health services regarding his anxiety, I referred him to the [facility]. He reported intermittent paresthesias to his right cheek over the last year. I did offer to obtain labs to further work this up but he declined. I recommended he follow-up with his PCP. He will be discharged home in stable condition. <Figueroa Narvaez MD - Last Filed: 04/30/24 15:54> [facility] Narrative Medical decision making narrative: Patient presenting today with dizziness he has had over the past year or so when laying on his left side. I did perform a Phuc-Hallpike maneuver, it is positive on the left, I did not appreciate any nystagmus. He does have a history of a TIA, however, he has an NIH of 0, negative test of skew, no ataxia. His examination is consistent with BPPV which he has a history of and has been seen for in the past. He also had a cerumen impaction on the left that was resolved after Debrox administration and saline irrigation. He then reported improvement of his symptoms. I am then able to visualize bilateral TMs which have effusions, the right TM is slightly erythematous. I will cover him for otitis media with amoxicillin. I have given him an ENT referral. He also requested referral for mental health services regarding his anxiety, I referred him to the [facility]. He reported intermittent paresthesias to his right cheek over the last year. I did offer to obtain labs to further work this up but he declined. I recommended he follow-up with his PCP. He will be discharged home in stable condition. Dr. Narvaez: I have personally performed a face to face assessment of the patient and have reviewed the AKILAH Note. I performed a substantive portion of the visit including all aspects of the following. My fajardo findings include: History is intermittent dizziness for approximately 1 year. Bilateral ear pain right greater than left. Exam is afebrile. Vital signs noted. Nontoxic-appearing. No mastoid erythema or tenderness to percussion bilaterally. Right TM with mild erythema and positive effusion. Left TM obscured by cerumen impaction. Medical Decision Making: Patient has longstanding complaints of dizziness. He has vertiginous type symptoms but I do not feel CT of the brain is indicated. He has no reason to be dehydrated. Through shared decision making, laboratory work was deferred. Left TM was instilled with Debrox and irrigated by RN. Feels improvement. Given his effusion and TM erythema on the right, will be treated as otitis media with antibiotics. Follow-up primary care. Disposition is discharged home in stable condition. Other additions or changes: [None] History & Record Review Discussion w/independent historian: Patient Discharge Plan Triage Chief Complaint: Dizziness ED Midlevel Provider: Lesa Chairez ED Provider: Figueroa Narvaez Dx/Rx/DC Orders Clinical Impression: Benign paroxysmal positional vertigo, Acute otitis media with effusion, An xiety, Impacted cerumen, left ear Instructions: BPPV, ED Otitis Media Adult Prescriptions: New amoxicillin 875 mg tablet 875 mg PO BID Qty: 14 0RF Primary Care Provider: Herrera Galarza Referrals: Herrera Galarza MD [Primary Care Provider] - 5-7 Days Jon Abdul MD [Med Staff - Active Staff] - 5-7 Days Activity Restrictions/Additional Instructions: You can follow up with the [facility] clinic at [phone] for mental health services. Follow-up with your PCP. Also follow-up with ENT. Print Language: Turkish Disposition Disposition: Home, Self Care Discharge Date/Time: 04/30/24 14:00
== END 2024-04-30 14:00 | disposition home or self-care (01) ==
PROVIDERS: Emergency Provider Emergency Medicine; PCP Family Medicine; Visit Provider Emergency Medicine
DX: H81.10 Benign paroxysmal vertigo, unspecified ear (principal); F41.9 Anxiety disorder, unspecified; H66.93 Otitis media, unspecified, bilateral; F17.290 Nicotine dependence, other tobacco product, uncomplicated; H61.22 Impacted cerumen, left ear; Z86.73 Personal history of transient ischemic attack (TIA), and cerebral infarction without residual deficits
CPT/HCPCS: 99283

== ENCOUNTER 2024-05-11 15:53 | Emergency (ER) | payer SELFPAY ==
[2024-05-11 15:54] VITALS: BP 137/97; PULSE 128; RESP 16; TEMP 36.8; O2SAT 98; BMI 34.9
--- NOTE | 2024-05-11 16:14 | EDS_ITS ---
HPI History of Present Illness Chief Complaint: Dizziness Informant: patient Narrative Narrative: Presenting worsening vertigo symptoms 2:30 PM. Seen 11 days ago right ear infection finished antibiotics ear pains improved. 2 days ago had spinning sensations that went away. This morning had mild symptoms while at work bent over at 230 felt worsening symptoms felt he is going to fall back. No nausea or vomiting. No history of similar prior to this. No past medical history. No current PCP. No allergies to any medications. Prior similar symptoms: Yes PFSH PFSH Medical History Tear of tendon of right upper extremity Noncompliance with medications Anxiety CVA (cerebral vascular accident) Physical exam, pre-employment Hypertension Home Medications ?Medication ?Instructions ?Recorded ?Last Taken ?Type amoxicillin 875 mg tablet 875 mg PO BID #14 tabs 04/30/24 Unknown Rx meclizine 25 mg tablet 25 mg PO 4X/DAY PRN PRN Dizziness 05/11/24 Unknown Rx #20 tabs Allergy/AdvReac Type Severity Reaction Status Date / Time No Known Allergies Allergy Verified 05/11/24 15:54 Surgical History History of tonsillectomy and adenoidectomy Social History Smoking Status: Current some day smoker tobacco type: e-cigarettes substance use type: does not use ROS ROS ED Constitutional Constitutional ED: Denies chills, fever(s) or sweats ENT ENT ED: Denies sore throat Cardiovascular Cardiovascular: Denies chest pain, leg edema, palpitations or racing heartbeat Respiratory/Chest Respiratory/Chest: Denies cough, dyspnea or dyspnea on exertion Gastrointestinal Gastrointestinal: Denies abdominal pain, diarrhea, nausea or vomiting Genitourinary Genitourinary ED: Denies dysuria, hematuria or urinary frequency Musculoskeletal Musculoskeletal: Denies back pain, extremity pain or neck pain Integumentary Denies rash or wounds Neurologic Neurologic: Reports other Details: Vertical ; Denies headache(s), paresthesias or weakness EXAM Physical Exam Const Vital Signs: 05/11/24 15:54 05/11/24 17:25 Temperature 98.2 F 98.1 F Temperature Source Oral Pulse Rate 128 H 72 Respiratory Rate 16 16 Blood Pressure 137/97 H 137/63 H Blood Pressure Mean 110 87 Pulse Ox 98 97 Oxygen Delivery Method Room Air Positive well nourished and well developed General Appearance ED: well developed and NAD HEENT Reports moist mucous membranes HEENT Narrative: Right TM still mild opacification posteriorly, TM intact. normocephalic and atraumatic Eyes Eyes Narrative: No nystagmus General Eye ED: Yes normal appearance of both eyes Neck full ROM Chest Wall Chest: Negative for tenderness Resp normal respiratory effort and normal air movement Effort and Inspection: symmetric chest movement; Negative for respiratory distress Cardio regular rate, regular rhythm and no murmurs Peripheral Pulses: pulses 2+ throughout GI normal to inspection, nondistended, normoactive bowel sounds and non-tender Palpation: Negative for guarding or rebound tenderness present Extremity normal to inspection General Extremety ED: Negative for edema or tenderness General Extremity: Negative for edema Neuro oriented x3, CN's II-XII intact bilaterally and no sensory deficits noted Neuro Narrative: Phuc-Hallpike negative bilaterally. NIH of 0. Sensorium / Orientation: awake and alert Skin no rashes or lesions noted and no wounds MDM MDM MDM Narrative Medical decision making narrative: Interventions / MDM: Differential diagnosis: Vertigo, recent right ear infection. Diagnosis considered but do not suspect: N/A My EKG interpretation: N/A Imaging independently reviewed and interpreted by myself: N/A External documents reviewed: N/A Test considered but not ordered:N/A ED course: Patient no focal neurologic deficit. Present with vertigo symptoms. Symptoms improving. He has residual findings of his right ear infection with improving pain. This could be eliciting his middle ear causing symptoms. At this time we will treat with meclizine, will reevaluate. 1715: Patient feeling better on evaluation. He ambulated in the emergency department. With his opacification right TM with improvement your symptoms. He is referred to ENT. Prescription for meclizine to use as needed. Work note provided. All questions were answered. Re-evaluation: stable Disposition discussed with patient/family/significant other: Patient Case discussed with consulting clinician: N/A This note was generated with [employer] dictation software. It may contain incorrect words, spelling, and punctuation that were not noted in checking the note before signing. Discharge Plan Triage Chief Complaint: Dizziness ED Provider: Le,Guy Dx/Rx/DC Orders Clinical Impression: Vertigo, Dizziness Instructions: ED Vertigo, Unspecified Prescriptions: New meclizine 25 mg tablet 25 mg PO 4X/DAY PRN PRN (Reason: Dizziness) Qty: 20 0RF No Action amoxicillin 875 mg tablet 875 mg PO BID Qty: 14 0RF Stand Alone Forms: ED Work / School Excuse Primary Care Provider: Herrera Galarza Referrals: Herrera Galarza MD [Primary Care Provider] [place] [Med Staff - Active Staff] - 1 Week Activity Restrictions/Additional Instructions: You have vertigo symptoms with right ear infection. Still opacification right ear drum however your ear pain has been improved. Follow-up with ENT for outpatient evaluation. Take meclizine as prescribed as needed. Print Language: Kazakh Disposition Disposition: Home, Self Care Discharge Date/Time: 05/11/24 17:27
[2024-05-11] MEDS: Meclizine HCl 25 MG Tablet PO (16:20)
[2024-05-11 17:25] VITALS: BP 137/63; PULSE 72; RESP 16; TEMP 36.7; O2SAT 97
== END 2024-05-11 17:27 | disposition home or self-care (01) ==
PROVIDERS: Emergency Provider Emergency Medicine; PCP Family Medicine; Visit Provider Emergency Medicine
DX: R42 Dizziness and giddiness (principal); F17.290 Nicotine dependence, other tobacco product, uncomplicated
CPT/HCPCS: 99282

== ENCOUNTER 2024-09-09 21:16 | Emergency (ER) | payer SELFPAY ==
[2024-09-09 21:17] VITALS: BP 145/94; PULSE 105; RESP 18; TEMP 36.6; O2SAT 99; BMI 35.4
[2024-09-09 21:26] VITALS: BP 140/89; PULSE 98; RESP 18; TEMP 36.6; O2SAT 99
--- NOTE | 2024-09-09 21:26 | EDS_ITS ---
HPI <ALEN Palmer - Last Filed: 09/09/24 21:31> History of Present Illness Chief Complaint: Allergic Reaction Narrative Narrative: Patient is a 24-year-old male with no significant history. Patient states years ago, when he was a child he had a strawberry did not like the way it made him feel centimeter feel tingly, and he just avoided strawberries. Patient states today [place] the mall he drank a watermelon drink, and he believes there was strawberry in it. He then felt some tingling sensation, some anxiety, he took a Benadryl did feel better. Patient states he is feeling mostly better however he just wants to get checked out PFSH <ALEN Palmer - Last Filed: 09/09/24 21:31> PFSH Medical History Tear of tendon of right upper extremity Noncompliance with medications Anxiety CVA (cerebral vascular accident) Physical exam, pre-employment Hypertension Home Medications ?Medication ?Instructions ?Recorded ?Last Taken ?Type diphenhydramine HCl 25 mg capsule 25 mg PO TID PRN all ergic reaction 09/09/24 Unknown Rx (Benadryl) #20 caps Allergy/AdvReac Type Severity Reaction Status Date / Time strawberry (strawberries) Allergy Mild Other Verified 09/09/24 21:17 Surgical History History of tonsillectomy and adenoidectomy Social History Smoking Status: Current every day smoker tobacco type: e-cigarettes substance use type: does not use ROS <ALEN Palmer - Last Filed: 09/09/24 21:31> ROS ED ROS Narrative Constitutional: Negative for fever, chills, weight loss, weakness Eyes: Negative for vision loss, vision change, double vision ENT: Negative for any sore throat, ear pain, congestion Cardiovascular: Negative for any chest pain, tightness, palpitations Respiratory: Negative for any cough, sputum production, hemoptysis, dyspnea, dyspnea on exertion, orthopnea Gastrointestinal: Negative for any abdominal pain, nausea, vomiting, diarrhea, constipation, blood in stool, blood in vomit : Negative for any urinary frequency, dysuria, retention, blood in urine Muscle skeletal: Negative for any neck pain, back pain. Positive for tingling sensation throughout the body Neurological: Negative for any headache, syncope, dizziness Skin: Negative for any rashes, itching, abrasions, lacerations Psychiatric: Negative for any depression, anxiety, stress, suicidal ideation, homicidal ideation. Positive for anxiety Hematologic: Negative for any excessive bruising, easy bleeding EXAM <ALEN Palmer - Last Filed: 09/09/24 21:31> Physical Exam Narrative Exam Narrative: Vital signs reviewed. HEET: Head normocephalic atraumatic, TMs clear bilaterally. Posterior pharynx is clear, moist mucous membranes. Nares clear bilaterally. Speaking clearly, p atient is in no distress Neck: Supple with no lymphadenopathy or tenderness. No signs of meningismus. Cardiac: Regular rate and rhythm no murmurs gallops or rubs, equal peripheral pulses bilaterally. Respiratory: Lungs clear to auscultation bilaterally. No chest tenderness. Abdomen: Soft, nontender, nondistended. No abdominal bruit or pulsatile masses. No hepatosplenomegaly Extremities: No peripheral edema, no signs of gross trauma or deformity. Active full range of motion of all extremities. Neuro: Cranial nerves II through XII intact, no focal neurological deficits. Skin: Clean dry and intact with no rash, purpura, petechiae, vesicles or pustules. Backs/flank: No CVA tenderness, no midline spinal tenderness, no deformity. Psych: Normal mood and affect. No SI, HI or acute psychosis. Const Vital Signs: 09/09/24 21:17 09/09/24 21:26 Temperature 97.8 F 97.9 F Temperature Source Temporal Pulse Rate 105 H 98 Respiratory Rate 18 18 Blood Pressure 145/94 H 140/89 H Blood Pressure Mean 111 106 Pulse Ox 99 99 Oxygen Delivery Method Room Air <Dr. Hunter Horan MD - Last Filed: 09/09/24 22:03> Physical Exam Const Vital Signs: 09/09/24 21:17 09/09/24 21:26 Temperature 97.8 F 97.9 F Temperature Source Temporal Pulse Rate 105 H 98 Respiratory Rate 18 18 Blood Pressure 145/94 H 140/89 H Blood Pressure Mean 111 106 Pulse Ox 99 99 Oxygen Delivery Method Room Air [facility] [place] <ALEN Palmer - Last Filed: 09/09/24 21:31> [facility] [place] Treatment and Re-Evaluation :: Differential diagnosis includes however is not limited to: Anaphylaxis, allergic reaction, anxiety, viral gastroenteritis Patient appears generally well, vital signs are stable, patient is nontoxic- appearing. Presenting to the emergent department after ingesting a strawberry drink, and feeling that he may be having an allergic reaction. Patient did take Benadryl at roughly 5:30 PM and did feel immediately better. He states he still feels better, he just would like to get checked out. On my physical examination, is no red flag signs, patient looks to be in no distress. He will continue to take Benadryl for his symptoms. He instructed to stay away from strawberries. He is instructed return for any worsening symptoms, all questions answered. <Dr. Hunter Horan MD - Last Filed: 09/09/24 22:03> [facility] Narrative Medical decision making narrative: I have personally performed a face to face assessment of the patient and have reviewed the AKILAH Note. I performed a substantive portion of the visit including all aspects of the following. My fajardo findings include: History is remarkable for patient having strawberry and his watermelon drink. Significant other gave him a Benadryl pill because he reportedly had a reaction he was younger. He denies swelling of his lips tongue or throat. He denied itching. He denied trouble with swallowing or change in his voice. He denied cardiac respiratory symptoms. He denied orthostatic symptoms. Patient wanted to make sure. Exam is normal. HEENT is unremarkable no evidence of angioedema. There is no dysphonia. Trachea is midline. There is no stridor. Heart lung exam is normal. There is no dermatologic lesions noted Medical Decision Making patient was informed that he does not in have an allergy to strawberries based on his symptoms. He was discharged home in stable condition Other additions or changes: [None] Discharge Plan Triage Chief Complaint: Allergic Reaction ED Midlevel Provider: Ace Singh ED Provider: Hunter Horan Dx/Rx/DC Orders Clinical Impression: Allergic reaction Instructions: ED Food Allergy, Allergy Overview Prescriptions: New diphenhydramine HCl [Benadryl] 25 mg capsule 25 mg PO TID PRN (Reason: allergic reaction) Qty: 20 0RF Primary Care Provider: Herrera Galarza Referrals: Herrera Galarza MD [Primary Care Provider] - Activity Restrictions/Additional Instructions: Maintain hydration, take another Benadryl tonight if need be. Print Language: Vincentian Disposition Disposition: Home, Self Care Discharge Date/Time: 09/09/24 21:39
== END 2024-09-09 21:39 | disposition home or self-care (01) ==
LOC: ED 21:38
PROVIDERS: Emergency Provider Emergency Medicine; PCP Family Medicine; Visit Provider Emergency Medicine
DX: T78.40XA Allergy, unspecified, initial encounter (principal); X58.XXXA Exposure to other specified factors, initial encounter; F17.290 Nicotine dependence, other tobacco product, uncomplicated
CPT/HCPCS: 99283